=== PATIENT | female | born 1995 | race Caucasian/White ===

== ENCOUNTER 2020-11-10 11:16 | Outpatient (REF) | payer MEDICAID, SELFPAY ==
--- NOTE | 2020-11-10 11:28 | XR_ITS ---
EXAMINATION: XR KNEE, RIGHT CLINICAL INFORMATION: Right knee pain and instability COMPARISON: None TECHNIQUE: Four views of the right knee. FINDINGS: No fracture or subluxation. Compartmental joint spaces are maintained. No joint effusion. The soft tissues are unremarkable. XR/XR knee RT 4V IMPRESSION: Normal right knee.
== END 2020-11-10 11:17 | disposition home or self-care (01) ==
LOC: HO.XRAY 11:16
PROVIDERS: PCP Registered Nurse Community Health; Visit Provider Registered Nurse Community Health
DX: M23.51 Chronic instability of knee, right knee (principal)
CPT/HCPCS: 73564

== ENCOUNTER 2020-12-25 14:00 | Outpatient (RCR) | payer MEDICAID, SELFPAY | END 2021-01-13 15:15 | disposition other institution (70) | LOC: HO.PT 14:00 | PROVIDERS: PCP Registered Nurse Community Health; Visit Provider Registered Nurse Community Health | DX: M23.51 Chronic instability of knee, right knee (principal) | CPT/HCPCS: 97110; 97161; 97530 ==

== ENCOUNTER 2021-08-23 15:41 | Emergency (ER) | payer MEDICAID, SELFPAY ==
--- NOTE | ~2021-08-23 | US_ITS ---
EXAMINATION: US OBSTETRICAL ULTRASOUND CLINICAL INFORMATION: 7 weeks with cramping COMPARISON: OB ultrasound 08/17/2009. LMP: 07/08/2021. Gestational age by maternal dates is 6 weeks 4 days. Estimated date of delivery by maternal dates is 04/14/2022. TECHNIQUE: Both transabdominal and endovaginal scanning was performed. FINDINGS: A gestational sac is seen. A pole or yolk sac is not identified. Based upon the gestational sac size with a mean diameter of 0.56 cm, gestational age would be 5 weeks 1 day. Around the gestational sac, there is slightly irregular fluid collection seen which may represent some subchorionic hemorrhage. MATERNAL ADNEXA: The right has been removed The left maternal ovary measures 3.8 x 2.2 x 2.9 cm. There is no significant maternal adnexal mass. A small amount of fluid present in the cul-de-sac. US/US OB pelvic and transvaginal IMPRESSION: A gestational sac is seen without a pole or yolk sac. Some fluid is present around this which may represent a subchorionic bleed. Based upon the size of the sac gestational age by ultrasound would be 5 weeks 1 day. Recommend correlation with hCG and follow-up short interval ultrasound
[2021-08-23 17:12] VITALS: BP 135/89; PULSE 79; RESP 18; TEMP 36.4; O2SAT 100; BMI 28.3
--- NOTE | 2021-08-23 18:23 | ED_ITS ---
HPI - General Adult General Chief complaint: Abdominal Pain Stated complaint: first trimester cramping Time Seen by Provider: 08/23/21 18:21 Source: patient Mode of arrival: ambulatory Limitations: no limitations History of Present Illness HPI narrative: 26-year-old female about 7-8 weeks presented with 2 days of right-sided pelvic pain with cramps that radiate to the back. No vaginal bleeding, patient recently just found out about her . Patient declined nausea, vomiting, fever, chills, vaginal bleeding. No history of PID or STD. No history of ectopic . History of surgical removal of 1 of her ovaries. Related Data Allergies Allergy/AdvReac Type Severity Reaction Status Date / Time No Known Allergies Allergy Unverified 08/13/20 17:27 Review of Systems Review of Systems: All other systems are reviewed and are negative Constitutional: Reports as per HPI and Reports no additional constitutional complaints Eyes: Reports as per HPI and Reports no additional eye complaints Reports system reviewed and no additional complaints, except as documented Cardiovascular: Reports as per HPI and Reports no additional cardiovascular complaints Respiratory: Reports as per HPI and Reports no additional respiratory complaints Gastrointestinal: Reports as per HPI and Reports no additional gastrointestinal complaints Genitourinary: Reports no additional female genitourinary complaints Musculoskeletal: Reports no additional musculoskeletal complaints Skin/Breast: Reports system reviewed and no additional complaints, except as do cu Psychiatric: Reports no additional psychiatric complaints Endocrine: Reports no additional endocrine complaints Hematologic/Lymphatic: Reports no additional hematologic/lymphatic complaints Allergic/Immunologic: Reports no additional allergic/immunologic complaints Reports system reviewed and no additional complaints, except as documented and Reports Abnormal speech present [facility] Past Medical History Medical History Anxiety Social History Social History Advance Directives: No Advance Directives Information Provided: No Patient : Yes Physical Exam Vital Signs: Vital Signs: Last Vital Signs Temp 99.7 F 08/23/21 18:41 Pulse 90 08/23/21 18:41 Resp 16 08/23/21 18:41 BP 133/84 08/23/21 18:41 Pulse Ox 99 08/23/21 18:41 Body Mass Index 28.3 Vital signs have been reviewed as appeared to be correct. Blood pressure normal. Heart rate normal. Respiration rate normal. Temperature normal. Oxygen saturation normal. Appearance: Alert. Oriented X3. No acute distress. Head: Normal external exam. Normocephalic. Atraumatic. No Cordero signs noted. No raccoon eyes noted Eyes: PERRLA. EOMI. Conjunctiva and sclera normal. Eyelids normal. ENT: TM's Normal. Pharynx normal. Uvula midline. Moist mucous membranes. No trismus noted. No drooling noted. No muffled voice noted. Neck: Normal inspection. Neck supple. FROM. No adenopathy. Thyroid Normal. No meningeal signs. No neck mass noted. CVS: Normal heart rate and rhythm. Heart sound normal. No murmurs noted. Pulses normal throughout. Respiratory: No respiratory distress. Painless inspiration. Breath sounds normal. No wheezes/rales/rhonchi noted. Chest nontender. No accessory muscle usage noted or decreased air movement noted. Abdomen: Soft and nontender. Bowel sounds normal in all 4 quadrants. No distention noted. No organomegaly noted. No visible injury noted. Pelvic exam: Deferred for the ultrasound. Back: No CVA tenderness. Full range of motion noted. Skin: Skin warm and dry. Normal skin color. Normal skin turgor. No rashes/lesions/lacerations noted. Extremities: No lower extremity edema. Extremities exhibit normal range of motion. Extremities nontender. Neuro: Oriented X 3. Cranial nerve exam: II-XII are grossly intact No motor deficit. No sensory deficit. Reflexes normal. Course Course Course Narrative: Assessment and plan. about 5 weeks came in with lower abdominal cramps no vaginal bleeding, ultrasound showed 5 weeks old gestational sac with no intra sac content which could be too early to see, patient has an appointment with plating machine operator tomorrow to follow-up, patient was instructed to repeat hCG in 48 hours via her OBGYN doctor. Patient is a positive blood Rh type. Medical Decision Making Lab Data Lab results reviewed: Yes I reviewed the patient's lab results. Result diagrams: 08/23/21 18:38 08/23/21 18:38 Labs: Lab Results 08/23/21 08/23/21 08/23/21 Range/Units 18:37 18:38 18:38 WBC 10.3 (4.8-10.8) X10*3/uL RBC 4.08 L (4.20-5.50) X10*6/uL Hgb 12.3 (12.0-16.0) g/dl Hct 35.9 L (37-47) % MCV 88.0 (80-98) fL MCH 30.1 (27.0-33.0) pg MCHC 34.3 (31.0-35.0) g/dl RDW 12.5 (11.0-16.0) % Plt Count 266 (160-400) X10*3/uL MPV 9.5 (9.4-12.3) fL Immature Gran % (Auto) 0.3 (0.0-0.4) % Neut % (Auto) 67.6 (45-73) % Lymph % (Auto) 24.6 (20-40) % [place] % (Auto) 5.8 (2-11) % Eos % (Auto) 1.3 (0-4) % Baso % (Auto) 0.4 (0-2) % Lymph # (Auto) 2.5 (1.2-4.9) X10*3/uL [place] # (Auto) 0.6 (0.1-1.2) X10*3/uL Eos # (Auto) 0.1 (0.0-0.4) X10*3/uL Baso # (Auto) 0.0 (0.0-0.2) X10*3/uL Abs Immat Gran (auto) 0.03 (0.00-0.03) X10*3/uL Absolute Neuts (auto) 7.0 (2.0-8.3) X10*3/uL Absolute Nucleated RBC 0.000 (0.0-0.012) X10*3/uL Nucleated RBC % (auto) 0.0 (0.0-0.2) /100WBC Sodium 136 (135-145) mmol/L Potassium 4.4 (3.3-5.1) mmol/L Chloride 102 (96-108) mmol/L Carbon Dioxide 26 (22-29) mmol/L Anion Gap 12 (12-20) BUN 14 (9-16) mg/dL Creatinine 0.70 (0.5-1.4) mg/dL Estim Creat Clear Calc 102.1 Estimated GFR > 60 Random Glucose 86 (60-115) mg/dL Calcium 9.7 (8.4-10.2) mg/dL Total Bilirubin 0.2 (0.0-1.0) mg/dL Direct Bilirubin < 0.2 (0.0-0.5) mg/dL AST 15 (5-31) U/L ALT 22 (0-31) U/L Alkaline Phosphatase 54 (39-117) U/L Total Protein 7.2 (6.5-8.0) g/dL Albumin 4.2 (3.5-5.0) g/dL Lipase 32 (8-78) U/L Beta HCG, Quant 2492 mIU/mL Urine Color YELLOW Urine Appearance CLEAR Urine pH 7.0 (5.0-8.0) Ur Specific [place] 1.015 (1.005-1.025) Urine Protein NEG (NEG-TRACE) MG/DL Urine Glucose (UA) NEG (NEG) MG/DL Urine Ketones NEG (NEG) MG/DL Urine Blood NEG (NEG) Urine Nitrite NEG (NEG) Ur Leukocyte Esterase NEG (NEG) Blood Type 08/23/21 Range/Units 18:38 WBC (4.8-10.8) X10*3/uL RBC (4.20-5.50) X10*6/uL Hgb (12.0-16.0) g/dl Hct (37-47) % MCV (80-98) fL MCH (27.0-33.0) pg MCHC (31.0-35.0) g/dl RDW (11.0-16.0) % Plt Count (160-400) X10*3/uL MPV (9.4-12.3) fL Immature Gran % (Auto) (0.0-0.4) % Neut % (Auto) (45-73) % Lymph % (Auto) (20-40) % [place] % (Auto) (2-11) % Eos % (Auto) (0-4) % Baso % (Auto) (0-2) % Lymph # (Auto) (1.2-4.9) X10*3/uL [place] # (Auto) (0.1-1.2) X10*3/uL Eos # (Auto) (0.0-0.4) X10*3/uL Baso # (Auto) (0.0-0.2) X10*3/uL Abs Immat Gran (auto) (0.00-0.03) X10*3/uL Absolute Neuts (auto) (2.0-8.3) X10*3/uL Absolute Nucleated RBC (0.0-0.012) X10*3/uL Nucleated RBC % (auto) (0.0-0.2) /100WBC Sodium (135-145) mmol/L Potassium (3.3-5.1) mmol/L Chloride (96-108) mmol/L Carbon Dioxide (22-29) mmol/L Anion Gap (12-20) BUN (9-16) mg/dL Creatinine (0.5-1.4) mg/dL Estim Creat Clear Calc Estimated GFR Random Glucose (60-115) mg/dL Calcium (8.4-10.2) mg/dL Total Bilirubin (0.0-1.0) mg/dL Direct Bilirubin (0.0-0.5) mg/dL AST (5-31) U/L ALT (0-31) U/L Alkaline Phosphatase (39-117) U/L Total Protein (6.5-8.0) g/dL Albumin (3.5-5.0) g/dL Lipase (8-78) U/L Beta HCG, Quant mIU/mL Urine Color Urine Appearance Urine pH (5.0-8.0) Ur Specific [place] (1.005-1.025) Urine Protein (NEG-TRACE) MG/DL Urine Glucose (UA) (NEG) MG/DL Urine Ketones (NEG) MG/DL Urine Blood (NEG) Urine Nitrite (NEG) Ur Leukocyte Esterase (NEG) Blood Type A Positive Discharge Plan Discharge Clinical Impression: , threatened Patient Disposition: Home, Self-Care Instructions: Threatened Miscarriage (ED) Referrals: Maribel Davey MD [Physician] - 2 days
[2021-08-23 18:41] VITALS: BP 133/84; PULSE 90; RESP 16; TEMP 37.6; O2SAT 99
[2021-08-23 18:44] LABS: MANUAL DIFF FLAG NO
[2021-08-23 18:45] LABS: Basophils Percent Auto 0.4 % (0-2); Eosinophils Absolute Auto 0.1 X10*3/uL (0.0-0.4); Eosinophils Percent Auto 1.3 % (0-4); Hematocrit 35.9 % (37-47); Hemoglobin 12.3 g/dl (12.0-16.0); Imm Gran Abs Auto 0.03 X10*3/uL (0.00-0.03); Imm Gran Pct Auto 0.3 % (0.0-0.4); Lymphocytes Absolute Auto 2.5 X10*3/uL (1.2-4.9); Lymphocytes Percent Auto 24.6 % (20-40); Mean Corpuscular HGB Conc 34.3 g/dl (31.0-35.0); Mean Corpuscular Hemoglobin 30.1 pg (27.0-33.0); Mean Platelet Volume 9.5 fL (9.4-12.3); Monocytes Absolute Auto 0.6 X10*3/uL (0.1-1.2); Monocytes Percent Auto 5.8 % (2-11); Neutrophils Percent Auto 67.6 % (45-73); Platelet Count 266 X10*3/uL (160-400); Red Blood Count 4.08 X10*6/uL (4.20-5.50); Red Cell Distribution Width 12.5 % (11.0-16.0); White Blood Count 10.3 X10*3/uL (4.8-10.8)
[2021-08-23 18:49] LABS: Appearance Urine CLEAR; Color Urine YELLOW; Glucose Urine UA NEG (NEG); Leukocyte Esterase Urine NEG (NEG); Nitrite Urine NEG (NEG); Specific Gravity - Urine 1.015 (1.005-1.025); Urine Blood NEG (NEG); Urine Ketones NEG (NEG); Urine Protein NEG (NEG-TRACE)
[2021-08-23 19:01] LABS: Alanine Aminotransferase 22 U/L (0-31); Albumin Level 4.2 g/dL (3.5-5.0); Alkaline Phosphatase 54 U/L (39-117); Anion Gap 12 (12-20); Aspartate Amino Transferase 15 U/L (5-31); Bilirubin Direct < 0.2 mg/dL (0.0-0.5); Bilirubin Total 0.2 mg/dL (0.0-1.0); Blood Urea Nitrogen 14 mg/dL (9-16); Calcium 9.7 mg/dL (8.4-10.2); Carbon Dioxide 26 mmol/L (22-29); Chloride 102 mmol/L (96-108); Creatinine Clr Calc Pharmacy 102.1; Estimated Glomerular Filt Rate > 60; Glucose Random 86 mg/dL (60-115); Lipase 32 U/L (8-78); Potassium 4.4 mmol/L (3.3-5.1); Sodium 136 mmol/L (135-145); Total Protein 7.2 g/dL (6.5-8.0)
[2021-08-23 19:07] LABS: HCG Quantitative 2492 mIU/mL
--- NOTE | 2021-08-23 19:26 | PC.NURSE ---
Patient arrives to ED with c/o abdominal pain. Labs drawn and sent. Refusing IV and IVF.
== END 2021-08-23 20:15 | disposition home or self-care (01) ==
PROVIDERS: Emergency Provider Emergency Medicine; PCP Registered Nurse Community Health
DX: O20.0 Threatened abortion (principal); Z3A.08 8 weeks gestation of pregnancy
CPT/HCPCS: 36415; 76801; 76817; 80048; 80076; 81003; 83690; 84702; 85025; 86900; 86901; 96360; 99283; 99284

== ENCOUNTER → 2021-08-24 09:25 | Outpatient (BNVA) | payer MEDICAID, SELFPAY | PROVIDERS: PCP Registered Nurse Community Health; Visit Provider Advanced Practice Midwife | DX: O99.419 Diseases of the circulatory system complicating pregnancy, unspecified trimester (principal); I10 Essential (primary) hypertension | CPT/HCPCS: 99202 ==

== ENCOUNTER 2021-08-27 11:49 | Outpatient (REF) | payer MEDICAID, SELFPAY ==
[2021-08-27 13:56] LABS: HCG Quantitative 5110 mIU/mL
== END 2021-08-27 11:50 | disposition home or self-care (01) ==
LOC: HO.LAB 11:49
PROVIDERS: Advanced Practice Midwife; PCP Registered Nurse Community Health; Visit Provider Nurse Practitioner Family
DX: O16.9 Unspecified maternal hypertension, unspecified trimester (principal); Z3A.00 Weeks of gestation of pregnancy not specified
CPT/HCPCS: 36415; 84702

== ENCOUNTER 2021-09-03 10:03 | Outpatient (REF) | payer MEDICAID, SELFPAY ==
--- NOTE | ~2021-09-03 | US_ITS ---
EXAMINATION: OBSTETRICAL ULTRASOUND, FIRST TRIMESTER HISTORY: 26-year-old at approximately 6 weeks of gestation Rule out missed AB LMP: Unknown COMPARISON: 08/23/2021 TECHNIQUE: Real time transabdominal imaging with color and M-mode Doppler. FINDINGS: An empty intrauterine gestational sac with mean sac diameter of 1.2 cm corresponding to 5 weeks and 6 days is noted. No cysts embryonic pole or yoke sac is noted. This is consistent with the missed AB or blighted ovum. Left ovary is within normal limits. The right ovary is status post oophorectomy. No free fluid in the cul-de-sac GESTATIONAL AGE: 1. GA from LMP: 6.5 wks 2. GA from AUA: 5.6 wks ESTIMATED DATE OF DELIVERY: 1. JAY JAY from LMP: 04/21/2022 2. JAY JAY from AUA: 04/30/2022 US/US OB <= 14 weeks fetus IMPRESSION: 1. An empty intrauterine gestational sac without an embryonic pole or yoke sac. 2. The findings consistent with missed AB or blighted ovum. Discussion: I reviewed today's findings and informed her of the missed AB. We discussed the approximate management. I gave her reassurance that the incidence of first trimester missed AB is approximately 20-30% in the general population. One early miscarriage AB does not influence her prognosis for successful future pregnancies. Thank you very much for this referral. This note was generated with a voice recognition program. Please excuse any errors which may have been overlooked during my review of this note. Sometimes these errors may affect the content or meaning of a given sentence.
== END 2021-09-03 10:04 | disposition home or self-care (01) ==
LOC: HO.US 10:03
PROVIDERS: PCP Registered Nurse Community Health; Visit Provider Advanced Practice Midwife
DX: Z34.90 Encounter for supervision of normal pregnancy, unspecified, unspecified trimester (principal); I10 Essential (primary) hypertension
CPT/HCPCS: 76801

== ENCOUNTER 2021-09-07 14:57 | Outpatient (REF) | payer MEDICAID, SELFPAY ==
[2021-09-08 02:14] LABS: CT PCR NOT DETECTED (Not Detect.); NG PCR NOT DETECTED (Not Detect.)
== END 2021-09-07 14:58 | disposition home or self-care (01) ==
LOC: HO.LAB 14:57
PROVIDERS: Visit Provider Obstetrics & Gynecology
DX: Z34.90 Encounter for supervision of normal pregnancy, unspecified, unspecified trimester (principal)
CPT/HCPCS: 87491; 87591; 99212

== ENCOUNTER 2021-09-08 10:05 | Outpatient (REF) | payer MEDICAID, SELFPAY ==
--- NOTE | ~2021-09-08 | US_ITS ---
EXAMINATION: US OBSTETRICAL FOLLOW UP WITH BIOPHYSICAL PROFILE CLINICAL INFORMATION: Follow-up early COMPARISON: Previous ultrasound 09/03/2021 and 08/23/2021 TECHNIQUE: Transabdominal first trimester OB ultrasound FINDINGS: The uterus is normal in size and shape. There is an intrauterine gestational sac. Mean sac diameter measures 1.43 cm suggesting gestational age of 6 weeks 2 days. Compared to prior exams, there is not adequate interval growth. No pole or yolk sac is seen. There is no evidence of subchorionic collection. No focal uterine lesion is seen. There are nabothian cysts in the cervix. The right ovary has been removed. The left ovary is slightly enlarged and measures 4.9 x 2.7 x 2.5 cm, volume 17 mL. There is a 1.8 cm complex cyst in the left ovary with internal echoes probably representing a corpus luteum. There is a small amount of fluid in the pelvis. US/US OB follow up IMPRESSION: Intrauterine gestational sac. No pole or yolk sac seen. Compared to prior exams there is not expected interval growth. Ultrasound appearance is suggestive of blighted ovum/embryonic demise.
== END 2021-09-08 10:06 | disposition home or self-care (01) ==
LOC: HO.US 10:05
PROVIDERS: Visit Provider Obstetrics & Gynecology
DX: O02.1 Missed abortion (principal)
CPT/HCPCS: 76816; 99212

== ENCOUNTER 2021-09-23 10:25 | Outpatient (REF) | payer MEDICAID, SELFPAY ==
[2021-09-23 11:41] LABS: HCG Quantitative 21 mIU/mL
== END 2021-09-23 10:26 | disposition home or self-care (01) ==
LOC: HO.LAB 10:25
PROVIDERS: PCP Registered Nurse Community Health; Visit Provider Obstetrics & Gynecology
DX: O02.1 Missed abortion (principal)
CPT/HCPCS: 36415; 84702

== ENCOUNTER 2024-05-01 09:53 | Emergency (ER) | payer MEDICAID, SELFPAY ==
[2024-05-01 10:01] VITALS: BP 182/136; PULSE 92; RESP 16; TEMP 36.3; O2SAT 98; BMI 30.9
--- NOTE | 2024-05-01 10:09 | ECG_ITS ---
Test Reason : HTN Blood Pressure : / mmHG Vent. Rate : 079 BPM Atrial Rate : 079 BPM P-R Int : 152 ms QRS Dur : 064 ms QT Int : 370 ms P-R-T Axes : 025 022 031 degrees QTc Int : 424 ms Normal sinus rhythm Cannot rule out Anterior infarct , age undetermined Abnormal ECG No previous ECGs available Referred By: Generic ED Physician Electronically Signed By:COLLIN FRITZ MD
[2024-05-01 10:21] LABS: MANUAL DIFF FLAG NO
[2024-05-01 10:25] LABS: Basophils Absolute Auto 0.1 X10*3/uL (0.0-0.2); Basophils Percent Auto 0.6 % (0-2); Eosinophils Absolute Auto 0.1 X10*3/uL (0.0-0.4); Eosinophils Percent Auto 0.8 % (0-4); Hematocrit 42.7 % (37.0-47.0); Hemoglobin 14.7 g/dl (12.0-16.0); Imm Gran Abs Auto 0.02 X10*3/uL (0.00-0.03); Imm Gran Pct Auto 0.3 % (0.0-0.4); Lymphocytes Absolute Auto 2.4 X10*3/uL (1.2-4.9); Lymphocytes Percent Auto 30.5 % (20-40); Mean Corpuscular HGB Conc 34.4 g/dl (31.0-35.0); Mean Corpuscular Hemoglobin 29.3 pg (27.0-33.0); Mean Corpuscular Volume 85.2 fL (80.0-98.0); Mean Platelet Volume 9.4 fL (9.4-12.3); Monocytes Absolute Auto 0.5 X10*3/uL (0.1-1.2); Monocytes Percent Auto 5.8 % (2-11); Neutrophils Absolute Auto 4.8 x10*3/uL (2.0-8.3); Platelet Count 308 X10*3/uL (160-400); Red Blood Count 5.01 X10*6/uL (4.20-5.50); Red Cell Distribution Width 13.4 % (11.0-16.0); White Blood Count 7.8 X10*3/uL (4.8-10.8)
[2024-05-01 10:46] LABS: Anion Gap 14 (12-20); Blood Urea Nitrogen 9 mg/dL (9-16); Calcium 9.7 mg/dL (8.4-10.2); Carbon Dioxide 25 mmol/L (22-29); Chloride 105 mmol/L (96-108); Creatinine Clr Calc Pharmacy 91.6; Estimated Glomerular Filt Rate > 60; Glucose Random 80 mg/dL (60-115); Potassium 4.1 mmol/L (3.3-5.1); Sodium 140 mmol/L (135-145)
[2024-05-01 10:56] LABS: Troponin-I High Sensitivity < 2.7 ng/L (<3.5-17.0)
--- NOTE | 2024-05-01 10:57 | ED_ITS ---
HPI - General Adult General Chief complaint: General Medical Stated complaint: high BP Time Seen by Provider: 05/01/24 10:38 Source: patient Mode of arrival: ambulatory Limitations: no limitations History of Present Illness ED Provider: TED MUHAMMAD narrative: 28 yo female with chronic HTN on nifedipine for years but off x 2.5months due to lack of PCP went to dentist yesterday and was told BP was high she has no complaints other than mild headache. has new PCP appointment next month. she is not toxic no numbness, weakness, change in vision, no current chest pain. Has strong family history of HTN. MD complaint: HTN Onset (ago): month(s) Radiation: non-radiation Severity: moderate Pain Consistency: intermittent Relieving factors: none Exacerbating factors: none Associated symptoms: other (very mild headache) Treatments prior to arrival: none Related Data Home Medications ?Medication ?Instructions ?Recorded ?Confirmed nifedipine 30 mg tablet,extended 30 mg PO DAILY 08/24/21 release 24 hr (Procardia XL) prenat.vits,gilbert,[id number] 1 tab PO DAILY 08/24/21 Previous Rx's ?Medication ?Instructions ?Recorded misoprostol 200 mcg tablet 800 mcg (4 x 200 mcg) vaginal ONCE 09/08/21 1 day #4 tabs nifedipine 60 mg tablet,extended 60 mg PO DAILY #60 tabs 05/01/24 release Allergies Allergy/AdvReac Type Severity Reaction Status Date / Time morphine Allergy Intermediate rash Verified 05/01/24 10:05 Review of Systems 2 Review of Systems: Constitutional : No Fever, No Chills, No Fatigue ENT/Mouth : No sore throat, No Rhinorrhea Eyes: No Eye Pain, No Swelling, No Redness Cardiovascular : No Chest Pain, No SOB, No Dyspnea on Exertion Respiratory : No Cough, No Sputum Gastrointestinal : No Nausea, No Vomiting, No Diarrhea, No abdominal Pain Genitourinary : No Dysuria, No Urinary Frequency, No Hematuria, Musculoskeletal : No joint pain, No Myalgias, No Joint Swelling Skin : No Skin Lesions, No rash Neuro : No Weakness, No Numbness, No Dizziness, positive Headache Psych : No Anxiety/Panic, No Depression Heme/Lymph: No Bruising, No Bleeding,No Lymphadenopathy Endocrine : No Polyuria, No Polydipsia All other systems reviewed and are negative PMFSH Past Medical History Attestation statement: The following information was validated with the patient. Source: old records reviewed Medical History HTN (hypertension) Anxiety Surgical History Hx of removal of ovary Family History Family History Mother HTN (hypertension) Arthritis Father HTN (hypertension) Social History Social History Household Members: Children Housing: Apartment Alcohol intake: never Patient Tobacco Use Status: Never used Tobacco Sexual orientation: Straight/Heterosexual Gender identity: Female Physical Exam ED Vital Signs: Vital Signs - 24 hr 05/01/24 10:01 Temperature 97.3 F Pulse Rate 92 Respiratory Rate 16 Blood Pressure 182/136 H Pulse Oximetry 98 BMI result Body Mass Index 30.9 Appearance: Alert. Oriented X3. No acute distress. Eyes: Pupils equal, round and reactive to light. ENT: Pharynx normal. Neck: Normal inspection. Neck supple. CVS: Normal heart rate and rhythm. Pulses normal. Respiratory: No respiratory distress. Breath sounds normal. Abdomen: Soft and nontender. Skin: Skin warm and dry. Normal skin color. Normal skin turgor. Extremities: No lower extremity edema. No calf ttp Neuro: Oriented X 3. No motor deficit. No sensory deficit. Medical Decision Making Medical Decision Making [facility] Narrative: 28 yo female with chronic HTN here with mild headache but otherwise neurologically intact and non compliant with her BP medications given lack of PCP at this time was controlled with nifedipine 90mg ER but has not been on it for a while will obtain Cr and EKG - start on 60mg daily and has appointment next month with new PCP Differential Diagnosis Differential Diagnoses: The differential diagnosis associated with the presentation includes chronic HTN no signs of end organ damage at this time will start back on 60mg nifedipine since she has not been on it for a while Admission/Observation Consideration of admission/observation: Escalation of care including admission/observation considered no signs of end organ damage stable for DC Lab Data [facility] Lab Attestation statement: I reviewed the patient's lab results. 05/01/24 10:17 05/01/24 10:17 Labs: Lab Results 05/01/24 Range/Units 10:17 WBC 7.8 (4.8-10.8) X10*3/uL RBC 5.01 (4.20-5.50) X10*6/uL Hgb 14.7 (12.0-16.0) g/dl Hct 42.7 (37.0-47.0) % MCV 85.2 (80.0-98.0) fL MCH 29.3 (27.0-33.0) pg MCHC 34.4 (31.0-35.0) g/dl RDW 13.4 (11.0-16.0) % Plt Count 308 (160-400) X10*3/uL MPV 9.4 (9.4-12.3) fL Immature Gran % (Auto) 0.3 (0.0-0.4) % Neut % (Auto) 62.0 (45-73) % Lymph % (Auto) 30.5 (20-40) % [place] % (Auto) 5.8 (2-11) % Eos % (Auto) 0.8 (0-4) % Baso % (Auto) 0.6 (0-2) % Lymph # (Auto) 2.4 (1.2-4.9) X10*3/uL [place] # (Auto) 0.5 (0.1-1.2) X10*3/uL Eos # (Auto) 0.1 (0.0-0.4) X10*3/uL Baso # (Auto) 0.1 (0.0-0.2) X10*3/uL Abs Immat Gran (auto) 0.02 (0.00-0.03) X10*3/uL Absolute Neuts (auto) 4.8 (2.0-8.3) x10*3/uL Absolute Nucleated RBC 0.000 (0.0-0.012) X10*3/uL Nucleated RBC % (auto) 0.0 (0.0-0.2) /100WBC Sodium 140 (135-145) mmol/L Potassium 4.1 (3.3-5.1) mmol/L Chloride 105 (96-108) mmol/L Carbon Dioxide 25 (22-29) mmol/L Anion Gap 14 (12-20) BUN 9 (9-16) mg/dL Creatinine 0.80 (0.5-1.4) mg/dL Estim Creat Clear Calc 91.6 Estimated GFR > 60 Random Glucose 80 (60-115) mg/dL Calcium 9.7 (8.4-10.2) mg/dL Troponin I High Sens < 2.7 (<3.5-17.0) ng/L Independent Interpretation I performed an independent interpretation of an: EKG Interpretation: Rate: 79 Rhythm: NSR [place]: normal Normal P waves. Normal KRYSTAL. Normal QRS complex. ST T wave : normal no RIKKI qTC:424 prior studies: no acute ischemia The study has been interpreted contemporaneously by me. . External Record Review External record reviewed: Inpatient record Prescription Management I considered prescription management with: Other Discharge Plan Discharge Clinical Impression: HTN (hypertension) Qualifiers: Hypertension type: primary hypertension Qualified Code(s): I10 - Essential (primary) hypertension Patient Disposition: Home, Self-Care Instructions: Chronic Hypertension (ED), DASH Eating Plan (ED) Additional Instructions: start on the nifedipine 60mg daily check blood pressure frequently if it has not improved in 2 weeks and remains over 150 you may need to be increased to 90mg a day and be re seen in the ER return for worsening pain, numbness, weakness, or any other concerns. Prescriptions: New nifedipine 60 mg tablet extended release 60 mg PO DAILY Qty: 60 0RF No Action prenat.vits,gilbert,[id number] Tablet 1 tab PO DAILY nifedipine [Procardia XL] 30 mg tablet extended release 24hr 30 mg PO DAILY misoprostol 200 mcg tablet 800 mcg vaginal ONCE 1 Days Qty: 4 0RF Rx Instructions: Insert 800 mcg vaginal dose, 24 hours after Mifepristone dose by mouth Stand Alone Forms: Work/School Release Print Language: Italian
[2024-05-01 11:03] LABS: Appearance Urine Clear; Color Urine Yellow; Glucose Urine UA Negative (Negative); Leukocyte Esterase Urine Negative (Negative); Nitrite Urine Negative (Negative); PH 6.5 (5.0-9.0); Specific Gravity - Urine <= 1.005 (1.005-1.025); Urine Blood Negative (Negative); Urine Ketones Negative (Negative); Urine Protein Negative (Neg-Trace)
[2024-05-01 11:05] LABS: UPreg QC Valid YES; Urine Pregnancy NEGATIVE (NEGATIVE)
[2024-05-01 11:45] VITALS: BP 160/112
[2024-05-01] MEDS: NIFEdipine ER 30 MG TAB.ER.24 60 MG PO (11:45)
[2024-05-01 12:00] VITALS: BP 163/97; PULSE 79; TEMP 36.7
[2024-05-01 12:44] VITALS: BP 183/119; PULSE 84; RESP 16; TEMP 36.8; O2SAT 98
[2024-05-01 12:53] VITALS: BP 183/119; PULSE 84; RESP 16; TEMP 36.8; O2SAT 98
--- OUTSIDE RECORDS SUMMARY | 2024-05-03 10:19 | XMS_ITS | Continuity of Care Document ---
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 Name Role Phone Not on Staff, PCP Primary Care Physician Unavail able Encounter [facility] [place] Date(s): 03/07/23 - 04/06/[address] [address]- Allergies, Adverse Reactions, Alerts Substance Reaction Severity Status morphine rash Active Immunizations Given and Recorded Vaccine Date Status Refusal Reason tetanus/diphtheria/pertussis, acel(Tdap) 02/13/23 Given tetanus/diphtheria/pertussis, acel(Tdap) 07/23/19 Given Not Given Vaccine Date Status Refusal Reason influenza virus vaccine, inactivated 02/09/23 Not Given Patient Refuses Medications acetaminophen 325 mg oral tablet 650 mg, By Mouth, Every 4 hours, PRN, (1-3), may give 325mg per patient preference and re-dose [id number] within 4 hours, if needed. Patient should only receive a total of 650mg of Acetaminophen every 4 hours., # 50 tablet, Refills 0, Tot. Refills 0... Start Date: 04/01/23 Status: Ordered Aspirin Low Dose 81 mg oral delayed release tablet 2 tablet, By Mouth, Daily, # 60 tablet, 6 Refills, Maintenance, 12/16/22 14:51:00 EST, [facility], 152.4, cm, 11/18/22 10:14:00 EST, Height Start Date: 12/16/22 Status: Ordered Benadryl 25 mg oral tablet 25 mg, 1, tablet, By Mouth, 3 times a day, PRN as needed for motion sickness, # 30 tablet, 0 Refills, Maintenance Start Date: 02/22/23 Status: Ordered famotidine 20 mg oral tablet 20 mg, 1, tablet, By Mouth, 2 times a day, # 60 tablet, Refills 0, Maintenance, 03/21/23 10:08:00 EDT, Partial fill upon patient request if the prescription is for a schedule II opioid drug. Start Date: 03/21/23 Status: Ordered ferrous sulfate 325 mg oral enteric coated tablet 325 mg, 1, tablet, By Mouth, Daily, # 90 tablet, Refills 0, Tot. Refills 0, Maintenance, 04/01/23 9:36:00 EDT, Route to Pharmacy Electronically, [facility]/pharmacy #[id number], Partial fill upon patient request if the prescription is for a schedule II opioid drug... Start Date: 04/01/23 Status: Ordered ferrous sulfate 325 mg oral enteric coated tablet 325 mg, 1, tablet, By Mouth, Daily, # 90 tablet, Refills 1, Tot. Refills 1, Maintenance, 04/01/23 18:33:00 EDT, Route to Pharmacy Electronically, [facility]/pharmacy #[id number], Partial fill upon patient requestif the prescription is for a schedule II opioid urvashi... Start Date: 04/01/23 Stop Date: 09/28/23 Status: Ordered ibuprofen 800 mg oral tablet 800 mg, 1, tablet, By Mouth, Every 8 hours, PRN, (4-6), may give 400mg per patient preference and re-dose with 400mg within 8 hours if needed. Patient should only receive a total of 800mg of Ibuprofen every 8 hours., # 50 tablet, Refills 0, Tot. Ref... Start Date: 04/01/23 Status: Ordered NIFEdipine 90 mg oral tablet, extended release 90 mg, 1, tablet, By Mouth, Daily, # 30 tablet, Refills 0, Tot. Refills 0, Maintenance, 04/01/23 9:36:00 EDT, Route to Pharmacy Electronically, [facility]/pharmacy #[id number], Partial fill upon patient request if the prescription is for a schedule II opioid drug.... Start Date: 04/01/23 Status: Ordered Reglan 5 mg oral tablet 1 tablet = 5 mg, By Mouth, 4 times a day, # 120 tablet, 0 Refills, Maintenance, 03/21/23 10:07:00 EDT, Tablet, Partial fill upon patient request if the prescription is for a schedule II opioid drug. Start Date: 03/21/23 Status: Ordered Problem List Condition Confirmation Course Effective Dates Status Health St atus Informant Depression Confirmed Active growth restriction antepartum Confirmed Active HIstory of GERD (gastroesophageal reflux disease) Confirmed Active Hx of migraines Confirmed Active History of delivery Confirmed Active History of severe pre-eclampsia Confirmed Active Chronic hypertension Confirmed Active Low-lying placenta Confirmed Active Obesity during Confirmed Active Confirmed Active Severe obesity (BMI 35.0-39.9) with comorbidity Confirmed Active Social History Social History Type Response Smoking Status Never (less than 100 in lifetime) entered on: 09/19/22 Sex Patient Care team information Care Team Personnel Name: Not on Staff, PCP Position: S Physician (General Medicine) Member Role: PCP Care Team Related Persons Name: MARTELARIC Address: home [address] [facility] [address] [place] [address] Name: MARISA THOMPSON Address: [address] Address: home [address] [address] [place] Name: SAM THOMPSON Address: home [address] [place] [address] Name: EDUIN THOMPSON Address: Address: home [address] [address] [place] Name: STATES, NO ONE
--- OUTSIDE RECORDS SUMMARY | 2024-05-03 10:19 | XMS_ITS | Continuity of Care Document ---
Author Organization [facility] Address [address] [place] [address]- Care Team Providers Care Carbon Grinder Name Role Phone Not on Staff, PCP Primary Care Physician Unavail able Encounter [facility] [place] Date(s): 04/04/23 - 05/06/[address] [address]- Attending Physician: Not on Staff, Attending MD Allergies, Adverse Reactions, Alerts Substance Reaction Severity [...] give 325mg per patient preference and re-dose [id number] within 4 hours, if needed. Patient should only receive a total of 650mg of Acetaminophen every 4 hours., # 50 tablet, Refills 0, Tot. Refills 0... Start Date: 04/01/23 Status: Ordered Aspirin Low Dose 81 mg oral delayed release tablet 2 tablet, By Mouth, Daily, # 60 tablet, 6 Refills, Maintenance, 12/16/22 14:51:00 EST, [facility], 152.4, cm, 11/18/22 10:14:00 EST, Height [...] 04/01/23 9:36:00 EDT, Route to Pharmacy Electronically, [facility]/pharmacy #[id number], Partial fill upon patient request if the prescription is for a schedule II opioid drug... Start Date: 04/01/23 Status: Ordered ferrous sulfate 325 mg oral enteric coated tablet 325 mg, 1, tablet, By Mouth, Daily, # 90 tablet, Refills 1, Tot. Refills 1, Maintenance, 04/01/23 18:33:00 EDT, Route to Pharmacy Electronically, [facility]/pharmacy #[id number], Partial fill upon patient requestif the [...] 04/01/23 9:36:00 EDT, Route to Pharmacy Electronically, [facility]/pharmacy #[id number], Partial fill upon patient request if [...] Related Persons Name: MARTELARIC Address: home [address] [facility] [address] [place] [address] Name: MARISA THOMPSON Address: [address] Address: home [address] [address] [place] Name: SAM THOMPSON Address: home [address] [facility] [address] [place] [address] Name: EDUIN THOMPSON Address: [address] Address: home [address] [address] [place] Name: STATES, NO ONE
--- OUTSIDE RECORDS SUMMARY | 2024-05-03 10:19 | XMS_ITS | Continuity of Care Document ---
Author Organization [facility] Address [address] [place] [address]- Care Team Providers Care Emergency Management Coordinator Name Role Phone Desire Mejia DO Primary Care Physician Encounter [facility] [place] Date(s): 11/13/19 - 11/23/[address] [address]- [facility] Attending Physician: Evelin [place] Admitting Physician: Evelin [place] Referring Physician: AdmtrEvelin Allergies, Adverse Reactions, Alerts Substance Reaction Severity Status morphine Active Immunizations Given and Recorded Vaccine Date Status Refusal Reason tetanus/diphtheria/pertussis, acel(Tdap) 07/23/19 Given Medications aspirin 81 mg oral tablet 1 tablet = 81 mg, By Mouth, Daily, # 30 tablet, 5 Refills, Maintenance, 04/02/19 11:29:39 EDT, Tablet Start Date: 04/02/19 Status: Ordered Benadryl 25 mg oral capsule 1 capsule = 25 mg, By Mouth, Every 6 hours, PRN for allergy symptoms, # 100 capsule, 0 Refills, Maintenance, 09/20/19 0:42:26 EDT, Capsule Start Date: 09/20/19 Status: Ordered Electric blood pressure monitor Electric blood pressure monitor, See Instructions, # 1 each, Refills 0, Tot. Refills 0, Maintenance, home bp check 3 times per day, 08/13/19 14:24:22 EDT, Compound Start Date: 08/13/19 Status: Ordered Fioricet oral capsule 2 capsule, By Mouth, Every 4 hours, PRN as needed, not to exceed 6 capsules/day, # 30 capsule, 0 Refills, Maintenance, 09/09/19 11:26:01 EDT, Capsule, 2 capsule By Mouth Every 4 hours,PRN:as needed,Instr:not to exceed 6 capsules/day Start Date: 09/09/19 Status: Ordered Pepcid 20 mg oral tablet 1 tablet = 20 mg, By Mouth, Daily at bedtime, # 30 tablet, 3 Refills, Maintenance, 09/05/19 15:17:09 EDT, Tablet Start Date: 09/05/19 Status: Ordered Multivitamins with Folic Acid 1 mg oral tablet 1 tablet, By Mouth, Daily, # 90 tablet, 2 Refills, Maintenance, 03/08/19 14:50:06 EDT, Tablet, 1 tablet By Mouth Daily Start Date: 03/08/19 Status: Ordered Reglan 10 mg oral tablet 1 tablet = 10 mg, By Mouth, 3 times a day before meals and bedtime, PRN Headache, # 10 tablet, 1 Refills, Maintenance, 09/05/19 15:17:29 EDT Start Date: 09/05/19 Status: Ordered Reglan 10 mg oral tablet 1 tablet = 10 mg, By Mouth, Every 6 hours, # 120 tablet, 0 Refills, Maintenance, 09/20/19 0:41:43 EDT, Tablet Start Date: 09/20/19 Status: Ordered Problem List Condition Effective Dates Status Health Status Inform ant Irregular heart rate(Confirmed) Active Constipation during (Confirmed) Active Depression(Confirmed) Active Large for dates affecting ma nagement of mother(Confirmed) Active Marijuana use(Confirmed) Active GERD (gastroesophageal reflu x disease)(Confirmed) Active Hx of migraines(Confirmed) Active History of severe pre-eclampsia(Confirmed) Active Chronic hypertension(Confirmed) Active Migraine(Confirmed) Active Obesity during (Confirmed) Active Request for sterilization(Confirmed) Active Social History Social History Type Response Smoking Status Never (less than 100 in lifetime); Tobacco user in household: Yes entered on: 04/02/19 Sex
--- OUTSIDE RECORDS SUMMARY | 2024-05-03 10:19 | XMS_ITS | Continuity of Care Document ---
Author Organization [facility] Address [address] [place] [address]- Care Team Providers Care Line Maintenance Supervisor Name Role Phone Not on Staff, PCP Primary Care Physician Unavail able Encounter [facility] [place] Date(s): 02/10/23 - 03/12/[address] [address]- Allergies, Adverse Reactions, Alerts Substance Reaction Severity Status morphine rash Active Immunizations Given and Recorded Vaccine Date Status Refusal Reason tetanus/diphtheria/pertussis, acel(Tdap) 02/13/23 Given tetanus/diphtheria/pertussis, acel(Tdap) 07/23/19 Given Not Given Vaccine Date Status Refusal Reason influenza virus vaccine, inactivated 02/09/23 Not Given Patient Refuses Medications Aspirin Low Dose 81 mg oral delayed release tablet 2 tablet, By Mouth, Daily, # 60 tablet, 6 Refills, Maintenance, 12/16/22 14:51:00 EST, [facility], 152.4, cm, 11/18/22 10:14:00 EST, Height Start Date: 12/16/22 Status: Ordered Benadryl 25 mg oral tablet 25 mg, 1, tablet, By Mouth, 3 times a day, PRN as needed for motion sickness, # 30 tablet, 0 Refills, Maintenance Start Date: 02/22/23 Status: Ordered NIFEdipine 90 mg oral tablet, extended release 90 mg, 1, tablet, By Mouth, Daily, # 30 tablet, Refills 3, Tot. Refills 3, Maintenance, 02/15/23 14:41:00 EDT, Route to Pharmacy Electronically, [facility], Partial fill upon patient request if the prescription is for a schedule II... Start Date: 02/15/23 Status: Ordered Problem List Condition Confirmation Course [...] Personnel Name: Not on Staff, PCP Position: [facility] Physician (General Medicine) Member Role: PCP Care Team Related Persons Name: ARIC MARTEL Address: home [address] [place] [address] Name: MARISA THOMPSON Address: [address] Address: home [address] [place] [address] Name: STATES, NO ONE
--- OUTSIDE RECORDS SUMMARY | 2024-05-03 10:19 | XMS_ITS | Continuity of Care Document ---
Author Organization [facility] Address [address] [place] [address]- Care Team Providers Care Lean Specialist Name Role Phone Desire Mejia DO Primary Care Physician Encounter [facility] [place] Date(s): 07/23/19 - 11/13/[address] [address]- [facility] Attending Physician: Not on Staff, Attending MD [...]
--- OUTSIDE RECORDS SUMMARY | 2024-05-03 10:19 | XMS_ITS | Continuity of Care Document ---
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 [place] Date(s): 02/13/23 - 05/03/[address] [address]- Attending Physician: Not on Staff, Attending MD [...] give 325mg per patient preference and re-dose [id number] within 4 hours, if needed. Patient should only receive a total of 650mg of Acetaminophen every 4 hours., # 50 tablet, Refills 0, Tot. Refills 0... Start Date: 04/01/23 Status: Ordered Aspirin Low Dose 81 mg oral delayed release tablet 2 tablet, By Mouth, Daily, # 60 tablet, 6 Refills, Maintenance, 12/16/22 14:51:00 EST, [facility], 152.4, cm, 11/18/22 10:14:00 EST, [...] 04/01/23 9:36:00 EDT, Route to Pharmacy Electronically, [facility]/pharmacy #[id number], Partial fill upon patient request if the prescription is for a schedule II opioid drug... Start Date: 04/01/23 Status: Ordered ferrous sulfate 325 mg oral enteric coated tablet 325 mg, 1, tablet, By Mouth, Daily, # 90 tablet, Refills 1, Tot. Refills 1, Maintenance, 04/01/23 18:33:00 EDT, Route to Pharmacy Electronically, [facility]/pharmacy #[id number], Partial fill upon patient requestif the [...] 04/01/23 9:36:00 EDT, Route to Pharmacy Electronically, [facility]/pharmacy #[id number], Partial fill upon patient request if [...] Related Persons Name: MARTELARIC Address: home [address] [facility] [address] [place] [address] Name: MARISA THOMPSON Address: [address] Address: home [address] [address] [place] Name: SAM THOMPSON Address: home [address] [facility] [address] [place] [address] Name: EDUIN THOMPSON Address: [address] Address: home [address] [address] [place] Name: STATES, NO ONE
--- OUTSIDE RECORDS SUMMARY | 2024-05-03 10:19 | XMS_ITS | Continuity of Care Document ---
Author Organization [facility] Address [address] [place] [address]- Care Team Providers Care Supervisor Dimension Warehouse Name Role Phone Not on Staff, PCP Primary Care Physician Unavail able Encounter [facility] [place] Date(s): 02/13/23 - 04/19/[address] [address]- Attending Physician: Not on Staff, Attending MD [...] give 325mg per patient preference and re-dose [id number] within 4 hours, if needed. Patient should only receive a total of 650mg of Acetaminophen every 4 hours., # 50 tablet, Refills 0, Tot. Refills 0... Start Date: 04/01/23 Status: Ordered Aspirin Low Dose 81 mg oral delayed release tablet 2 tablet, By Mouth, Daily, # 60 tablet, 6 Refills, Maintenance, 12/16/22 14:51:00 EST, [facility], 152.4, cm, 11/18/22 10:14:00 EST, [...] 04/01/23 9:36:00 EDT, Route to Pharmacy Electronically, [facility]/pharmacy #[id number], Partial fill upon patient request if the prescription is for a schedule II opioid drug... Start Date: 04/01/23 Status: Ordered ferrous sulfate 325 mg oral enteric coated tablet 325 mg, 1, tablet, By Mouth, Daily, # 90 tablet, Refills 1, Tot. Refills 1, Maintenance, 04/01/23 18:33:00 EDT, Route to Pharmacy Electronically, [facility]/pharmacy #[id number], Partial fill upon patient requestif [...] 04/01/23 9:36:00 EDT, Route to Pharmacy Electronically, [facility]/pharmacy #[id number], Partial fill upon patient request [...] Related Persons Name: MARTELARIC Address: home [address] [facility] [address] [place] [address] Name: MARISA THOMPSON Address: [address] Address: home [address] [address] [place] Name: SAM THOMPSON Address: home [address] [facility] [address] [place] [address] Name: EDUIN THOMPSON Address: [address] Address: home [address] [address] [place] Name: STATES, NO ONE
--- OUTSIDE RECORDS SUMMARY | 2024-05-03 10:19 | XMS_ITS | Continuity of Care Document ---
Author Organization [facility] Address [address] [place] [address]- Care Team Providers Care Meter Engineer Name Role Phone Desire Mejia DO Primary Care Physician Encounter [facility] [place] Date(s): 01/21/20 - 03/27/[address] [address]- [facility] Attending Physician: Not on Staff, Attending MD Allergies, Adverse Reactions, Alerts Substance Reaction Severity Status morphine rash Active Immunizations Given and Recorded Vaccine Date Status Refusal Reason tetanus/diphtheria/pertussis, acel(Tdap) 07/23/19 Given Medications Fioricet oral capsule 2 capsule, By Mouth, Every 4 hours, PRN as needed, not to exceed 6 capsules/day, # 30 capsule, 0 Refills, Maintenance, 09/09/19 11:26:01 EDT, Capsule, 2 capsule By Mouth Every 4 hours,PRN:as needed,Instr:not to exceed 6 capsules/day Start Date: 09/09/19 Status: Ordered Multivitamins with Folic Acid 1 mg oral tablet 1 tablet, By Mouth, Daily, # 90 tablet, 2 Refills, Maintenance, 03/08/19 14:50:06 EDT, Tablet, 1 tablet By Mouth Daily Start Date: 03/08/19 Status: Ordered Problem List Condition Effective Dates Status Health Status Inform ant Depression(Confirmed) Active Marijuana use(Confirmed) Active GERD (gastroesophageal reflu x disease)(Confirmed) Active Hx of migraines(Confirmed) Active History of severe pre-eclampsia(Confirmed) Active Chronic hypertension(Confirmed) Active Migraine(Confirmed) Active Obesity during (Confirmed) Active Request for sterilization(Confirmed) Active Social History Social History Type Response Smoking Status Never (less than 100 in lifetime); Tobacco user in household: Yes entered on: 04/02/19 Sex
--- OUTSIDE RECORDS SUMMARY | 2024-05-03 10:19 | XMS_ITS | Continuity of Care Document ---
Author Organization [facility] Address [address] [place] [address]- Care Team Providers Care Controls Technician Name Role Phone Desire Mejia DO Primary Care Physician Encounter [facility] [place] Date(s): 07/23/19 - 11/20/[address] [address]- [facility] Attending Physician: Not on Staff, Attending [...]
--- OUTSIDE RECORDS SUMMARY | 2024-05-03 10:19 | XMS_ITS | Continuity of Care Document ---
Author Organization [facility] Address [address] [place] [address]- Care Team Providers Care Paste Up Worker Name Role Phone Not on Staff, PCP Primary Care Physician Unavail able Encounter [facility] Date(s): 02/06/23 - 03/08/[address] [id number] Allergies, Adverse Reactions, Alerts Substance Reaction Severity [...] tablet, 6 Refills, Maintenance, 12/16/22 14:51:00 EST, [facility], 152.4, cm, 11/18/22 10:14:00 EST, [...] 02/15/23 14:41:00 EDT, Route to Pharmacy Electronically, [facility], Partial fill upon patient request [...] Personnel Name: Not on Staff, PCP Position: [facility] Physician (General Medicine) Member Role: PCP Care Team Related Persons Name: ARIC MARTEL Address: home [address] [place] [address] Name: MARISA THOMPSON Address: [address] Address: home [address] [place] [address] Name: PT STATES, NO ONE
--- OUTSIDE RECORDS SUMMARY | 2024-05-03 10:19 | XMS_ITS | Continuity of Care Document ---
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 Role Phone Not on Staff, PCP Primary Care Physician Unavail able Encounter [facility] Date(s): 02/21/23 - 02/22/[address] [address] Discharge Disposition: A-D/C Home Attending Physician: Julio ABRAHAM, Nde Anders Admitting Physician: Ned Kim MD Referring Physician: Ned Kim MD Allergies, Adverse Reactions, Alerts Substance Reaction [...] tablet, 6 Refills, Maintenance, 12/16/22 14:51:00 EST, [facility], 152.4, cm, 11/18/22 10:14:00 EST, [...] 02/15/23 14:41:00 EDT, Route to Pharmacy Electronically, [facility], Partial fill upon patient request if the prescription is for a schedule II... Start Date: 02/15/23 Status: Ordered Reglan 10 mg oral tablet 1 tablet = 10 mg, By Mouth, 4 times a day, for 10 days, # 40 tablet, 0 Refills, Acute 03/04/23 10:25:00 EDT, 02/22/23 10:25:00 EDT, Tablet, [facility], Partial fill upon patient request if the prescription is for a schedule II opio... Start Date: 02/22/23 Stop Date: 03/04/23 Status: Ordered Problem List Condition Confirmation Course [...] obesity (BMI 35.0-39.9) with comorbidity Confirmed Active Vital Signs Most recent to oldest [Reference Range]: 1 2 3 Height 155 cm (02/21/23 4:03 PM) Weight 86.2 kg (02/21/23 4:03 PM) Oxygen Saturation [94-100 %] 99 % (02/22/23 9:00 AM) 99 % (02/22/23 5:58 AM) 97 % (02/22/23 3:52 AM) Pulse Rate [55-90 bpm] 117 bpm *H* (02/21/23 4:03 PM) Body Mass Index [18.5-24.99 kg/m2] 35.88 kg/m2 *>HHI* (02/21/23 4:03 PM) Blood Pressure [90-138/55-84 mm Hg] 144/87mm Hg *H* (02/22/23 12:00 PM) 144/89mm Hg *H* (02/22/23 9:00 AM) 136/82mm Hg (02/22/23 5:58 AM) Respiratory Rate [16-30 br/min] 17 br/min (02/21/23 4:03 PM) Temperature [96.8-100.4 DegF] 98.1 DegF (02/22/23 9:00 AM) 97.7 DegF (02/22/23 5:58 AM) 98.9 DegF (02/21/23 7:57 PM) Blood pressure sites Arm, right (02/21/23 4:03 PM) Temperature Route Oral (02/22/23 9:00 AM) Oral (02/22/23 5:58 AM) Oral (02/21/23 7:57 PM) Dry Weight 86.1 kg (02/21/23 4:03 PM) Weight Obtained Via Patient/family state d (02/21/23 4:03 PM) Dry Weight Obtained Via Patient/family s tated (02/21/23 4:03 PM) Social History Social History Type Response Smoking Status Never (less than 100 in lifetime) entered on: 09/19/22 Sex History and physical note * Julio ABRAHAM, Ned Anders: Darryl Gilliland DO: PERFORM Event Display: History and Physical Hospital Authored Date: [id number] Patient: ??VANDANA THOMAS ? Age:??27 Years?Sex:??Female?:??1995?? OB Reason for Admission OB Reason for Admission Reason for admission: Chronic hypertension LMP/EGA/JAY JAY Gestational Age (EGA) and JAY JAY? * Note: EGA calculated as of 02/21/2023 ?? JAY JAY:??05/03/2023?EGA*:??29 weeks 6 days ? History?(3,1,2,4)?Method:??Last Menstrual Period??(07/27/2022) History of Present Illness Patient is a 27-year-old -1-2-4 at 29 weeks and 6 days??with a past medical history of chronichypertension that is admitted for blood pressure monitoring and evaluation of headache.?? She was seen in high-risk clinic earlier today where she reports that she has had??a headache since last . ??She reports that this headache??feels different from her normal??headaches and migraines that she experiences.?? She reports that she has taken Tylenol as well as Benadryl without significant relief??in her headache. ??She localizes the pain mostly to the frontal??region. ?? We discussed the risks of section including??bleeding, infection, risks of anesthesia, and damage to surrounding structures. She would accept blood if needed in an emergency. Discussed that the risk of infection and use of prophylactic antibiotics are indicated with this procedure. Counseled regarding risk of damage to bladder, bowel, ureters, nerves, blood vessels, and muscles. Discussed that if any damage occurred we would address it in the OR either ourselves or would call in theappropriate surgeons to assist. ??Additionally discussed possible need for??vertical or classical incision. ??Discussed??that should this be indicated,??future TOLACs would not be recommended. ??All q uestions were answered and consents were signed. ?? Review of Systems Constitutional, Eye, Skin, Head/Neck, ENMT, Respiratory, Cardio, Gastrointestinal, Breast, Gynecologic, Genitourinary, Endocrine, Musculoskeletal, Immunologic, Hematologic, Lymphatic, Neurologic, Psych reviewed and negative except as noted in HPI. Physical Exam Vitals & Measurements T:??98.5?F ?? MI:??117?? RR:??17?? BP:??145/83?? HT:??155??cm?? WT:??86.2??kg?? BMI:??35.88?? Constitutional:??Well-developed, no acute distress. Respiratory:??unlabored breathing?clear to auscultation bilaterally Cardiovascular:??Regular rate??and rhythm??no murmurs or other adventitious sounds Abdomen/GI:??Soft, non-tender, non-distended, no guarding or rebound tenderness.??Gravid. Extremities:??No edema or tenderness. Warm and well-perfused.?? Skin:??No rash or jaundice. Neurological/Psychiatric:??Appearance appropriate, mood and affect stable. Assessment/Plan Assessment:??Patient is a 27-year-old -1-2-4 at 29 weeks and 6 days with a past medical history of chronic hypertension on nifedipine 90mg??that is admitted for blood pressure monitoring and evaluation of headache.?Patient's??clinical picture is concerning for potential superimposed preeclampsia??as??her antihypertensive regimen has recently been uptitrated from nifedipine 60 mg to nifedipine 90 mg??as well as she was recently diagnosed with FGR.??Patient did have a BPP earlier today which was 8 out of 8 and??demonstrated normal umbilical artery Doppler.??Given??patient's increasing??antihypertensive regiment??and new FGR,??patient is admitted for??blood pressure monitoring??and headache evaluation. ?? Plan for Reglan and Benadryl and PRN tylenol??and attempt to alleviate headache and re-draw HELLP labs to evaluate for worsening hypertensive disorder.??Additionally, plan to obtain placental eval tomorrow, 02/22 to assist in possible delivery planning ?? Chronic hypertension (I10):? - Current antihypertensive agents: Nifedipine 90 daily - Repeat HELLP labs on admission pending ? growth restriction antepartum (O36.5990):? Last growth 02/15: AC <10%ile, EFW 12% Twice weekly testing scheduled Dopplers weekly scheduled ?? Headache (R51.9):? - Tylenol PRN - Reglan/Benadryl PRN ?? Low-lying placenta (O44.40):? [p] Follow up transvaginal ultrasound tomorrow, 02/22 ?? (Z34.90):? - CEFM and Wingate overnight - GBS to be collected - CS (with classical) consented ?? MFM note?? (late entry) Patient seen on day of admission and examined with Dr. Funk. ?? Case discussed with team. ??Agree with assessment and plan as indicated in the note.? Ned Kim MD ?? OB History History?(3,1,2,4)? # 1 ?Baby 1 ?Outcome Date:??2008 ?Outcome or Result:??Spontaneous ?Gest Age:??4 weeks ? Outcome:? Sex:??-- ?? # 2 ?Baby 1 ?Outcome Date:??08/05/2010?Outcome or Result:??Vaginal ?Gest Age:??37 weeks ? Outcome:??Live ? Sex:??Female?Wt:?2608 g ?Maternal Complications:??Pre-eclampsia ?Anesthesia Type:??Epidural ?Hospital:??[facility] ?Comment:??Induction of labor for labile blood pressure in the third trimester ?? # 3 ?Baby 1 ?Outcome Date:??08/29/2011?Outcome or Result:??Vaginal ?Gest Age:??41 weeks ? Outcome:??Live ? Sex:??Male ?Anesthesia Type:??Epidural ?Hospital:??[facility] ?Comment:??Induction of labor for postdates. ??No preeclampsia ?? # 4 ?Baby 1 ?Outcome Date:??02/02/2017?Outcome or Result:??Vaginal ?Gest Age:??35 weeks 5 days ? Outcome:??Live ? Sex:??Female?Wt:?2126 g ?Maternal Complications:??Pre-eclampsia ?Anesthesia Type:??Epidural ?Hospital:??[facility] ?Comment:??Induction of labor for preeclampsia ?? # 5 ?Baby 1 ?Outcome Date:??10/01/2019?Outcome or Result:??Vaginal ?Gest Age:??37 weeks 2 days ? Outcome:??Live ? Sex:??Male?Wt:?2760 g ? Complications:??None ?Hospital:??[facility] ?? # 6 ?Baby 1 ?Outcome Date:??2020 ?Outcome or Result:??Spontaneous ?Gest Age:??-- ? Outcome:? Sex:??-- Labs Labs Labs & Tests Antibody Screen: Negative (09/21/22) Chlamydia Trachomatis Amplified Probe: NEGATIVE (10/21/22) Creatinine-Blood: 0.6 mg/dL (02/13/23) Down Syndrome Age Risk FTS: Age Risk: (10/11/22) Down Syndrome Scrn Risk FTS: Screening Risk: (10/11/22) Glucose 50 Gm, +60 Minutes: 104 mg/dL (02/13/23) Hct:??33.8 %??Low (02/21/23) Hepatitis B Surface Antigen: NEGATIVE (09/21/22) Hepatitis C Ab: NEGATIVE (09/21/22) Hgb: 11.8 Gm/dL (02/21/23) HIV 4th Generation Ab-Ag Result: NEGATIVE (09/21/22) RPR Titer Result: NOT INDICATED (02/13/23) Rubella IgG Ab: POSITIVE (09/21/22) Syphilis Screen by HELENE: NEGATIVE (02/13/23) Trisomy 18 Scrn Risk FTS: Screening Risk: (10/11/22) Urine Culture: Urine Culture (09/21/22) Problem List Active Active Problem List Chronic hypertension: (Medical) Depression: (Medical) growth restriction antepartum: (Medical) HIstory of GERD (gastroesophageal reflux disease): (Medical) History of delivery: (Medical) History of severe pre-eclampsia: (Medical) Hx of migraines: (Medical) Low-lying placenta: (Medical) Obesity during : (Medical) : (Obstetric) (07/27/22) : (Medical) Severe obesity (BMI 35.0-39.9) with comorbidity: (Medical) Procedure/Surgical History Unilateral oophorectomy: 2019 Vaginal delivery Home Medications Aspirin: 2 tablet, By Mouth, Daily NIFEdipine: 90 mg = 1 tablet, By Mouth, Daily Allergies morphine??(rash) Social History Alcohol Use: Never. 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 Regular exercise: Yes. Exercise type: Walking., 03/08/2019 Home/Environment Living situation: Home/Independent. Lives with: Children., 09/19/2022 Nutrition/Health Diet: Regular., 03/08/2019 Sexual Sexually involved in last 6 months: Yes. Gender identity: Identifies as female. Self described orientation: Straight or heterosexual. Preferred pronoun: She/her., 03/08/2019 Substance Abuse Use: Current. Type: Marijuana. Other: Stopped July 2022 with ., 09/19/2022 Tobacco Use: Never (less than 100 in lifetime)., 09/19/2022 Family History Mother (): Hypertension Father: Hypertension Plan No Data Found Ultrasound OMMENTS: ?BPP=8. ?The estimated weight is normal, but the AC is ??<10th percentile, consistent with growth restriction ??(FGR). ??The umbilical artery Doppler is normal. ?MFM Consultation: Patient followed in [facility] with ??known history of preeclampsia. She has CHTN on ??nifedipine 60 mg daily. Her headaches have been ??increasing and she was offered inpatient monitoring, ??but declined due to childcare issues. Her HELLP labs ??were normal on 02/13/23. Today she had a mild ??headache that resolved with Tylenol. She has no N/V, ??visual changes or abdominal pain. FM normal. No labor ??symptoms. ?PE: ??Gen: NAD ??CV: RRR ??Lung: CTA ??GI: soft, NT, gravid ??Neuro: DTR 2+ ?I discussed the above findings with the patient. We ??discussed the possible etiologies for growth restriction ??including constitutional, viral infections, placental ??insufficiency, maternal medical conditions, smoking, ??chromosomal abnormalities, other syndromes and ??incorrect dating. Amniotic fluid and UA Doppler ??measurements were performed and were normal. She ??has no medical conditions that increase the risk of ??growth restriction. The increased risk of ??morbidity and mortality was discussed. I reviewed the ??risk of both antepartum and preeclampsia ??with the patient, signs and symptoms of preeclampsia, ??and when to present for evaluation. ?We recommend against screening for toxoplasmosis, ??rubella, or herpes in pregnancies with FGR in the ??absence of other risk factors and recommend PCR for ??CMV in women with unexplained FGR who elect ??diagnostic testing with amniocentesis. If the patient ??delivers at <34 weeks for placental insufficiency, ??including FGR, testing for antiphospholipid antibody ??syndrome is recommended with beta 2 glycoprotein ??IgG &IgM, anticardiolipin antibody IgG &IgM and lupus ??anticoagulant. ?We review a high likelihood of developing ??preeclampsia. Based on her clinical presentation and ??BP today I do not this she has preeclampsia yet, ??though close surveillance required. I increased her ??nifedipine XL to 90 mg daily today. Due to the high risk ??of early preeclampsia, I have transferred her to High ??Risk Clinic. ?Recommendations: ??Growth every 3 weeks starting ??Twice weekly surveillance with weekly BPP/UA Doppler ??and NST ??APS testing if delivery indicated prior to 34 weeks ??Delivery at 37 weeks ??Transfer to [facility] ??Weekly HELLP labs/TPCr due to risk of progression [1] [1]??BPP + Doppler + Growth; Joseline Pantoja MD 02/15/2023 15:07 EDT Hospital Progress note * Ginette Henderson RN: PERFORM, SIGN, VERIFY Event Display: [facility] Authored Date: Patient: VANDANA THOMAS Age: 27 years Sex: Female : 1995 Associated Diagnoses: None Author: Ginette Henderson RN Pt vital signs stable overnight, mild range. Pt states she had a 3 out of 10 headache at 19:30 which was resolved with medications, see MAR. Pt denies changes in vision, RUQ pain, or shortness of breath. Pt wearing compression boots. Urine output has been adequate overnight. Pt on continuos heart rate monitoring. Pt denies feeling any contractions, cramping, or leaking of fluid. Pt hoping to go home today. Will continue to monitor. * Debra Montejo DO: PERFORM Event Display: [facility] Authored Date: Patient: ??VANDANA THOMAS ? Age:??27 Years?Sex:??Female?:??1995?? LMP/EGA/JAY JAY Gestational Age (EGA) and JAY JAY? * Note: EGA calculated as of 02/21/2023 ?? JAY JAY:??05/03/2023?EGA*:??29 weeks 6 days ? History?(3,1,2,4)?Method:??Last Menstrual Period??(07/27/2022) Subjective In to check in on Vandana and collect GBS She finds her headache is improving, rates it about 3/10, down from a 5-6/10. She finds it is a dull ache all over. Some sensitivity to light but not too much. No other symptoms Denies contractions, leakage of fluid, vaginal bleeding. Admits to good movement OB Assessment Baby A Baseline:135 Baseline Description:Normal, 110-160 bpm Baseline Variability:Moderate variability Accelerations:Present Deceleration:None Physical Exam Vitals & Measurements T:??98.5?F ?? MI:??117?? RR:??17?? BP:??145/83?? HT:??155??cm?? WT:??86.2??kg?? BMI:??35.88?? GBS collected OB Intake and Output Intake and Output Results?? No results in record. Assessment/Plan Assessment:??27yo at 29w6d with a past medical history of chronic hypertension on nifedipine 90mg that is admitted for blood pressure monitoring and evaluation of headache. Vitals significantfor mild range blood pressures. Currently headache is improving without medications but patient would like to take reglan/Benadryl around 2030 tonight. GBS collected. ?? Chronic hypertension (I10): ??- Current antihypertensive agents: Nifedipine 90 daily ??- Repeat??HELLP labs wnl, TPCR pending ??- BP q2h, q4h?- I&OS ??- daily weights ? growth restriction antepartum (O36.5990):?Last growth 02/15: AC <10%ile, EFW 12% ??Twice weekly testing scheduled ??Dopplers weekly scheduled ? Headache (R51.9):?- Tylenol PRN ??- Reglan/Benadryl PRN ? Low-lying placenta (O44.40):?[p] Follow up transvaginal ultrasound tomorrow, 02/22 ? (Z34.90):?- CEFM and Wingate overnight ??- GBS??collected ??- CS (with classical) consented ?? OB History History?(3,1,2,4)? # 1 ?Baby 1 ?Outcome Date:??2009 ?Outcome or Result:??Spontaneous ?Gest Age:??4 weeks ? Outcome:? Sex:??-- ?? # 2 ?Baby 1 ?Outcome Date:??08/05/2010?Outcome or Result:??Vaginal ?Gest Age:??37 weeks ? Outcome:??Live ? Sex:??Female?Wt:?2608 g ?Maternal Complications:??Pre-eclampsia ?Anesthesia Type:??Epidural ?Hospital:??[facility] ?Comment:??Induction of labor for labile blood pressure in the third trimester ?? # 3 ?Baby 1 ?Outcome Date:??08/29/2011?Outcome or Result:??Vaginal ?Gest Age:??41 weeks ? Outcome:??Live ? Sex:??Male ?Anesthesia Type:??Epidural ?Hospital:??[facility] ?Comment:??Induction of labor for postdates. ??No preeclampsia ?? # 4 ?Baby 1 ?Outcome Date:??02/02/2017?Outcome or Result:??Vaginal ?Gest Age:??35 weeks 5 days ? Outcome:??Live ? Sex:??Female?Wt:?2126 g ?Maternal Complications:??Pre-eclampsia ?Anesthesia Type:??Epidural ?Hospital:??[facility] ?Comment:??Induction of labor for preeclampsia ?? # 5 ?Baby 1 ?Outcome Date:??10/01/2019?Outcome or Result:??Vaginal ?Gest Age:??37 weeks 2 days ? Outcome:??Live ? Sex:??Male?Wt:?2760 g ? Complications:??None ?Hospital:??[facility] ?? # 6 ?Baby 1 ?Outcome Date:??2020 ?Outcome or Result:??Spontaneous ?Gest Age:??-- ? Outcome:? Sex:??-- Active Problem List Active Problem List Chronic hypertension: (Medical) Depression: (Medical) growth restriction antepartum: (Medical) HIstory of GERD (gastroesophageal reflux disease): (Medical) History of delivery: (Medical) History of severe pre-eclampsia: (Medical) Hx of migraines: (Medical) Low-lying placenta: (Medical) Obesity during : (Medical) : (Obstetric) (07/27/22) : (Medical) Severe obesity (BMI 35.0-39.9) with comorbidity: (Medical) Medications Medications (6) Active SCHEDULED: (4) Aspirin 81 mg EC Tablet (aspirin 81 mg oral delayed release tablet) ??162 mg, By Mouth, Daily diphenhydrAMINE 50 mg/mL Inj (Benadryl Inj) ??50 mg 1 mL, IV Push, 2 times a day Metoclopramide 5 mg/mL Inj (2 mL) (Reglan Inj) ??10 mg, IV Push Slowly, 3 times a day before meals and bedtime NIFEdipine 30 mg ER Tablet (NIFEdipine 30 mg oral tablet, extended release) ??90 mg, By Mouth, Daily CONTINUOUS: (0) PRN: (2) Acetaminophen 325 mg Tablet (Tylenol 325 mg oral tablet) ??975 mg, By Mouth, Every 6 hours Calcium Carbonate 500 mg (Calcium 200 mg) Chewable Tablet (Tums 500 mg Tablet) ??1,000 mg 2 tablet,Chew, 3 times a day Allergies morphine??(rash) Note * Event Display: [facility]uid Check Authored Date: [id number] OBSTETRICS REPORT PATIENT INFO: CMRN: [id number] BMRN: [id number] : [birth year] (27 yrs)(F) Name: VANDANA WILLIMA Visit Date: 02/22/2023 01:31 pm PERFORMED BY: Performed By: Yasmeen Cuellar RDMS Attending: Josh Corey MD Referred By: Ned Kim MD In-PATIENT [facility] INDICATIONS: growth restriction ( FGR / IUGR) (small O36.5 AC) Low-lying placenta O44.40 Chronic HTN O10.91_ History of delivery Z87.51 History of severe pre-eclampsia Z87.59 EVALUATION: Num Of Fetuses: 1 Heart Rate(bpm): 142 Cardiac Activity: Present Presentation: Breech Placenta: Posterior Low-lying Amniotic Fluid GREGOR FV: Within normal limits GREGOR Sum(cm) Largest Pocket(cm) 13.7 5.8 RUQ(cm) RLQ(cm) LUQ(cm) LLQ(cm) 1.1 4.7 2.1 5.8 Comment: Active movements seen. BIOMETRY: GESTATIONAL AGE: LMP: 30w 0d Date: 07/27/22 JAY JAY: 05/03/23 Best: 30w 0d Det. By: LMP (07/27/22) JAY JAY: 05/03/23 DOPPLER - VESSELS: Umbilical Artery S/D %tile PI %tile ADFV RDFV 3.9 92 1.2 89 No No CERVIX UTERUS ADNEXA: Cervix Length: 5.3 cm. Appears closed Comment Vaginal scanning was done. COMMENTS: The amniotic fluid volume is normal. The cervical length is normal. Placenta is posterior low lying. Josh Corey MD Electronically Signed Final Report 02/22/2023 01:57 pm * Event Display: [facility] Fluid Check Authored Date: Please click on pdf link to open report * Nichelle Shaikh RN: PERFORM Event Display: Discharge/Transfer Note Hospital Authored Date: [id number] Nursing Discharge Note Entered On: 02/22/2023 15:37 EDT Performed On: 02/22/2023 15:37 EDT by Nichelle Shaikh RN Nursing Discharge Note 2 Discharge Time : 02/22/2023 15:30 EDT Discharge Level of Care at Discharge : Home/Senior Care/Foster Care Patient Left Unit Via : Ambulatory Patient Accompanied Off Unit with : Other: self DC Instructions Provided & Signed by Pt : Yes Patient Understands D/C Instructions : Yes Patient Instructions Discharge Signed : Yes Did Pt have Specialty Bed or Wound Vac : No Nichelle Shaihk RN - 02/22/2023 15:37 EDT * Julio ABRAHAM, Ned Anders: Darryl Gilliland DO: PERFORM Event Display: Discharge/Transfer Note Hospital Authored Date: [id number] Patient: ??VANDANA THOMAS ? Age:??27 Years?Sex:??Female?:??1995?? Admit Date Admission Date: 02/21/2023 Discharge Date 02/22/2023 OB Reason for Admission OB Reason for Admission Reason for admission: Chronic hypertension [facility] Hospital Course Patient is a 27-year-old -1-2-4 at 29 weeks and 6 days with a past medical history of chronic hypertension on nifedipine 90mg??that is admitted for blood pressure monitoring and evaluation of headache.?? Patient's headache resolved overnight with reglan and benadryl.?? Additionally, her HELLP labs on admission were WNL.?? Her blood pressures continue to be normo-low mild range on her currentregiment of nifedipine 90mg.?? Placental evaluation performed today ?? Given her resolution of headache, normal HELLP labs, and appropriate blood pressures in the setting of cHTN, patient was appropriate for discharge today with strict return precautions including increasing headache??without resolution following medicine,??vision changes, right upper quadrant pain, bleeding, leaking, regular contractions. Objective/Physical Exam on Day of Discharge Vitals & Measurements T:??98.1?F ?? HR:??96(Monitored)?? MI:??117?? RR:??17?? BP:??144/89?? SpO2:??99%?? HT:??155??cm?? WT:??86.2??kg?? BMI:??35.88?? Constitutional:??Well-developed, no acute distress. Respiratory:??unlabored breathing?clear to auscultation bilaterally Cardiovascular:??Regular rate??and rhythm??no murmurs or other adventitious sounds Abdomen/GI:??Soft, non-tender, non-distended, no guarding or rebound tenderness.??Gravid. Extremities:??No edema or tenderness. Warm and well-perfused.?? Skin:??No rash or jaundice. Neurological/Psychiatric:??Appearance appropriate, mood and affect stable. Assessment/Plan/Discharge Diagnosis Assessment:??Patient is a 27-year-old -1-2-4 at 29 weeks and 6 days with a past medical history of chronic hypertension on nifedipine 90mg??that is admitted for blood pressure monitoring and evaluation of headache.?Patient's??clinical picture is concerning for potential superimposed preeclampsia??as??her antihypertensive regimen has recently been uptitrated from nifedipine 60 mg to nifedipine 90 mg??as well as she was recently diagnosed with FGR.??Patient's headache resolved with ReglanBenadryl overnight??and blood pressures have been??normotensive to low mild??in the setting of known chronic hypertension.??Additionally patient's??labs on admission were normal. Given his reassuringclinical picture, patient is appropriate for discharge pending completion of??placental evaluation. ? Chronic hypertension (I10):? - Current antihypertensive agents: Nifedipine 90 daily - Repeat HELLP labs on admission WNL ? growth restriction antepartum (O36.5990):? Last growth 02/15: AC <10%ile, EFW 12% Twice weekly testing scheduled Dopplers weekly scheduled ?? Headache (R51.9):? - Tylenol PRN - Reglan/Benadryl PRN ?? Low-lying placenta (O44.40):? [p] Follow up transvaginal ultrasound today, 02/22 ?? (Z34.90):? - GBS pending - CS (with classical) consented ?? MFM note? Patient seen and examined this morning with Dr. Funk. ?? Case discussed with team. ??Agree with assessment and plan as indicated in the note.??D/C home today. ?? Ned Kim MD ?? Future Appointments Monday 9:20 AM EDT ?? Where: [facility] - Field Service Technician [address] [place] [id number]- Monday 9:20 AM EDT ?? Where: [facility] - [address] [address]- Monday 9:20 AM EDT ?? Where: [facility] - [address] [address]- Monday 9:20 AM EDT ?? Where: [address] [address]- Monday 9:20 AM EDT ?? Where: [address] [address]- Monday 9:20 AM EDT ?? Where: [address] [address]- Monday 8:20 AM EDT ?? Where: [place] [address]- Delivery Summary Delivery Summary Maternal Information ??Delivery Information ?Gestational Age at Delivery: ??30 weeks ? Baby A ??Labor Information ? monitoring: ??External monitor ? Discharge Medications ???Aspirin (Aspirin Low Dose 81 mg oral delayed release tablet)???NIFEdipine (NIFEdipine 90 mg oraltablet, extended release) Immunizations during Hospitalization Vaccine Date Status Commentstetanus/diphtheria/pertussis, acel(Tdap) 02/13/2023 Given influenza virus vaccine, inactivated - Not Given Patient Refuses tetanus/diphtheria/pertussis, acel(Tdap) 07/23/2019 Given Infant Feeding Method No Results Lab Results Test Name Test Result Date/TimeWBC 10.1 k/mm3 02/21/2023 16:42 EDT RBC 4.00 m/mm3 (Low) 02/21/2023 16:42 EDT Hgb 11.8 Gm/dL 02/21/2023 16:42 EDT Hct 33.8 % (Low) 02/21/2023 16:42 EDT MCV 84.5 femtoliters 02/21/2023 16:42 EDT MCH 29.5 pg 02/21/2023 16:42 EDT MCHC 34.9 g/dL 02/21/2023 16:42 EDT Platelet Count 255 k/mm3 02/21/2023 16:42 EDT RDW-SD 40.3 femtoliters 02/21/2023 16:42 EDT MPV 9.7 femtoliters 02/21/2023 16:42 EDT Nucleated RBC (Automated) 0.0 #/100 WBC'S 02/21/2023 16:42 EDT Abs. NRBC 0.0 k/mm3 02/21/2023 16:42 EDT Creatinine-Blood 0.9 mg/dL 02/21/2023 16:42 EDT Estimated GFR Creatinine 93 ML/MIN/1.73 M2 02/21/2023 16:42 EDT AST (SGOT) 11 units/L 02/21/2023 16:42 EDT ALT (SGPT) 7 units/L 02/21/2023 16:42 EDT Protein, Total Urine Random 18 mg/dL 02/21/2023 18:22 EDT TP/Cr Ratio 0.09 02/21/2023 18:22 EDT Creatinine, Urine 195.4 mg/dL 02/21/2023 18:22 EDT Patient Instructions Discharge: home, Call your the office with any concerns including:?? Heavy vaginal bleeding?? Fever of 100.4 or greater Foul-smelling vaginal discharge Difficulty or burning with urination?? Nausea and vomiting with inability to tolerate food,?? Shortness of breath or chest pain. Swelling of the extremities. Headache, vision changes, right upper quadrant pain ?? * Nelly CHAVES, Nichelle Reddy: PERFORM Event Display: Patient Education/Instruction Authored Date: [id number] Inpatient Adult Discharge Instructions [address] [address] Name: VANDANA THOMAS : 1995 Visit: 02/21/2023 15:53:00 Current Date: 02/22/2023 14:46 Account: [id number] Inpatient Adult Discharge Instructions We would like to thank you for allowing us to assist you with your healthcare needs. The following includes patient education materials and information regarding your injury/illness. Our entire staffstrives to provide an excellent experience for our patients and their families. PLEASE ENSURE YOU FOLLOW-UP PER THE INSTRUCTIONS BELOW! ?? YOUR OPINION IS IMPORTANT TO US! Please complete the survey you may receive by mail or email. Your feedback will be used to make improvements to the healthcare experiences of our patients and their families. Surveys are administered by [employer] ?? If further treatment with your primary care physician or another doctor is recommended, it is important for you to keep the appointment. Call your primary care physician or return to the Emergency Department immediately if your condition worsens, fails to improve, or new symptoms develop. If you need to find a doctor, you can call [facility] for a referral at [phone] or toll free at [phone] or log in to [email or web address].. ?? You can view and manage your care through the patient portal or by using a health care singh of your choosing. [employer] is a website that allows you to securely view your medical information including your hospital discharge summary, office visit summaries, medications and follow-up visits. You can also request appointments, renew medications, and request access to your medical information using a health care singh of your choosing, or just ask a question. You can enroll at [email or web address] or register during your next office visit. You have been discharged from [facility], Patient Care Unit: [facility]. If you have any questions regarding these instructions after you leave, please call us and we will be happy to assist you. [facility] Your Care Team Attending Physician Julio ABRAHAM, Ned Anders Discharging Providers Darryl Funk DO Reason for Admission Chronic hypertension Your Diagnosis Health maintenance examination growth restriction antepartum Chronic hypertension Low-lying placenta Headache HTN in , chronic Tests Performed Below is a partial list of the tests performed during your hospitalization. You may have had other tests and procedures not included in this list. Please discuss all test results with your provider. ALT AST CBC Creatinine Protein/Creatinine Ratio Urine Primary Care Provider Not on Staff, PCP Advance Directive Health Care Proxy on File No Patient refuses to discuss Discharge Vitals Temperature: 98.1 DegF Height: 155 cm Pulse Rate:??117 bpm??High Weight: 86.2 kg Respiratory Rate: 17 br/min Body Mass Index:??35.88 kg/m2??Critical Systolic Blood Pressure:??144 mm Hg??High Body surface area: 1.93 Diastolic Blood Pressure:??87 mm Hg??High ?? Oxygen Saturation: 99 % ?? Studies Pending All tests and labs ordered during this hospital stay have been completed unless listed below. Please discuss all pending results with your provider listed above in these instructions. ?? COVID-19 (2019 Novel Coronavirus) PCR Group B Strep by PCR What to do next Instructions From Your Doctor Discharge: home, Call your the office with any concerns including:?? Heavy vaginal bleeding?? Fever of 100.4 or greater Foul-smelling vaginal discharge Difficulty or burning with urination?? Nausea and vomiting with inability to tolerate food,?? Shortness of breath or chest pain. Swelling of the extremities. Headache, vision changes, right upper quadrant pain ?? Discharge Orders Scheduled Follow-Up Appointments Monday 9:20 AM EDT ?? Where: [facility] - Field Service Technician [address] [place] [id number]- Monday 9:20 AM EDT ?? Where: [facility] - Field Service Technician [address] [place] [id number]- Monday 9:20 AM EDT ?? Where: [facility] - Field Service Technician [address] [place] [address] - Monday 9:20 AM EDT ?? Where: [facility] Field Service Technician [address] [place] [address] - Monday. 2022 9:20 AM EDT ?? Where: [address] - Monday 9:20 AM EDT ?? Where: [facility] Field Service Technician [address] [place] [address] - Monday 8:20 AM EDT ?? Where: [address] - Discharge Medications VANDANA THOMAS :1995 Visit Date:02/21/2023 Medications: Please continue your medications until treatment is completed or stopped by your provider. Medications not listed below should be discontinued. Discuss any questions related to medications with your provider. What How Much When Why Instructions Next Dose New DiphenhydrAMINE (Benadryl 25 mg oral tablet) 1 tab(s) Oral 3 times a day as needed for as needed for motion sickness Printed Prescription New Metoclopramide (Reglan 10 mg oral tablet) 1 tab(s) Oral 4 times a day Duration: 10 Days Pickup at [facility] Unchanged Aspirin (Aspirin Low Dose 81 mg oral delayed release tablet) 2 tab(s) Oral Daily Unchanged NIFEdipine (NIFEdipine 90 mg oral tablet, extended release) 1 tab(s) Oral Daily HTN in , chronic Pharmacy Information [facility]: [address] [place] [address] [phone] Test Results Below is a partial list of the most recent Laboratory test results done prior to this discharge. You may have had other tests and procedures not included in this list. Please discuss all test resultswith your provider. ALT (02/21/2023) ???ALT (SGPT) - 7 units/L AST (02/21/2023) ???AST (SGOT) - 11 units/L CBC (02/21/2023) ???WBC - 10.1 k/mm3???RBC - 4.00 m/mm3???Hgb - 11.8 Gm/dL???Hct - 33.8 %???MCV - 84.5 femtoliters???MCH - 29.5 pg???MCHC - 34.9 g/dL???Platelet Count - 255 k/mm3???RDW-SD - 40.3 femtoliters???MPV - 9.7 femtoliters???Nucleated RBC (Automated) - 0.0 #/100 WBC'S???Abs. NRBC - 0.0 k/mm3 Creatinine (02/21/2023) ???Creatinine-Blood - 0.9 mg/dL???Estimated GFR Creatinine - 93 ML/MIN/1.73 M2 Protein/Creatinine Ratio Urine (02/21/2023) ???Protein, Total Urine Random - 18 mg/dL???TP/Cr Ratio - 0.09???Creatinine, Urine - 195.4 mg/dL Allergies (NKA means No Known Allergies) morphine??(rash) Problems Active Problems??(12) Chronic hypertension?? Depression?? growth restriction antepartum?? HIstory of GERD (gastroesophageal reflux disease)?? History of delivery?? History of severe pre-eclampsia?? Hx of migraines?? Low-lying placenta?? Obesity during ? Severe obesity (BMI 35.0-39.9) with comorbidity?? Education Materials Below is the list of Educational Leaflet Providered with your Discharge Instructions. and Childbirth: Growth Restriction?? Gestational Hypertension?? Valuables and Belongings I fully understand and agree that [facility] accepts no responsibility for all my personal property including clothing, toilet articles, radios, jewelry, dentures, hearing aids, rings, money, or any other property that is in my possession or is brought to me after admission. I understand certain valuables may be placed in a hospital safe for a short period of time. I understand that the hospital is not liable for loss or damage due to accident, fire, or other natural occurrence while said property is in the safe. I accept full responsibility for any personal property that I keep with me, and will not hold the hospital responsible in case of loss or disappearance. I acknowledge that i have been encouraged to send valuables and belongings home. ?? Review of Valuable and Belonging List: With patient Date for Pt to Sign Valuables/Belongings: 02/21/23 16:56:00 ?? Other Discharge Information ? Pulmonary Rehab Status?? Pulmonary Rehab Discharge Status?? Respiratory Rate: 17 br/min ? Common Emergency Awareness Tips IS IT A STROKE? Act FAST and Check for these signs: FACE Does the face look uneven? ARM Does one arm drift down? SPEECH Does their speech sound strange? TIME Call at any sign of stroke ?? Heart Attack Signs Chest discomfort: Most heart attacks involve discomfort in the center of the chest and lasts more than a few minutes, or goes away and comes back. It can feel like uncomfortable pressure, squeezing, fullness or pain. Discomfort in upper body: Symptoms can include pain or discomfort in one or both arms, back, neck, jaw or stomach. Shortness of breath: With or without discomfort. Other signs: Breaking out in a cold sweat, nausea, or lightheaded. Remember, MINUTES DO MATTER. If you experience any of these heart attack warning signs, call to get immediate medical attention! ?? Smoking can increase your chances of developing chronic health problems and can cause harmful effects to other family members in your house. If you smoke, you are strongly encouraged to quit. Please call [facility] Link at [phone] or [phone] ([phone]) or log in to [email or web address] for referrals to smoking cessation programs. ?? The National Suicide Prevention Hotline is available 19/06 if you or someone you know needs to find a reason to keep living. By calling 8-719-749-[employer] (2160) you'll be connected to a skilled, trained counselor at a crisis center in your area. INPATIENT DISCHARGE INSTRUCTIONS SIGNATURE VANDANA GOODSON Location:[facility] Registration Date and Time:02/21/2023 15:53 EDT Primary Care Physician: Not on Staff, PCP VANDANA ENCINAS, have received the above patient education materials/instructions and have verbalized understanding. If ambulance or transport services are being used I further acknowledge being given a choice of service. ?? If you need to contact me, please call me at this number: . Patient/Payroll Benefits Administrator Name: Patient/Payroll Benefits Administrator Signature: Relationship to Patient: Witness Name/Signature: Date: * Nichelle Villegas RN: PERFORM Event Display: Patient Education Leaflets Authored Date: [id number] and Childbirth: Growth Restriction ?? [id number] and Childbirth: Growth Restriction With growth restriction, an unborn baby is smaller than normal. This means the baby is not growing at a normal rate. Causes of growth restriction growth restriction??happens when a baby doesn't get enough oxygen and nutrition in the uterus. It's also called intrauterine growth restriction. Possible causes are certain health problems in the mother such as: ??? High blood pressure ??? Heart disease ??? Kidney disease Other possible causes??include the baby having: ??? A genetic disorder ??? An infection This condition??is much more likely if the mother: ??? Smokes ??? Drinks ??? Abuses drugs ??? Is with more than 1 baby ?? Diagnosing growth restriction Your healthcare provider may use ultrasound exams to check your baby's growth. During routine visits, you and your baby are closely watched. This is done with ultrasound tests. The height of your uterus (fundal height) is also measured. A baby with growth restriction willhave smaller ultrasound and fundal height measurements. Doppler ultrasound is used to measure how well the placenta is working.??You may have a test (amniocentesis) to look for a genetic problem or infection. It tests a fluid sample taken from around the baby (amniotic fluid). ?? Treating growth restriction The growth of a baby with?? growth restriction??will continue to be closely watched. Any treatment depends on the cause. If the mother smokes, drinks, or uses drugs, stopping is vital. In other cases, treatments may include: ??? Bed rest. This helps increase blood flow to the placenta. ??? Self-care. Eat a healthy, well-balanced diet with a calorie intake that is??advised for a woman. Keep all your visits with your healthcare provider. ??? Medicines. These treat health problems such as high blood pressure. ??? Early delivery. This may be needed if the baby???s health is in danger. Talk with your healthcare provider about the best treatment for you and your baby. ?? Long-term concerns A baby diagnosed with?? growth restriction??may have health problems after . These include trouble fighting infections or keeping a normal body temperature. With treatment and close follow-up, babies may catch up in growth. In some cases, babies have long-term health problems. Your healthcare provider can tell you more. ?? Last Reviewed Date: 2022 ?? [employer]. All rights reserved. This information is not intended as a substitute for professional medical care. Always follow your healthcare professional's instructions. ?? * Nelly CHAVES, Nichelle Reddy: PERFORM Event Display: Patient Education Leaflets Authored Date: [id number] Gestational Hypertension ?? [id number] Gestational Hypertension What is gestational hypertension? Gestational hypertension??is high blood pressure in .??It occurs in about 3 in 50 pregnancies.?? This condition is different from chronic hypertension. Chronic hypertension happens when a person has high blood pressure before they get . It???s also different from preeclampsia and eclampsia. These are other blood pressure problems in . ?? Gestational hypertension often starts??in the second half of . It normally goes away afteryour baby is born.? What causes gestational hypertension? Healthcare providers don't know what causes this condition. The following things may increase your risk: ??? Having??high blood pressure before or with a past ??? Having kidney disease ??? Having diabetes ??? Being??younger than 20 years of age or older than 40??years of age ???Being with multiples, such as twins or triplets ??? Being ?? What are the symptoms of gestational hypertension? Symptoms can occur a bit differently in each . The main symptom is high blood pressure in the second half of . High blood pressure in can lead to other serious issues. These can include preeclampsia. You should watch for signs of high blood pressure, but some people don't have any symptoms. They caninclude: ??? Headache that doesn???t go away ??? Edema (swelling) ??? Sudden weight gain ??? Visionchanges, such as blurred or double vision ??? Nausea or vomiting ??? Pain in the upper right side of your belly, or pain around your stomach ??? Making small amounts of urine ?? How is gestational hypertension diagnosed? If your blood pressure increases, your healthcare provider may diagnose you with this condition. You may also have the following tests to check for this issue: ??? Blood pressure readings ??? Urine testing??to check for protein, which is a sign that your kidneys aren???t working well ??? Checking for??swelling ??? Checking your weight more often ??? Liver and kidney function tests ??? Blood clotting tests ?? How is gestational hypertension treated? Blood pressure monitoring Your healthcare provider may check your blood pressure more often. You should also tell your healthcare provider if you have any new symptoms. ?? monitoring Your healthcare provider may do tests to check the health of your baby. These tests may include: ??? movement counting. You???ll keep track of your baby???s kicks and movements. A change in thenumber of kicks or how often your baby kicks may mean your baby is under stress. ??? Nonstress testing.??This test measures your baby???s heart rate in response to its movements. ??? Biophysical profile.??This test combines??a??nonstress test with an ultrasound to watch your baby. ??? Doppler flow studies.??This test is a??type of ultrasound that uses sound waves to measure the flow of your baby???s blood through a blood vessel. ?? Lab testing Your healthcare provider may test your urine and blood at every checkup. This testing willtell if your condition is getting worse. ?? Medicine Your healthcare provider may give you corticosteroids. These medicines can help your baby???s lungsmature. You???ll get these medicines if it looks like your baby is going to be born early. ? What are possible complications of gestational hypertension? High blood pressure can affect your blood vessels. It may decrease??blood flow in your liver, kidneys, brain, uterus, and placenta.?? This condition can get worse. It can lead to??preeclampsia and eclampsia. These are serious blood pressure problems.??These issues can cause the following problems: ??? Placental abruption, when the placenta pulls away from the uterus too early ??? Poor growth (intrauterine growth restriction) ??? Stillbirth ??? Seizures (eclampsia) ??? of the motherand baby Because of these risks, your healthcare provider may decide that you need to have your baby early. This may happen before 37 weeks of . Even if your blood pressure goes back to normal after childbirth, you have a higher chance of having high blood pressure in the future. ?? Can gestational hypertension be prevented? Having this issue diagnosed and treated early may help reduce your risk for complications. That's why it???s important to go to your checkups. Doing so may keep your condition from getting worse. ?? When should I call my healthcare provider? Call your healthcare provider right away if you have signs of high blood pressure. Symptoms can include a headache that doesn???t go away, blurred or double vision, swelling,??or making less urine than normal.? Carrasco points about gestational hypertension ??? Gestational hypertension??is a form of high blood pressure in . It??occurs in about 3 in 50 pregnancies. ??? This condition can affect the health of both the parent and the baby, depending on how severe the issue is. ??? Call your healthcare provider right away if you have signs of high blood pressure. Symptoms can include a headache that doesn???t go away, blurred or double vision, swelling,??or making less urine than normal. ? The goal of treatment is to prevent the condition from getting worse and causing other problems. ?? Next steps Tips to help you get the most from a visit to your healthcare provider: ??? Know the reason for your visit and what you want to happen. ??? Before your visit, write down questions you want answered. ??? Bring someone with you to help you ask questions and remember what your provider tells you. ??? At the visit, write down the name of a new diagnosis and any new medicines, treatments, or tests. Also write down any new instructions your provider gives you. ??? Know why a new medicine or treatmentis prescribed and how it will help you. Also know what the side effects are. ??? Ask if your condition can be treated in other ways. ??? Know why a test or procedure is recommended and what the results could mean. ??? Know what to expect if you do not take the medicine or have the test or procedure. ??? If you have a follow-up appointment, write down the date, time, and purpose for that visit. ??? Know how you can contact your provider if you have questions. ?? Last Reviewed Date: 2023 ?? [employer]. All rights reserved. This information is not intended as a substitute for professional medical care. Always follow your healthcare professional's instructions. ?? US Unspecified body region * Event Display: PDC Other Ultrasound Authored Date: [id number] OBSTETRICS REPORT PATIENT INFO: CMRN: [id number] BMRN: [id number] : [birth year] (27 yrs)(F) Name: VANDANA THOMAS Visit Date: 02/22/2023 01:31 pm PERFORMED BY: Performed By: Yasmeen Cuellar RDMS Attending: Josh Corey MD Referred By: Ned Kim MD In-PATIENT [facility] INDICATIONS: growth restriction ( FGR / IUGR) (small O36.5 AC) Low-lying placenta O44.40 Chronic HTN O10.91_ History of delivery Z87.51 History of severe pre-eclampsia Z87.59 EVALUATION: Num Of Fetuses: 1 Heart Rate(bpm): 142 Cardiac Activity: Present Presentation: Breech Placenta: Posterior Low-lying Amniotic Fluid GREGOR FV: Within normal limits GREGOR Sum(cm) Largest Pocket(cm) 13.7 5.8 RUQ(cm) RLQ(cm) LUQ(cm) LLQ(cm) 1.1 4.7 2.1 5.8 Comment: Active movements seen. BIOMETRY: GESTATIONAL AGE: LMP: 30w 0d Date: 07/27/22 JAY JAY: 05/03/23 Best: 30w 0d Det. By: LMP (07/27/22) JAY JAY: 05/03/23 DOPPLER - VESSELS: Umbilical Artery S/D %tile PI %tile ADFV RDFV 3.9 92 1.2 89 No No CERVIX UTERUS ADNEXA: Cervix Length: 5.3 cm. Appears closed Comment Vaginal scanning was done. COMMENTS: The amniotic fluid volume is normal. The cervical length is normal. Placenta is posterior low lying. Josh Corey MD Electronically Signed Final Report 02/22/2023 01:57 pm * Event Display: PDC Other Ultrasound Authored Date: [id number] Please click on pdf link to open report Patient Care team information Care Team Personnel Name: Not on Staff, PCP Position: S Physician (General Medicine) Member Role: PCP Care Team Related Persons Name: MARTELARIC MENDOZA Address: home [address] [place] [address] Name: MARISA THOMPSON Address: [facility] [address] Address: home [address] [place] [address] Name: PT STATES, NO ONE
--- OUTSIDE RECORDS SUMMARY | 2024-05-03 10:19 | XMS_ITS | Continuity of Care Document ---
Author Organization [facility] Address [address] [place] [id number]- Care Team Providers Care Tile Shader Name Role Phone Desire Mejia DO Primary Care Physician Encounter [facility] Date(s): 07/30/19 - 11/27/[address] [address]- [facility] Attending Physician: Not on Staff, Attending [...]
--- OUTSIDE RECORDS SUMMARY | 2024-05-03 10:19 | XMS_ITS | Continuity of Care Document ---
Author Organization [facility] Josesito lyle [facility] Address [address], [address] [place] [address]- Care Team Providers Care Senior [email or web address] Developer Name Role Phone Not on Staff, PCP Primary Care Physician Unavail able [place] [facility] [place] [facility] [address], [address] [place] [address]- Allergies, Adverse Reactions, Alerts Substance Reaction Severity [...] tablet, 6 Refills, Maintenance, 12/16/22 14:51:00 EST, [facility], 152.4, cm, 11/18/22 10:14:00 EST, Height [...] 02/15/23 14:41:00 EDT, Route to Pharmacy Electronically, [facility], Partial fill upon patient request if [...] Personnel Name: Not on Staff, PCP Position: [facility] Physician (General Medicine) Member Role: PCP Care Team Related Persons Name: ARIC MARTEL Address: home [address] [place] [address] Name: MARISA THOMPSON Address: [id number] Address: home [address] [place] [address] Name: STATES, NO ONE
--- OUTSIDE RECORDS SUMMARY | 2024-05-03 10:19 | XMS_ITS | Continuity of Care Document ---
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 Role Phone Not on Staff, PCP Primary Care Physician Unavail able Encounter [facility] [place] Date(s): 03/03/23 - 03/03/[address] [address] Discharge Disposition: A-D/C Home Attending Physician: Elisha Sun MD Admitting Physician: Elisha Sun MD Referring Physician: lEisha Sun MD Allergies, Adverse Reactions, Alerts Substance Reaction [...] tablet, 6 Refills, Maintenance, 12/16/22 14:51:00 EST, [facility], 152.4, cm, 11/18/22 10:14:00 EST, [...] 02/15/23 14:41:00 EDT, Route to Pharmacy Electronically, [facility], Partial fill upon patient request if the prescription is for a schedule II... Start Date: 02/15/23 Status: Ordered Reglan 10 mg oral tablet 1 tablet = 10 mg, By Mouth, 4 times a day, for 10 days, # 40 tablet, 0 Refills, Acute 03/04/23 10:25:00 EDT, 02/22/23 10:25:00 EDT, Tablet, [facility], Partial fill upon patient request [...] Personnel Name: Not on Staff, PCP Position: [facility] Physician (General Medicine) Member Role: PCP Name: Analia Garcia RN Position: [facility] OB RN Member Role: Patient Care Provider Care Team Related Persons Name: MARTEL ARIC Address: home [address] [place] [address] Name: MARISA THOMPSON Address: [address] Address: home [address] [place] [address] [place] Name: PT STATES, NO ONE
--- OUTSIDE RECORDS SUMMARY | 2024-05-03 10:19 | XMS_ITS | Continuity of Care Document ---
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 Patient should only receive a total of 650mg of Acetaminophen every 4 hours., # 50 tablet, Refills 0, Tot. Refills 0... Start Date: 04/01/23 Status: Ordered Aspirin Low Dose 81 mg oral delayed release tablet 2 tablet, By Mouth, Daily, # 60 tablet, 6 Refills, Maintenance, 12/16/22 14:51:00 EST, [facility], 152.4, cm, 11/18/22 10:14:00 EST, [...] 04/01/23 9:36:00 EDT, Route to Pharmacy Electronically, [facility] #[id number], Partial fill upon patient request if the prescription is for a schedule II opioid drug... Start Date: 04/01/23 Status: Ordered ferrous sulfate 325 mg oral enteric coated tablet 325 mg, 1, tablet, By Mouth, Daily, # 90 tablet, Refills 1, Tot. Refills 1, Maintenance, 04/01/23 18:33:00 EDT, Route to Pharmacy Electronically, [facility]/pharmacy #[id number], Partial fill upon patient requestif the [...] 04/01/23 9:36:00 EDT, Route to Pharmacy Electronically, [facility]/pharmacy #[id number], Partial fill upon patient request if [...] Persons Name: MARTELARIC MENDOZA Address: home [address] [place] [address] Name: MARISA THOMPSON Address: [address] Address: home [address] [place] [address] [place] Name: SAM THOMPSON Address: home [address] [place] [address] Name: EDUIN THOMPSON Address: [address] Address: home [address] [address] [place] Name: STATES, NO ONE
--- OUTSIDE RECORDS SUMMARY | 2024-05-03 10:19 | XMS_ITS | Continuity of Care Document ---
Author Organization [facility] ter Address [address] [place] [id number]- Care Team Providers Care Batter Out Name Role Phone Not on Staff, PCP Primary Care Physician Unavail able [place] [facility] [place] 03/28/23 - 04/03/[address] [address]- Discharge Disposition: A-D/C Home Attending Physician: Alyssa Evans MD Admitting Physician: Alyssa Evans MD Referring Physician: Alyssa Evans MD Allergies, Adverse Reactions, Alerts Substance Reaction [...] give 325mg per patient preference and re-dose [id number] within 4 hours, if needed. Patient should only receive a total of 650mg of Acetaminophen every 4 hours., # 50 tablet, Refills 0, Tot. Refills 0... Start Date: 04/01/23 Status: Ordered Acetaminophen Tablet 650 mg, Tablet, By Mouth, Every 4 hours, PRN for Pain , Mild, (1-3), may give 325mg per patient preference and re-dose with 325mg within 4 hours, if needed. Patient should only receive a total of 650mg of Acetaminophen every 4 hours., Routine, 03/30... Start Date: 03/30/23 Stop Date: 04/03/23 Status: Discontinued Aspirin Low Dose 81 mg oral delayed release tablet 2 tablet, By Mouth, Daily, # 60 tablet, 6 Refills, Maintenance, 12/16/22 14:51:00 EST, [facility], 152.4, cm, 11/18/22 10:14:00 EST, [...] 04/01/23 9:36:00 EDT, Route to Pharmacy Electronically, [facility]/pharmacy #[id number], Partial fill upon patient request if the prescription is for a schedule II opioid drug... Start Date: 04/01/23 Status: Ordered ferrous sulfate 325 mg oral enteric coated tablet 325 mg, 1, tablet, By Mouth, Daily, # 90 tablet, Refills 1, Tot. Refills 1, Maintenance, 04/01/23 18:33:00 EDT, Route to Pharmacy Electronically, [facility]/pharmacy #[id number], Partial fill upon patient requestif the [...] Tot. Ref... Start Date: 04/01/23 Status: Ordered Ibuprofen Tablet 800 mg, Tablet, By Mouth, Every 8 hours, PRN for Pain , Moderate, (4-6), may give 400mg per patientpreference and re-dose with 400mg within 8 hours if needed. Patient should only receive a total of 800mg of Ibuprofen every 8 hours., Routine, ... Start Date: 03/30/23 Stop Date: 04/03/23 Status: Discontinued labetalol 200 mg oral tablet 200 mg, Tablet, By Mouth, 03/30/23 2:00:00 EDT Start Date: 03/30/23 Stop Date: 03/30/23 Status: Completed labetalol 200 mg oral tablet 200 mg, Tablet, By Mouth, 03/30/23 14:00:00 EDT Start Date: 03/30/23 Stop Date: 03/30/23 Status: Completed NIFEdipine 90 mg oral tablet, extended release 90 mg, 1, tablet, By Mouth, Daily, # 30 tablet, Refills 0, Tot. Refills 0, Maintenance, 04/01/23 9:36:00 EDT, Route to Pharmacy Electronically, [facility]/pharmacy #[id number], Partial fill upon patient request if the [...] oldest [Reference Range]: 1 2 3 Height 152.5 cm (04/02/23 12:00 AM) 152.5 cm (04/01/23 12:00 AM) 152.5 cm (03/31/23 7:52 AM) Weight 83.6 kg (04/02/23 8:06 AM) 86 kg (03/31/23 8:51 AM) 90 kg (03/29/23 9:07 AM) Oxygen Saturation [94-100 %] 96 % (04/03/23 8:00 AM) 100 % (04/02/23 7:59 AM) 98 % (04/01/23 10:03 PM) Pulse Rate [55-90 bpm] 86 bpm (03/31/23 7:52 AM) 103 bpm *H* (03/30/23 1:45 PM) 113 bpm *H* (03/30/23 1:52 AM) Body Mass Index [18.5-24.99 kg/m2] 37.84 kg/m2 *>HHI* (03/28/23 8:08 PM) Blood Pressure [90-138/55-84 mm Hg] 142/90mm Hg *H* (04/03/23 8:00 AM) 143/96mm Hg *H* (04/03/23 5:04 AM) 145/93mm Hg *H* (04/03/23 3:36 AM) Respiratory Rate [16-30 br/min] 16 br/min (04/03/23 8:00 AM) 16 br/min (03/31/23 9:47 AM) 16 br/min (03/31/23 9:47 AM) Temperature [96.8-100.4 DegF] 97.7 DegF (04/03/23 8:00 AM) 98.5 DegF (04/02/23 9:31 PM) 98.4 DegF (04/02/23 7:59 AM) Mode of Delivery (Oxygen) Room air (04/03/23 8:00 AM) Room air (04/02/23 7:59 AM) Room air (04/01/23 10:03 PM) Blood pressure sites Arm, left (04/01/23 10:03 PM) Arm, left (03/30/23 7:00 AM) Arm, left (03/29/23 3:00 PM) Temperature Route Oral (04/03/23 8:00 AM) Oral (04/02/23 9:31 PM) Oral (04/02/23 7:59 AM) Dry Weight 90 kg (03/29/23 9:07 AM) 88.0 kg (03/28/23 8:08 PM) Weight Obtained Via Standing scale (04/02/23 8:06 AM) Dry Weight Obtained Via Standing scale (03/29/23 9:07 AM) Social History Social History Type Response Smoking Status Never (less than 100 in lifetime) entered on: 09/19/22 Sex History and physical note * Joann Ordaz DO: PERFORM Event Display: History and Physical Hospital Authored Date: Patient: ??VANDANA THOMAS ? Age:??27 Years?Sex:??Female?:??1995?? OB Reason for Admission OB Reason for Admission Reason for admission: Other: Headache, BP monitoring LMP/EGA/JAY JAY Gestational Age (EGA) and JAY JAY? * Note: EGA calculated as of 03/28/2023 ?? JAY JAY:??05/03/2023?EGA*:??34 weeks 6 days ? History?(3,1,2,4)?Method:??Last Menstrual Period??(07/27/2022) History of Present Illness Patient is a 27 year old @ 34+6 weeks gestation admitted in the setting of intractable headache. She has history of cHTN on Nifedipine. She states headache has been going on since last , pain usually goes away with PO??reglan/benadryl however this is no longer helping.??Patient endorses a history of??migraines, which feels different from current presentation.??Headache is located in her forehead and radiates posterior over her occiput, feels like a cap over her head. Denies??chest pain,??SOB, vision changes, RUQ pain, and LE edema.??Denies vaginal bleeding, LOF, contractions or decreased movement. ?? 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 Additionally, she has had nasal congestion since earlier this morning, denies sore throat, other URI symptoms, or sick contacts. Review of Systems All systems reviewed and negative except as noted above in HPI. Physical Exam Vitals & Measurements T:??97.9?F ?? MO:??105?? RR:??16?? BP:??143/88?? SpO2:??98%?? HT:??152.5??cm?? WT:??88.0??kg?? BMI:??37.84?? Constitutional:??Normal affect, no acute distress, well-developed. Pulmonary:??Clear to auscultation, equal bilaterally, no rales, crackles, wheezing,??or rhonchi.? Cardiovascular:??Regular rate and rhythm, no murmurs.? Abdomen/GI:??Soft, non-tender, and non-distended, no guarding, no rebound tenderness.?? Extremities:??No clubbing, cyanosis or edema present.?? Skin:??No rash or jaundice. Normal for ethnicity. Neurological/Psychiatric:??Appearance appropriate, mood and affect stable. Assessment/Plan Assessment:??Patient is a 27 year old @ 34+6 weeks gestation admitted for intractable headache in the setting of cHTN on Nifedipine 90. Her BP is currently mild range and she has no other symptoms of pre-e other than the headache. For her headache, will trial IV reglan/Benadryl and 2g IV mag bolus. Difficult to say at this time if this headache is related to pre-e as her labs are normal and BPs overall well controlled, and she does have a history of chronic migraines/generalized headaches.??Will continue to monitor BPs overnight and if they become higher than her baseline and headacheis??unresolved, will consider moving??forward??with delivery in the setting of severe??pre-eclampsia picture. ? In regards to her nasal congestion as possible cause of headache, negative COVID in [facility]. Already known to be GBS positive. Will consult NICU if??delivery is planned. ? Chronic hypertension (I10):?- Current antihypertensive agents: Nifedipine 90 daily ??- HELLP labs wnl ??- BPs q2/q4 ??- If unresolved headache - meets criteria for PreE with severe features and magnesium prophylaxiswith delivery will be indicated ? Headache (R51.9):?- s/p reglan/Benadryl PO in [facility] --> IV ordered now ??-??Tylenol PRN ??-??2g IV mag bolus ?? growth restriction antepartum (O36.5990):?- EFW 8%ile ??- UA Doppler??today wnl? History of severe pre-eclampsia (Z87.59):? Hx of migraines (Z86.69): ?At NOB: Reports migraines with aura two times per week ??Self-resolving, able to manage at home ? Low-lying placenta (O44.40): ??-??16mm from internal os on 03/21, appropriate for vaginal delivery ??- consider repeat scan in AM ?? Patient discussed with Dr. Montes. ? OB History History?(3,1,2,4)? # 1 ?Baby 1 ?Outcome Date:??2008 ?Outcome or Result:??Spontaneous ?Gest Age:??4 weeks ? Outcome:? Sex:??-- ?? # 2 ?Baby 1 ?Outcome Date:??08/05/2010?Outcome or Result:??Vaginal ?Gest Age:??37 weeks ? Outcome:??Live ? Sex:??Female?Wt:?2608 g ?Maternal Complications:??Pre-eclampsia ?Anesthesia Type:??Epidural ?Hospital:??[facility] ?Comment:??Induction of labor for labile blood pressure in the third trimester ?? # 3 ?Baby 1 ?Outcome Date:??08/29/2011?Outcome or Result:??Vaginal ?Gest Age:??41 weeks ? Outcome:??Live ? Sex:??Male ?Anesthesia Type:??Epidural ?Hospital:??[facility] ?Comment:??Induction of labor for postdates. ??No preeclampsia ?? # 4 ?Baby 1 ?Outcome Date:??02/02/2017?Outcome or Result:??Vaginal ?Gest Age:??35 weeks 5 days ? Outcome:??Live ? Sex:??Female?Wt:?2126 g ?Maternal Complications:??Pre-eclampsia ?Anesthesia Type:??Epidural ?Hospital:??[facility] ?Comment:??Induction of labor for preeclampsia ?? # 5 ?Baby 1 ?Outcome Date:??10/01/2019?Outcome or Result:??Vaginal ?Gest Age:??37 weeks 2 days ? Outcome:??Live ? Sex:??Male?Wt:?2760 g ? Complications:??None ?Hospital:??[facility] ?? # 6 ?Baby 1 ?Outcome Date:??2020 ?Outcome or Result:??Spontaneous ?Gest Age:??-- ? Outcome:? Sex:??-- Labs Labs Labs & Tests Antibody Screen: Negative (09/21/22) Chlamydia Trachomatis Amplified Probe: NEGATIVE (10/21/22) Creatinine-Blood: 0.5 mg/dL (03/28/23) Down Syndrome Age Risk FTS: Age Risk: (10/11/22) Down Syndrome Scrn Risk FTS: Screening Risk: (10/11/22) Glucose 50 Gm, +60 Minutes: 104 mg/dL (02/13/23) Hct: 36.7 % (03/28/23) Hepatitis B Surface Antigen: NEGATIVE (09/21/22) Hepatitis C Ab: NEGATIVE (09/21/22) Hgb: 12.3 Gm/dL (03/28/23) HIV 4th Generation Ab-Ag Result: NEGATIVE (09/21/22) RPR Titer Result: NOT INDICATED (02/13/23) Rubella IgG Ab: POSITIVE (09/21/22) Syphilis Screen by HELENE: NEGATIVE (02/13/23) Trisomy 18 Scrn Risk FTS: Screening Risk: (10/11/22) Urine Culture: Urine Culture (09/21/22) Transcribed Labs Covid 19 Transcribed Result: Negative (03/28/23) Covid 19 Transcribed Result Spec Type: Nose (03/28/23) Problem List Active Active Problem List Chronic [...] Medications Aspirin: 2 tablet, By Mouth, Daily DiphenhydrAMINE: 25 mg = 1 tablet, By Mouth, 3 times a day, PRN (as needed for motion sickness) Famotidine: 20 mg = 1 tablet, By Mouth, 2 times a day Metoclopramide: 5 mg = 1 tablet, By Mouth, 4 times a day NIFEdipine: 90 mg = 1 tablet, By [...] Hypertension Father: Hypertension Plan No Data Found * Simon ABRAHAM, Concepcion Gasca: PERFORM Event Display: History and Physical Hospital Authored Date: Attending Attestation:?? I have seen and evaluated this patient.?? I have discussed the case and management with the resident/team??and agree with the findings and plan of care as documented in the resident note. /Chago Montes MD Hospital Progress note * Fiorella Siddiqi RN: PERFORM, SIGN, VERIFY Event Display: Progress Note Hospital Authored Date: [id number] Patient: VANDANA THOMAS Age: 27 years Sex: Female : 1995 Associated Diagnoses: None Author: Fiorella Siddiqi RN Discharge Information Case Management Discharge Plan : Case Management Discharge Plan Data 03/28/2023 17:19 EDT Discharge Level of Care at Discharge Home/Snf/Foster Care Pt out of bed ad maximo ambulating in room frequently. Taking in food and fluids well without nausea. Pt voiding without difficulty, farooq care reviewed. Patient states pain is well controlled on currentmedication regime. Mild rubra flow with no clots noted. [place] in [facility]. Call glover within reach. * Joann Ordaz DO: PERFORM, MODIFY Event Display: Progress Note Hospital Authored Date: [id number] Patient: ??VANDANA THOMAS ? Age:??27 Years?Sex:??Female?:??1995?? LMP/EGA/JAY JAY Gestational Age (EGA) and JAY JAY? * Note: EGA calculated as of 04/02/2023 ?? JAY JAY:??05/03/2023?EGA*:??35 weeks 1 day ? History?(3,1,2,4)?Method:??Last Menstrual Period??(07/27/2022) Subjective Patient is feeling overall well today,??she has been up in [facility] most of the day with her daughter who is doing well.??Lochia is like a light period. Mood is appropriate. She is ambulating, voiding, tolerating PO, no nausea, no vomiting.??Denies headache, vision changes, RUQ pain, SOB. She has had some increased lower extremity edema. Review of Systems All systems reviewed and negative except as noted above in HPI. Physical Exam Vitals & Measurements T:??98.5?F ?? HR:??100(Monitored)?? MO:??86?? RR:??16?? RR:??16?? BP:??149/91?? SpO2:??100%?? HT:??152.5??cm?? WT:??83.6??kg?? BMI:??37.84?? General: The patient is a well-appearing woman, in no acute distress. Lung: clear to auscultation bilaterally. CV: RRR, no murmurs. Abdomen: Soft, nondistended. Fundus firm and below umbilicus. Psychiatric: The patient is alert and oriented with an appropriate mood and affect.?? Extremities:??1+ pitting edema in BL lower extremities. 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 OB Intake and Output Intake and Output Results?? This visit (24 hour periods starting at 07:00 EDT)? 04/02/23 *?? 04/01/23?? 03/31/23?? Total Summary?Intake mL?? --?? --?? 1,800?Output mL?? --?? --?? 2,600?Fluid Balance ?? --?? --?? -800?? Intake (3)?Lactated Ringers Injection 1,000 mL mL?? --?? --?? 100?Magnesium Sulfate 20 Gm mL?? --?? --?? 100?Oral Fluids mL?? --?? --?? 1,600?Total?? --?? --?? 1,800?? Output (1)?Urine Voided mL?? --?? --?? 2,600?Total?? --?? --?? 2,600?? Counts (2)?Oral Fluids mL?? --?? --?? 1,600?Urine Voided mL?? --?? --?? 2,600? * This column has not completed the indicated time period.?? Assessment/Plan Assessment:??Patient is a 27 yo G7 now P5 PPD3 s/p vaginal delivery in the setting of superimposed pre-eclampsia with severe features based on headache. She had an isolated severe range blood pressure??today but has otherwise??been mild range. Encouraged her to come down from [facility]??periodically throughout the day to get??vital signs so we can ensure she is on the??correct PO regimen, patient agrees to this.??She is meeting milestones,??plan to discharge to home in the AM. ? Pre-eclampsia superimposed on chronic hypertension (O11.9): ??- s/p magnesium for seizure prophylaxis ??- Continue Nifedipine 90 ??- BPs q2/q4 ??- Enroll in Babyscripts on discharge ? state (Z39.2): ??- Continue routine care ??- PPBC: undecided, would like to??discuss more at 6w visit ?? History of migraine (Z86.69):?- has not had a headache since prior to delivery ?? Patient seen and discussed with Dr. Abbasi. OB History History?(3,1,2,4)? # 1 ?Baby 1 ?Outcome Date:??2008 ?Outcome or Result:??Spontaneous ?Gest Age:??4 weeks ? Outcome:? Sex:??-- ?? # 2 ?Baby 1 ?Outcome Date:??08/05/2010?Outcome or Result:??Vaginal ?Gest Age:??37 weeks ? Outcome:??Live ? Sex:??Female?Wt:?2608 g ?Maternal Complications:??Pre-eclampsia ?Anesthesia Type:??Epidural ?Hospital:??[facility] ?Comment:??Induction of labor for labile blood pressure in the third trimester ?? # 3 ?Baby 1 ?Outcome Date:??08/29/2011?Outcome or Result:??Vaginal ?Gest Age:??41 weeks ? Outcome:??Live ? Sex:??Male ?Anesthesia Type:??Epidural ?Hospital:??[facility] ?Comment:??Induction of labor for postdates. ??No preeclampsia ?? # 4 ?Baby 1 ?Outcome Date:??02/02/2017?Outcome or Result:??Vaginal ?Gest Age:??35 weeks 5 days ? Outcome:??Live ? Sex:??Female?Wt:?2126 g ?Maternal Complications:??Pre-eclampsia ?Anesthesia Type:??Epidural ?Hospital:??[facility] ?Comment:??Induction of labor for preeclampsia ?? [...] (BMI 35.0-39.9) with comorbidity: (Medical) Medications Medications (8) Active SCHEDULED: (2) Famotidine 20 mg Tablet (famotidine 20 mg oral tablet) ??20 mg, By Mouth, 2 times a day NIFEdipine 30 mg ER Tablet (NIFEdipine 30 mg oral tablet, extended release) ??90 mg, By Mouth, Daily CONTINUOUS: (2) Lactated Ringers (1000 mL) Cont IV 1,000 mL (Lactated Ringers 1,000 mL) ??1,000 mL, IV Infusion, 50mL/hr Magnesium Sulfate 20 Gm in 500 mL sterile water (Premix) 20 Gm (Magnesium Sulfate 20 Gm in 500 mL Premix 20 Gm) ??20 Gm 500 mL, IV Infusion PRN: (4) Acetaminophen 325 mg Tablet (Tylenol 325 mg oral tablet) ??975 mg, By Mouth, Every 6 hours Acetaminophen 325 mg Tablet (Acetaminophen Tablet) ??650 mg, By Mouth, Every 4 hours Docusate Sodium 100 mg Capsule (Docusate Sodium Capsule) ??100 mg 1 capsule, By Mouth, 2 times a day Ibuprofen 800 mg Tablet (Ibuprofen Tablet) ??800 mg, By Mouth, Every 8 hours Allergies morphine??(rash) * Diamond Abbasi MD: PERFORM Event Display: Progress Note Hospital Authored Date: I saw the above patient and reviewed the findings and plan with the resident. Agree with assessmentand plan. Marcus Abbasi MD * Reanna Silva RN: VERIFY, PERFORM, SIGN Event Display: Progress Note Hospital Authored Date: Patient: VANDANA THOMAS Age: 27 years Sex: Female : 1995 Associated Diagnoses: None Author: Ricardo CHAVES, Reanna Findings Pt out of bed ad maximo ambulating in room frequently. Taking in food and fluids well without nausea. Pt voiding without difficulty, farooq care reviewed. Patient states pain is well controlled on currentmedication regime. Mild rubra flow with no clots noted. Pt visiting with infant in [facility], will continue to monitor. Call glover within reach. Discharge Information Case Management Discharge Plan : Case Management Discharge Plan Data 03/28/2023 17:19 EDT Discharge Level of Care at Discharge Home/Snf/Foster Care Note * Sammi Amin RN: PERFORM Event Display: Care Team Progress Note Authored Date: Patient: ??VANDANA THOMAS ? Age:??27 Years?Sex:??Female?:??1995?? Subjective Pt to be discharged today, given Spectra pump for home with book and resources. ?? All questions answered. ?? ANDIE Lovell, IBCLC OB Summary : 7 . Baby A - Weight: 2.119 kg Baby A - Date, Time of : 03/30/23 20:51:00 Baby A - Gender: Female Baby A - Complications: None EGA at Documented Date, Time: 35W 1D Weight at Delivery Baby A - Delivery Type: Vaginal Delivery Complications: None OB History History?(3,1,2,4)? # 1 ?Baby 1 ?Outcome Date:??2008 ?Outcome or Result:??Spontaneous ?Gest Age:??4 weeks ? Outcome:? Sex:??-- ?? # 2 ?Baby 1 ?Outcome Date:??08/05/2010?Outcome or Result:??Vaginal ?Gest Age:??37 weeks ? Outcome:??Live ? Sex:??Female?Wt:?2608 g ?Maternal Complications:??Pre-eclampsia ?Anesthesia Type:??Epidural ?Hospital:??[facility] ?Comment:??Induction of labor for labile blood pressure in the third trimester ?? # 3 ?Baby 1 ?Outcome Date:??08/29/2011?Outcome or Result:??Vaginal ?Gest Age:??41 weeks ? Outcome:??Live ? Sex:??Male ?Anesthesia Type:??Epidural ?Hospital:??[facility] ?Comment:??Induction of labor for postdates. ??No preeclampsia ?? # 4 ?Baby 1 ?Outcome Date:??02/02/2017?Outcome or Result:??Vaginal ?Gest Age:??35 weeks 5 days ? Outcome:??Live ? Sex:??Female?Wt:?2126 g ?Maternal Complications:??Pre-eclampsia ?Anesthesia Type:??Epidural ?Hospital:??[facility] ?Comment:??Induction of labor for preeclampsia ?? # 5 ?Baby 1 ?Outcome Date:??10/01/2019?Outcome or Result:??Vaginal ?Gest Age:??37 weeks 2 days ? Outcome:??Live ? Sex:??Male?Wt:?2760 g ? Complications:??None ?Hospital:??[facility] ?? # 6 ?Baby 1 ?Outcome Date:??202 ?Outcome or Result:??Spontaneous ?Gest Age:??-- ? Outcome:? Sex:??-- Active Problem List Active Problem List Chronic hypertension: (Medical) Depression: (Medical) growth restriction antepartum: (Medical) HIstory of GERD (gastroesophageal reflux disease): (Medical) History of delivery: (Medical) History of severe pre-eclampsia: (Medical) Hx of migraines: (Medical) Low-lying placenta: (Medical) Obesity during : (Medical) : (Obstetric) (07/27/22) : (Medical) Severe obesity (BMI 35.0-39.9) with comorbidity: (Medical) Home Medications Acetaminophen: 650 mg, By Mouth, Every 4 hours, PRN (Pain , Mild), (1-3), may give 325mg per patient preference and re-dose with 325mg within 4 hours, if needed. ?? Patient should only receive a total of 650mg of Acetaminophen every 4 hours. Aspirin: 2 tablet, By Mouth, Daily DiphenhydrAMINE: 25 mg = 1 tablet, By Mouth, 3 times a day, PRN (as needed for motion sickness) Famotidine: 20 mg = 1 tablet, By Mouth, 2 times a day Ferrous Sulfate: 325 mg = 1 tablet, By Mouth, Daily Ferrous Sulfate: 325 mg = 1 tablet, By Mouth, Daily Ibuprofen: 800 mg = 1 tablet, By Mouth, Every 8 hours, PRN (Pain , Moderate), (4-6), may give 400mgper patient preference and re-dose with 400mg within 8 hours if needed. ?? Patient should only receive a total of 800mg of Ibuprofen every 8 hours. Metoclopramide: 5 mg = 1 tablet, By Mouth, 4 times a day NIFEdipine: 90 mg = 1 tablet, By Mouth, Daily Medications Medications (8) Active SCHEDULED: (2) Famotidine 20 mg Tablet (famotidine 20 mg oral tablet) ??20 mg, By Mouth, 2 times a day NIFEdipine 30 mg ER Tablet (NIFEdipine 30 mg oral tablet, extended release) ??90 mg, By Mouth, Daily CONTINUOUS: (2) Lactated Ringers (1000 mL) Cont IV 1,000 mL (Lactated Ringers 1,000 mL) ??1,000 mL, IV Infusion, 50mL/hr Magnesium Sulfate 20 Gm in 500 mL sterile water (Premix) 20 Gm (Magnesium Sulfate 20 Gm in 500 mL Premix 20 Gm) ??20 Gm 500 mL, IV Infusion PRN: (4) Acetaminophen 325 mg Tablet (Tylenol 325 mg oral tablet) ??975 mg, By Mouth, Every 6 hours Acetaminophen 325 mg Tablet (Acetaminophen Tablet) ??650 mg, By Mouth, Every 4 hours Docusate Sodium 100 mg Capsule (Docusate Sodium Capsule) ??100 mg 1 capsule, By Mouth, 2 times a day Ibuprofen 800 mg Tablet (Ibuprofen Tablet) ??800 mg, By Mouth, Every 8 hours * Fiorella Siddiqi RN: PERFORM Event Display: Discharge/Transfer Note Hospital Authored Date: [id number] Nursing Discharge Note Entered On: 04/03/2023 11:07 EDT Performed On: 04/03/2023 11:05 EDT by Fiorella Siddiqi RN Nursing Discharge Note 2 Discharge Time : 04/03/2023 13:44 EDT Fiorella Siddiqi RN - 04/03/2023 13:43 EDT Discharge Level of Care at Discharge : Home/Snf/Foster Care Patient Left Unit Via : Ambulatory Patient Accompanied Off Unit with : Other: Self DC Instructions Provided & Signed by Pt : Yes Patient Understands D/C Instructions : Yes Patient Instructions Discharge Signed : Yes Fiorella Siddiqi RN - 04/03/2023 11:05 EDT Discharge Comments : Pt A/Ox3. VSS. OOB ad maximo. No IV line present. Discharge instructions reviewedwith patient, questions asked and answered. Fiorella Siddiqi RN - 04/03/2023 12:43 EDT Did Pt have Specialty Bed or Wound Vac : No Fiorella Siddiqi RN - 04/03/2023 11:05 EDT * Joann Ordaz DO: PERFORM Event Display: Discharge/Transfer Note Hospital Authored Date: [id number] Patient: ??WILLIAM, VANDANA ? Age:??27 Years?Sex:??Female?:??1995?? Admit Date Admission Date: 03/28/2023 Discharge Date 04/03/2023 OB Reason for Admission OB Reason for Admission Reason for admission: Other: Headache, BP monitoring [facility] Course Vandana is a 27 year old at 34 weeks 6 days presenting with a severe headache in the settingof chronic hypertension on 90mg Nifedipine. She was given IV Reglan/Benadryl as well as 2g IV magnesium bolus however headache persisted. HELLP labs at that time were normal and blood pressures were mild range. Decision was made to proceed with delivery. She was induced and started on magnesium. She had vaginal bleeding during her labor course due to low lying placenta. She had an uncomplicated vaginal delivery and was continued on magnesium for seizure prophylaxis. Her course was uncomplicated and she was discharged home on PPD4 with Babyscripts. Objective/Physical Exam on Day of Discharge Vitals & Measurements T:??97.7?F ?? HR:??94(Monitored)?? MO:??86?? RR:??16?? BP:??142/90?? SpO2:??96%?? HT:??152.5??cm?? WT:??83.6??kg?? BMI:??37.84?? General: The patient is a well-appearing woman, in no acute distress. Lung: clear to auscultation bilaterally. CV: RRR, no murmurs Abdomen: Soft, nondistended, appropriately tender. Fundus firm and below umbilicus. Psychiatric: The patient is alert and oriented with an appropriate mood and affect.?? Extremities: No pitting edema or cellulitis. 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 Assessment/Plan/Discharge Diagnosis Assessment:??Patient is a 27 yo G7 now P5 PPD4 s/p vaginal delivery in the setting of superimposed pre-eclampsia with severe features based on headache. She had an isolated severe range blood pressure??yesterday but has otherwise??been mild range on Nifedipine 90. She is meeting milestone s,??plan to discharge to home??later today with [facility]. ? Pre-eclampsia superimposed on chronic hypertension (O11.9): ??- s/p magnesium for seizure prophylaxis ??- Continue Nifedipine 90, patient has this rx at home and does not??need refill at this time ??- BPs q2/q4 ??-??Babyscripts??ordered ??- BP??check in 3 days ? state (Z39.2): ??- Continue routine care ??- PPBC: declines currently, would like to??discuss more at 6w visit ?History of migraine (Z86.69):?? - has not had a headache since prior to delivery ?? Delivery Summary Delivery Summary Maternal Information ??Labor Information ?Baby A ?Labor Onset Methods: ??Induced ?Induction Methods: ??Amniotomy, Cervical Lutz Inpatient, Misoprostol, Pitocin ??Delivery Information ?Gestational Age at Delivery: ??35W 1D ?Anesthesia OB: ??Epidural ??03/31/23 02:46:58, Epidural ??03/30/23 15:33:35 ?Obstetrical Laceration: ??Perineum intact ?Delivery Complications: ??None ?Blood Loss(ml): ??600 mL ?Blood Loss - Quantitative: ??1 mL ? Baby A ??Delivery Information ?Delivery Type: ??Vaginal ?Date, Time of : ??03/30/23 20:51:00 ? Position: ??Supine ?Foot of bed removed: ??No ?Delayed Cord Clamping: ??No ?Reason for No Delayed Cord Clamping: ??to warmer for NICU evaluationo ?Placenta Delivery Date/Time: ??03/30/23 20:53:00 ?Placenta Delivery Method: ??Assisted ?Placenta Appearance: ??Circumvallate ?Placenta to Pathology: ??Yes ??Care Team ?Attending Provider: ??Hayley Meza MD ?Delivery Physician: ??Orlin FONSECA, Joann Calabrese ?news content specialist #1: ??Madeleine Champion RN ?news content specialist #2: ??Haydee CHAVES, Sammi ?Teletype Installer: ??Megan Whatley DO ?Anesthesiology Attending: ??Domonique Awad MD ?Time NICU Team Called: ??03/30/23 20:49:00 ??Labor Information ?ROM Date, Time: ??03/30/23 10:05:00 ?ROM to Delivery Total Time: ??646 min ?3rd Stage, Length of Labor: ??2 min ? monitoring: ??External monitor ?? Information ? Outcome: ??Live ? Position: ??Occiput anterior ? Weight: ??2.119 kg ? Score 1 minute: ??8 ? Score 5 minute: ??8 ? Score 10 minute: ??9 ?Transferred To: ??CCN, Other: 2 hours of life per late protocol (Modified) ?Umbilical Cord Description: ??3 vessel cord ? Complications: ??None ?Gender: ??Female ? Discharge Medications ???Acetaminophen (acetaminophen 325 mg oral tablet)???Aspirin (Aspirin Low Dose 81 mg oral delayed release tablet)???DiphenhydrAMINE (Benadryl 25 mg oral tablet)???Famotidine (famotidine 20 mg oral tablet)???Ferrous Sulfate (ferrous sulfate 325 mg oral enteric coated tablet)???Ferrous Sulfate (ferrous sulfate 325 mg oral enteric coated tablet)???Ibuprofen (ibuprofen 800 mg oral tablet)???Metoclopramide (Reglan 5 mg oral tablet)???NIFEdipine (NIFEdipine 90 mg oral tablet, extended release) Immunizations during Hospitalization Vaccine Date Status Commentstetanus/diphtheria/pertussis, acel(Tdap) 02/13/2023 Given influenza virus vaccine, inactivated - Not Given Patient Refuses tetanus/diphtheria/pertussis, acel(Tdap) 07/23/2019 Given Feeding Method No Results Patient Education Titles OB PP [facility]- Discharge Instructions?? Patient Instructions Call your doctor if: you note fever of 100.4 or greater, heavy vaginal bleeding, foul-smelling vaginal discharge, difficulty or burning with urination, nausea and vomiting with inability to tolerate food, pain not controlled by your prescribed medications, shortness of breath or chest pain. ??- Do not put anything in the vagina. No intercourse, tampons, or douching ??- Walk as often as you are able. - continue taking BPs twice a day * Tolu Henriquez MD: PERFORM Event Display: Discharge/Transfer Note Hospital Authored Date: [id number] Attending Attestation: I have seen and evaluated this patient. I have discussed the case and its management with the resident and agree with the findings and plan as documented in the resident???s note. * Fiorella Siddiqi RN: PERFORM Event Display: Patient Education/Instruction Authored Date: [id number] Inpatient Adult Discharge Instructions [address] [address] Name: VANDANA THOMSA : 1995 Visit: 03/28/2023 19:39:00 Current Date: 04/03/2023 09:04 Account: [id number] Inpatient Adult Discharge Instructions We would like [...] and their families. Surveys are administered by [employer] ?? If further treatment with your primary care physician or another doctor is recommended, it is important for you to keep the appointment. Call your primary care physician or return to the Emergency Department immediately if your condition worsens, fails to improve, or new symptoms develop. If you need to find a doctor, you can call [facility] [employer] for a referral at [phone] or toll free at [phone] or log in to [email or web address].. ?? You can view and manage your care through the patient portal or by using a health care singh of your choosing. [employer] is a website that allows you to securely view your medical information including your hospital discharge summary, office visit summaries, medications and follow-up visits. You can also request appointments, renew medications, and request access to your medical information using a health care singh of your choosing, or just ask a question. You can enroll at [email or web address] or register during your next office visit. You have been discharged from [facility], Patient Care Unit: [id number]. If you have any questions regarding these instructions after you leave, please call us and we will be happy to assist you. [facility] Your Care Team Attending Physician Alyssa Evans MD Consulting Providers Joann Ordaz DO Discharging Providers Joann Ordaz DO Reason for Your Visit Other: Headache, BP monitoring Your Diagnosis Encounter for induction of labor growth restriction antepartum GBS carrier Headache History of migraine History of severe pre-eclampsia HTN in , chronic Low-lying placenta state Pre-eclampsia superimposed on chronic hypertension Vaginal bleeding Tests Performed Below is a partial list of the tests performed during your hospitalization. You may have had other tests and procedures not included in this list. Please discuss all test results with your provider. ALT AST CBC Creatinine Fibrinogen INR PTT Type and Screen Primary Care Provider Not on Staff, PCP Advance Directive . Discharge Vitals Temperature: 97.7 DegF Height: 152.5 cm Pulse Rate: 86 bpm Weight: 83.6 kg Respiratory Rate: 16 br/min Body Mass Index:??37.84 kg/m2??Critical Systolic Blood Pressure:??142 mm Hg??High Body surface area: 1.93 Diastolic Blood Pressure:??90 mm Hg??High ?? Oxygen Saturation: 96 % ?? Studies Pending All tests and labs ordered during this hospital stay have been completed unless listed below. Please discuss all pending results with your provider listed above in these instructions. ?? Pathology Tissue Request () What to do next Instructions From Your Doctor Discharge Orders Instructions from your Care Team Discharge Care Instructions for the New Mom?? Please take a few moments to read through these helpful instructions before you leave the hospital.??Your nurse will be glad to answer any questions you may have. ??You can also find this and more information throughout the purple??Becoming a Family??booklet,??[facility]???[facility] New Beginnings Guide??and the?? Consultation Services Guide??given to you after the of your baby. ??You may also phone our nurses stations if you have further questions. ??[facility]: ??First Floor ([phone]), Second Floor ([phone]). ?? Please call your provider if you have any questions or concerns ??before your next appointment. For ongoing support??please?Like?us on our Facebook page?[facility]???[facility] New Beginnings?and sign up for our email newsletter at??[email or web address]. ??News and information will be sent to you??until your baby???s third birthday. Instructions for the New Mother Activity:?? For the next 2 weeks at home?no heavy lifting, avoid unnecessary stair climbing, and no driving (especially if you are taking medicine that may make you sleepy or feel that you are sleep deprived). ?? For the next 4-6 weeks - no tampons, no douches, no sexual intercourse. Use your farooq bottle to rinse your perineum until your vaginal flow stops. ??If you have stitches in your bottom, they generally dissolve within 7-10 days. ??Apply Tucks/witch marina pads until your soreness subsides. ??Use your bathroom at home every 3 to 4 hours, rinse, and change your pads. Warm showers feel great on achy muscles, sore backs and sore bottoms. Exercise: Walking is the best form of exercise. ??Wait until your follow up appointment with your provider in4-6 weeks before engaging in more strenuous activity. Diet: Drink plenty of fluids to avoid constipation and to help support your recovery. Eat plenty of iron rich foods such as red meat, iron fortified cereals like Total and Cream of Wheat, raisins, prunes, greens and spinach. ??These will help to build your blood count back up as all women lose some blood after delivery. ??Also add foods rich in Vitamin C such as strawberries, oranges, papayas, kale and glover peppers. Continue to take your vitamins if you are . ??If you are not follow the instructions of your provider. ??If you were prescribed iron supplements such as ferrous sulfate, it is important to continue these until your doctor or geosciences professor tells you to stop. Breast Care for Nursing Mothers: Wear a comfortable fitting, supportive nursing bra. ??An underwire bra is not recommended. Express drops of breast milk and rub over your nipples and areola (brown area) before and after each feeding to protect and heal sensitive skin and then air dry your nipples. ??If you are experiencing any soreness, you may purchase nipple cream such as TenderCare or Lansinoh. ??Use it in the following manner: ??finish your feeding or pumping session, self-express colostrum onto your nipple and air dry, apply the nipple cream to the nipple and areola. ??Use only small amounts for best results. If you are having difficulty getting the baby to latch onto the breast due to swelling of the areola, try applying pressure with your fingers for a couple of minutes above and below your nipple and walk your fingers outward softening the area and pushing the swelling away. ??This technique is knownas reverse pressure softening. ??For demonstrations of this and other techniques such as the Burnett Hand Expression technique, please refer to the resources section of the Consultation Services Guide that you received from services.?? When your milk first comes in, usually within 3 to 5 days after delivery, you may experience engorgement. ??Your breasts may become swollen and very tender. ??Cold compresses work great to help with discomfort and reduce swelling. It will get better in a couple of days. ??Continue to nurse your baby frequently. ?? Call [facility]???s Consultation Service at [phone], press 1 to schedule an outpatient appointment or press 3??and a risk and insurance consultant will return your call that day or the next if you call after 3pm. Breast Care for Bottle Feeding Mothers: Engorgement may occur within the first week after delivery. ??Your breasts may become hard and verytender. ??A cool compress of cleaned raw green cabbage leaves applied to the breast and changed as leaves wilt has been proven helpful for many women. ??Ice packs or frozen bags of peas also work nicely to ease the discomfort. ??The soreness will only last a couple of days. Keep your back turned to the water while showering to decrease breast stimulation. Wear a snug fitting bra such as a sports bra. Control: Your doctor or geosciences professor will discuss control methods with [facility] at your checkup. ??Be sure to let your provider know if you are .?? Pain Management: Cramping after is common and increases in strength with each baby you have. ??If you experience painful cramps, and have no allergies to acetaminophen (Tylenol) or ibuprofen (Motrin), you may continue to take these medications as you did in the hospital. ??Ibuprofen is also helpful with back aches following epidurals, perineal pain following a vaginal delivery, and moderate incisional pain after a section or a tubal ligation. ?? If you experience gas distention, especially after surgery, you may take an over the counter medication called simethicone. ??Take these chewable tablets 4 times a day as needed and directed on the package. ??Keep moving. ??Walking or rocking in a chair, will help to move the gas along. ??Heaven tea made with heated heaven hilario (instead of water) and a tea bag, stirred to dissolve carbonation (bubbles) is a helpful drink to soothe a gassy stomach. Warning Signs of a Problem to Notify Your Doctor or [employer] of: Heavy vaginal bleeding?which is??soaking a pad every hour??with bright red blood. Passing blood clots the size of an egg or larger. An incision that is not healing. A temperature greater than or equal to 100.4 especially if accompanied by any of the following symptoms?painful, frequent urination; extreme back or flank pain; lower belly pain with a foul smell to your vaginal flow; a red hard hot area on your breast. ?? Severe headache that does not go away after taking acetaminophen or ibuprofen. ?? A headache that changes your vision, including seeing spots or blurring. Right sided upper abdominal pain along the rib cage area. Pain in your legs that is warm and tender to the touch. depression signs may include?loss of interest in your baby, weepiness, difficulty focusing, weight loss with no appetite, exhaustion, feeling overwhelmed or anxious, feelings??of despair, or thoughts of harming yourself or your baby. ??These symptoms are important and should be discussed with your doctor or geosciences professor. depression may develop over a period of time and needs prompt medical attention. ??Do not suffer in silence. ??In both the??Becoming a Family??booklet and the??[facility]??New Beginnings Guide??there is a screening tool used to identify women at risk, called the Franklin Scale which you have taken in the office prior to delivery and again during [facility]. ??Three to four weeks after your delivery, and before your check with your provider, take this test and share your results with your provider. ??Be sure to mention any score of 10 or more. ?? Many women, and even some partners, may experience the?baby blues?? . ??This is a state of feeling overwhelmed and weepy. ??Discomfort from childbirth, hormonal changes, exhaustion, changes to your body and lifestyle are a few of the things that contribute to the highs and lows new parents go through. ??Don???t be afraid to ask your partner or family and friends for some help at home so you can get some rest and a few minutes to yourself. ??The blues will quickly pass. Personal Safety: Every person has the right to feel safe at home and live free from physical or emotional harm. ??Ifyou have suffered mental or physical abuse at home, you are not alone. ??There is help. ??Please call [facility] or the [employer] [facility] Program at [phone]. If Your Baby Needs to Remain in the Hospital: Please leave your??baby???s??ID bracelets on if your baby needs to remain in the hospital after youare discharged home. The phone number to NICU is [phone]. The phone number to CCN is [phone]. The phone number to Josesito Merlos 2 is [phone]. moms should pump every 2-3 hours or 8-12 times in 24 hours. ??If unable to place the baby to breast, if you are having difficulty getting the baby to latch on, or if the baby remains inthe hospital after you are discharged?bring the pumped milk to the hospital, labeled with name, date and time. ??Carry it in a small cooler or diaper bag with an ice pack and bring it the next time you visit your baby. ?? Consultation Services is available if you need to rent or purchase a pump or products. ??Call and leave a message at [phone]?press 3 and a risk and insurance consultant will return your call that day or the next if you call after 3pm. Discharge Medications VANDANA THOMAS :1995 Visit Date:03/28/2023 Medications: Please continue your medications until treatment is completed or stopped by your provider. Medications not listed below should be discontinued. Discuss any questions related to medications with your provider. What How Much When Why Instructions Next Dose New Acetaminophen (acetaminophen 325 mg oral tablet) 650 Milligram Oral Every 4 hours as needed for Pain , Mild (1-3), may give 325mg per patient preference and re-dose with 325mg within 4 hours, if needed. ?? Patient should only receive a total of 650mg of Acetaminophen every 4 hours. ?? Pickup at [facility]/pharmacy #2070 As needed New Ferrous Sulfate (ferrous sulfate 325 mg oral enteric coated tablet) 1 tab(s) Oral Daily Pickup at [facility]/pharmacy #2070 Resume as per home use New Ferrous Sulfate (ferrous sulfate 325 mg oral enteric coated tablet) 1 tab(s) Oral Daily Duration: 90 Days Refills: 1 Pickup at [facility]/pharmacy #2070 See above New Ibuprofen (ibuprofen 800 mg oral tablet) 1 tab(s) Oral Every 8 hours as needed for Pain , Moderate (4-6), may give 400mg per patient preference and re-dose with 400mg within 8 hours if needed. ?? Patient should only receive a total of 800mg of Ibuprofen every 8 hours. ?? Pickup at [facility]/pharmacy #2070 As needed Unchanged Aspirin (Aspirin Low Dose 81 mg oral delayed release tablet) 2 tab(s) Oral Daily Tomorrow morning Unchanged DiphenhydrAMINE (Benadryl 25 mg oral tablet) 1 tab(s) Oral 3 times a day as needed for as needed for motion sickness As needed Unchanged Famotidine (famotidine 20 mg oral tablet) 1 tab(s) Oral Twice a day Resume as per home use Unchanged Metoclopramide (Reglan 5 mg oral tablet) 1 tab(s) Oral 4 times a day Resume as per home use Unchanged NIFEdipine (NIFEdipine 90 mg oral tablet, extended release) 1 tab(s) Oral Daily HTN in , chronic Pickup at [facility]/pharmacy #2071 Tomorrow morning at 8AM Pharmacy Information [facility]/pharmacy #2070: [address], [place] [id number] [phone] Test Results Below is a partial list of the most recent Laboratory test results done prior to this discharge. You may have had other tests and procedures not included in this list. Please discuss all test resultswith your provider. Est Creatinine Clearance - 100.47 mL/min (03/31/2023) RBC Available - RE (03/30/2023) RBC Unit ID - [id number] (03/30/2023) ALT (03/31/2023) ???ALT (SGPT) - 7 units/L AST (03/31/2023) ???AST (SGOT) - 12 units/L CBC (03/31/2023) ???WBC - 8.6 k/mm3???RBC - 3.27 m/mm3???Hgb - 9.5 Gm/dL???Hct - 28.9 %???MCV - 88.4 femtoliters???MCH - 29.1 pg???MCHC - 32.9 g/dL???Platelet Count - 180 k/mm3???RDW-SD - 45.1 femtoliters???MPV - 9.3femtoliters???Nucleated RBC (Automated) - 0.0 #/100 WBC'S???Abs. NRBC - 0.0 k/mm3 Creatinine (03/31/2023) ???Creatinine-Blood - 0.6 mg/dL???Estimated GFR Creatinine - 127 ML/MIN/1.73 M2 Fibrinogen (03/30/2023) ???Fibrinogen - 567 mg/dL INR (03/30/2023) ???INR - 0.9???Protime (PT) - 9.8 seconds PTT (03/30/2023) ???APTT - 25.9 seconds Type and Screen (03/30/2023) ???Blood Type - A Positive???Antibody Screen - Negative Allergies (NKA means No Known Allergies) morphine??(rash) Problems Active Problems??(12) Chronic hypertension?? Depression?? growth restriction antepartum?? HIstory of GERD (gastroesophageal reflux disease)?? History of delivery?? History of severe pre-eclampsia?? Hx of migraines?? Low-lying placenta?? Obesity during ? Severe obesity (BMI 35.0-39.9) with comorbidity?? Education Materials Below is the list of Educational Leaflet Providered with your Discharge Instructions. OB PP [facility]- Discharge Instructions?? Valuables and Belongings I fully understand and agree that [facility] accepts no responsibility for all my personal [...] patient Date for Pt to Sign Valuables/Belongings: 03/28/23 20:18:00 ?? Other Discharge Information ? Pulmonary Rehab Status?? Pulmonary Rehab Discharge Status?? Respiratory Rate: 16 br/min ? Common Emergency Awareness Tips IS [...] are strongly encouraged to quit. Please call [facility] [employer] at [phone] or [phone]) or log in to [email or web address] for referrals to smoking cessation programs. ?? 485 Suicide & Crisis Lifeline is available 19/06 if you or someone you know needs to find a reason to keep living. By calling 208 you'll be connected to a skilled, trained counselor at a crisis center in your area. INPATIENT DISCHARGE INSTRUCTIONS SIGNATURE VANDANA GOODSON Location:[facility] Registration Date and Time:03/28/2023 19:39 EDT Primary Care Physician: Not on Staff, PCP VANDANA ENCINAS, have received the above patient education materials/instructions and have verbalized understanding. If ambulance or transport services are being used I further acknowledge being given a choice of service. ?? If you need to contact me, please call me at this number: . Patient/Counter Person Name: Patient/Counter Person Signature: Relationship to Patient: Witness Name/Signature: Date: Patient Care team information Care Team Personnel Name: Not on Staff, PCP Position: [facility] Physician (General Medicine) Member Role: PCP Name: Fiorella Siddiqi RN Position: [facility] OB RN Member Role: Patient Care Provider Name: Reanna Silva RN Position: [facility] OB RN Member Role: Patient Care Provider Care Team Related Persons Name: ARIC MARTEL Address: home [address] [place], [place] Name: MARISA THOMPSON Address: [address] Address: [address], [place] Name: SAM THOMPSON Address: home [address], [place] Name: [place], NO ONE Name: VANDANA THOMAS GIRL Address[address] [address] Address: home [address]
--- OUTSIDE RECORDS SUMMARY | 2024-05-03 10:19 | XMS_ITS | Continuity of Care Document ---
Author Organization [facility] Address [address] [place] [address]- Care Team Providers Care Crime Specialist Name Role Phone Not on Staff, PCP Primary Care Physician Unavail able Encounter [facility] [place] Date(s): 02/13/23 - 05/10/[address] [address]- Attending Physician: Not on Staff, Attending MD [...] give 325mg per patient preference and re-dose [id number] within 4 hours, if needed. Patient should only receive a total of 650mg of Acetaminophen every 4 hours., # 50 tablet, Refills 0, Tot. Refills 0... Start Date: 04/01/23 Status: Ordered Aspirin Low Dose 81 mg oral delayed release tablet 2 tablet, By Mouth, Daily, # 60 tablet, 6 Refills, Maintenance, 12/16/22 14:51:00 EST, [facility], 152.4, cm, 11/18/22 10:14:00 EST, Height [...] 04/01/23 9:36:00 EDT, Route to Pharmacy Electronically, [facility]/pharmacy #[id number], Partial fill upon patient request if the prescription is for a schedule II opioid drug... Start Date: 04/01/23 Status: Ordered ferrous sulfate 325 mg oral enteric coated tablet 325 mg, 1, tablet, By Mouth, Daily, # 90 tablet, Refills 1, Tot. Refills 1, Maintenance, 04/01/23 18:33:00 EDT, Route to Pharmacy Electronically, [facility]/pharmacy #[id number], Partial fill upon patient requestif [...] 04/01/23 9:36:00 EDT, Route to Pharmacy Electronically, [facility]/pharmacy #[id number], Partial fill upon patient request [...] Persons Name: ARIC MARTEL Address: home [address] [place] [address] Name: MARISA THOMPSON Address: [address] Address: home [address] [place] [address] [place] Name: SAM THOMPSON Address: home [address] [place] [address] Name: EDUIN THOMPSON Address: [address] Address: home [address] [address] [place] Name: STATES, NO ONE
--- OUTSIDE RECORDS SUMMARY | 2024-05-03 10:19 | XMS_ITS | Continuity of Care Document ---
Author Organization [facility] Address [address] [place] [address]- Care Team Providers Care Storage Garage Manager Name Role Phone Not on Staff, PCP Primary Care Physician Unavail able Encounter [facility] Date(s): 02/08/23 - 03/10/[address] [address]- Allergies, Adverse Reactions, Alerts Substance Reaction Severity [...] tablet, 6 Refills, Maintenance, 12/16/22 14:51:00 EST, [facility], 152.4, cm, 11/18/22 10:14:00 EST, [...] 02/15/23 14:41:00 EDT, Route to Pharmacy Electronically, [facility], Partial fill upon patient request [...] Personnel Name: Not on Staff, PCP Position: [facility] Physician (General Medicine) Member Role: PCP Care Team Related Persons Name: ARIC MARTEL Address: home [address] [place] [address] Name: MARISA THOMPSON Address: [address] Address: home [address] [place] [address] Name: STATES, NO ONE
--- OUTSIDE RECORDS SUMMARY | 2024-05-03 10:19 | XMS_ITS | Continuity of Care Document ---
Author Organization [facility] Address [address] [place] [address]- Care Team Providers Care Health Educator Name Role Phone Not on Staff, PCP Primary Care Physician Unavail able Encounter [facility] Date(s): 03/18/23 - 04/23/[address] [address] Attending Physician: Tiana De Leon MD Admitting Physician: Tiana De Leon MD Referring Physician: Alexandrea Gupta DO Allergies, Adverse Reactions, Alerts Substance Reaction Severity [...] give 325mg per patient preference and re-dose [id number] within 4 hours, if needed. Patient should only receive a total of 650mg of Acetaminophen every 4 hours., # 50 tablet, Refills 0, Tot. Refills 0... Start Date: 04/01/23 Status: Ordered Aspirin Low Dose 81 mg oral delayed release tablet 2 tablet, By Mouth, Daily, # 60 tablet, 6 Refills, Maintenance, 12/16/22 14:51:00 EST, [facility], 152.4, cm, 11/18/22 10:14:00 EST, [...] Persons Name: MARTELARIC MENDOZA Address: home [address] [facility] [address] [place] [address] Name: MARISA THOMPSON Address: [address] Address: home [address] [address] [place] Name: SAM THOMPSON Address: home [address] [place] [address] Name: EDUIN THOMPSON Address: [address] Address: home [address] [address] [place] Name: STATES, NO ONE
--- OUTSIDE RECORDS SUMMARY | 2024-05-03 10:20 | XMS_ITS | Continuity of Care Document ---
Author Organization [facility] Address [address] [place] [address]- Care Team Providers Care Order Picker Name Role Phone Not on Staff, PCP Primary Care Physician Unavail able Encounter [facility] [place] Date(s): 02/13/23 - 04/08/[address] [address]- Attending Physician: Not on Staff, Attending MD [...] give 325mg per patient preference and re-dose [id number] within 4 hours, if needed. Patient should only receive a total of 650mg of Acetaminophen every 4 hours., # 50 tablet, Refills 0, Tot. Refills 0... Start Date: 04/01/23 Status: Ordered Aspirin Low Dose 81 mg oral delayed release tablet 2 tablet, By Mouth, Daily, # 60 tablet, 6 Refills, Maintenance, 12/16/22 14:51:00 EST, [facility], 152.4, cm, 11/18/22 10:14:00 [...] 04/01/23 9:36:00 EDT, Route to Pharmacy Electronically, [facility]/pharmacy #[id number], Partial fill upon patient request if the prescription is for a schedule II opioid drug... Start Date: 04/01/23 Status: Ordered ferrous sulfate 325 mg oral enteric coated tablet 325 mg, 1, tablet, By Mouth, Daily, # 90 tablet, Refills 1, Tot. Refills 1, Maintenance, 04/01/23 18:33:00 EDT, Route to Pharmacy Electronically, [facility]/pharmacy #[id number], Partial fill upon patient [...] 04/01/23 9:36:00 EDT, Route to Pharmacy Electronically, [facility]/pharmacy #[id number], Partial fill upon patient [...] Persons Name: ARIC MARTEL Address: home [address] [facility] [address] [place] [address] Name: MARISA THOMPSON Address: [address] Address: home [address] [place] [address] [place] Name: SAM THOMPSON Address: home [address] [place] [address] Name: EDUIN THOMPSON Address: [address] Address: home [address] [address] [place] Name: STATES, NO ONE
--- OUTSIDE RECORDS SUMMARY | 2024-05-03 10:20 | XMS_ITS | Continuity of Care Document ---
Author Organization [facility] Address [address] [place] [address]- Care Team Providers Care Jewelry Inspector Name Role Phone Not on Staff, PCP Primary Care Physician Unavail able Encounter [facility] [place] [place] Date(s): 02/15/23 - 05/04/[address] [address]- Attending Physician: Not on Staff, Attending MD [...] give 325mg per patient preference and re-dose [id number] within 4 hours, if needed. Patient should only receive a total of 650mg of Acetaminophen every 4 hours., # 50 tablet, Refills 0, Tot. Refills 0... Start Date: 04/01/23 Status: Ordered Aspirin Low Dose 81 mg oral delayed release tablet 2 tablet, By Mouth, Daily, # 60 tablet, 6 Refills, Maintenance, 12/16/22 14:51:00 EST, [facility], 152.4, cm, 11/18/22 10:14:00 EST, [...] 04/01/23 9:36:00 EDT, Route to Pharmacy Electronically, [facility]/pharmacy #[id number], Partial fill upon patient request if the prescription is for a schedule II opioid drug... Start Date: 04/01/23 Status: Ordered ferrous sulfate 325 mg oral enteric coated tablet 325 mg, 1, tablet, By Mouth, Daily, # 90 tablet, Refills 1, Tot. Refills 1, Maintenance, 04/01/23 18:33:00 EDT, Route to Pharmacy Electronically, [facility]/pharmacy #[id number], Partial fill upon patient requestif [...] 04/01/23 9:36:00 EDT, Route to Pharmacy Electronically, [facility]/pharmacy #[id number], Partial fill upon patient request [...] Related Persons Name: MARTELARIC Address: home [address] [facility] [address] [place] [address] Name: MARISA THOMPSON Address: [address] Address: home [address] [address] [place] Name: SAM THOMPSON Address: home [address] [facility] [address] [place] [address] Name: EDUIN THOMPSON Address: [address] Address: home [address] [address] [place] Name: STATES, NO ONE
--- OUTSIDE RECORDS SUMMARY | 2024-05-03 10:20 | XMS_ITS | Continuity of Care Document ---
Author Organization [facility] Address [address] [place] [address]- Care Team Providers Care Driver Sales Name Role Phone Not on Staff, PCP Primary Care Physician Unavail able Encounter [facility] Date(s): 02/15/23 - 04/06/[address] [address]- Attending Physician: Not on Staff, Attending MD [...] give 325mg per patient preference and re-dose [id number] within 4 hours, if needed. Patient should only receive a total of 650mg of Acetaminophen every 4 hours., # 50 tablet, Refills 0, Tot. Refills 0... Start Date: 04/01/23 Status: Ordered Aspirin Low Dose 81 mg oral delayed release tablet 2 tablet, By Mouth, Daily, # 60 tablet, 6 Refills, Maintenance, 12/16/22 14:51:00 EST, [facility], 152.4, cm, 11/18/22 10:14:00 EST, [...] 04/01/23 9:36:00 EDT, Route to Pharmacy Electronically, [facility]/pharmacy #[id number], Partial fill upon patient request if the prescription is for a schedule II opioid drug... Start Date: 04/01/23 Status: Ordered ferrous sulfate 325 mg oral enteric coated tablet 325 mg, 1, tablet, By Mouth, Daily, # 90 tablet, Refills 1, Tot. Refills 1, Maintenance, 04/01/23 18:33:00 EDT, Route to Pharmacy Electronically, [facility]/pharmacy #[id number], Partial fill upon patient requestif the [...] 04/01/23 9:36:00 EDT, Route to Pharmacy Electronically, [facility]/pharmacy #[id number], Partial fill upon patient request if [...] Persons Name: ARIC MARTEL Address: home [address] [facility] [address] [place] [address] Name: MARISA THOMPSON Address: [address] Address: home [address] [place] [address] [place] Name: SAM THOMPSON Address: home [address] [place] [address] Name: EDUIN THOMPSON Address: [address] Address: home [address] [address] [place] Name: STATES, NO ONE
--- OUTSIDE RECORDS SUMMARY | 2024-05-03 10:20 | XMS_ITS | Continuity of Care Document ---
Author Organization [facility] Address [address] [place] [address]- Care Team Providers Care Letter Of Credit Clerk Name Role Phone Not on Staff, PCP Primary Care Physician Unavail able Encounter [facility] Date(s): 02/13/23 - 05/17/[address] [address]- Attending Physician: Not on Staff, Attending MD [...] give 325mg per patient preference and re-dose [id number] within 4 hours, if needed. Patient should only receive a total of 650mg of Acetaminophen every 4 hours., # 50 tablet, Refills 0, Tot. Refills 0... Start Date: 04/01/23 Status: Ordered Aspirin Low Dose 81 mg oral delayed release tablet 2 tablet, By Mouth, Daily, # 60 tablet, 6 Refills, Maintenance, 12/16/22 14:51:00 EST, [facility], 152.4, cm, 11/18/22 10:14:00 EST, [...] 04/01/23 9:36:00 EDT, Route to Pharmacy Electronically, [facility]/pharmacy #[id number], Partial fill upon patient request if the prescription is for a schedule II opioid drug... Start Date: 04/01/23 Status: Ordered ferrous sulfate 325 mg oral enteric coated tablet 325 mg, 1, tablet, By Mouth, Daily, # 90 tablet, Refills 1, Tot. Refills 1, Maintenance, 04/01/23 18:33:00 EDT, Route to Pharmacy Electronically, [facility]/pharmacy #[id number], Partial fill upon patient requestif the [...] 04/01/23 9:36:00 EDT, Route to Pharmacy Electronically, [facility]/pharmacy #[id number], Partial fill upon patient request if [...] Persons Name: ARIC MARTEL Address: home [address] [facility] [address] [address] [place] [address] Name: MARISA THOMPSON Address: [address] Address: home [address] [place] [address] [place] Name: SAM THOMPSON Address: home [address] [place] [address] Name: EDUIN THOMPSON Address: [address] Address: home [address] [address] [place] Name: STATES, NO ONE
--- OUTSIDE RECORDS SUMMARY | 2024-05-03 10:20 | XMS_ITS | Continuity of Care Document ---
Author Organization [facility] Address [address] [place] [address]- Care Team Providers Care Sales Representatives Name Role Phone Not on Staff, PCP Primary Care Physician Unavail able Encounter [facility] Date(s): 04/11/23 - 05/11/[address] [address]- Allergies, Adverse Reactions, Alerts Substance Reaction Severity [...] give 325mg per patient preference and re-dose [id number] within 4 hours, if needed. Patient should only receive a total of 650mg of Acetaminophen every 4 hours., # 50 tablet, Refills 0, Tot. Refills 0... Start Date: 04/01/23 Status: Ordered Aspirin Low Dose 81 mg oral delayed release tablet 2 tablet, By Mouth, Daily, # 60 tablet, 6 Refills, Maintenance, 12/16/22 14:51:00 EST, [facility], 152.4, cm, 11/18/22 10:14:00 EST, Height [...] EDT, Route to Pharmacy Electronically, [facility]/pharmacy #[id number], Partial fill upon patient request if the prescription is for a schedule II opioid drug... Start Date: 04/01/23 Status: Ordered ferrous sulfate 325 mg oral enteric coated tablet 325 mg, 1, tablet, By Mouth, Daily, # 90 tablet, Refills 1, Tot. Refills 1, Maintenance, 04/01/23 18:33:00 EDT, Route to Pharmacy Electronically, [facility]/pharmacy #[id number], Partial fill upon patient requestif [...] EDT, Route to Pharmacy Electronically, [facility]/pharmacy #[id number], Partial fill upon patient request [...] Related Persons Name: MARTELARIC Address: home [address] [facility] [address] [place] [address] Name: MARISA THOMPSON Address: [address] Address: home [address] [address] [place] Name: SAM THOMPSON Address: home [address] [place] [address] Name: EDUIN THOMPSON Address: Address: home [address] [address] [place] Name: STATES, NO ONE
--- OUTSIDE RECORDS SUMMARY | 2024-05-03 10:20 | XMS_ITS | Continuity of Care Document ---
Author Organization [facility] ter Address [address] [place] [address]- Care Team Providers Care Manager Corporate Responsibility Name Role Phone Not on Staff, PCP Primary Care Physician Unavail able Encounter [facility] Date(s): 02/17/23 - 02/17/[address] [address] Discharge Disposition: A-D/C Home Attending Physician: Diamond Abbasi MD Admitting Physician: Diamond Abbsai MD Referring Physician: Diamond Abbasi MD Allergies, Adverse Reactions, Alerts Substance Reaction [...] tablet, 6 Refills, Maintenance, 12/16/22 14:51:00 EST, [facility], 152.4, cm, 11/18/22 10:14:00 EST, Height Start Date: 12/16/22 Status: Ordered NIFEdipine 90 mg oral tablet, extended release 90 mg, 1, tablet, By Mouth, Daily, # 30 tablet, Refills 3, Tot. Refills 3, Maintenance, 02/15/23 14:41:00 EDT, Route to Pharmacy Electronically, [facility], Partial fill upon patient request if the prescription is for a schedule II... Start Date: 02/15/23 Status: Ordered Problem List Condition Confirmation Course Effective Dates Status Health St atus Informant Depression Confirmed Active HIstory of GERD (gastroesophageal reflux [...] Persons Name: ARIC MARTEL Address: home [address] [place] [address] Name: MARISA THOMPSON Address: [address] Address: home [address] [place] [address] Name: STATES, NO ONE
--- OUTSIDE RECORDS SUMMARY | 2024-05-03 10:20 | XMS_ITS | Continuity of Care Document ---
Author Organization [facility] Address [address] [place] [address]- Care Team Providers Care Seedling Puller Name Role Phone Not on Staff, PCP Primary Care Physician Unavail able Encounter [facility] [place] Date(s): 02/15/23 - 05/18/[address] [address]- Attending Physician: Not on Staff, Attending MD [...] give 325mg per patient preference and re-dose [id number] within 4 hours, if needed. Patient should only receive a total of 650mg of Acetaminophen every 4 hours., # 50 tablet, Refills 0, Tot. Refills 0... Start Date: 04/01/23 Status: Ordered Aspirin Low Dose 81 mg oral delayed release tablet 2 tablet, By Mouth, Daily, # 60 tablet, 6 Refills, Maintenance, 12/16/22 14:51:00 EST, [facility], 152.4, cm, 11/18/22 10:14:00 EST, [...] 04/01/23 9:36:00 EDT, Route to Pharmacy Electronically, [facility]/pharmacy #[id number], Partial fill upon patient request if the prescription is for a schedule II opioid drug... Start Date: 04/01/23 Status: Ordered ferrous sulfate 325 mg oral enteric coated tablet 325 mg, 1, tablet, By Mouth, Daily, # 90 tablet, Refills 1, Tot. Refills 1, Maintenance, 04/01/23 18:33:00 EDT, Route to Pharmacy Electronically, [facility]/pharmacy #[id number], Partial fill upon patient [...] 04/01/23 9:36:00 EDT, Route to Pharmacy Electronically, [facility]/pharmacy #[id number], Partial fill upon patient [...] Persons Name: ARIC MARTEL Address: home [address] [facility] [address] [place] [address] Name: MARISA THOMPSON Address: [address] Address: home [address] [place] [address] [place] Name: SAM THOMPSON Address: home [address] [place] [address] Name: EDUIN THOMPSON Address: [address] Address: home [address] [address] [place] Name: STATES, NO ONE
--- OUTSIDE RECORDS SUMMARY | 2024-05-03 10:20 | XMS_ITS | Continuity of Care Document ---
Author Organization [facility] ter Address [address] [place] [id number]- Care Team Providers Care Care Support Representative Name Role Phone Not on Staff, PCP Primary Care Physician Unavail able [place] [facility] [place] - 02/08/[address] [address] Discharge Disposition: A-D/C Home Attending Physician: Diamond Abbasi MD Admitting Physician: Diamond Abbasi MD Referring Physician: Not on Staff, Referring MD Allergies, Adverse Reactions, Alerts Substance Reaction Severity Status morphine rash Active Immunizations Given and Recorded Vaccine Date Status Refusal Reason tetanus/diphtheria/pertussis, acel(Tdap) 07/23/19 Given Not Given Vaccine Date Status Refusal Reason influenza virus vaccine, inactivated 02/09/23 Not Given Patient Refuses Medications Aspirin Low Dose 81 mg oral delayed release tablet 2 tablet, By Mouth, Daily, # 60 tablet, 6 Refills, Maintenance, 12/16/22 14:51:00 EST, [facility], 152.4, cm, 11/18/22 10:14:00 EST, Height Start Date: 12/16/22 Status: Ordered NIFEdipine (Eqv-Procardia XL) 60 mg oral tablet, extended release 1 tablet, By Mouth, Daily, # 90 tablet, 0 Refills, Maintenance, 01/17/23 15:30:00 EST, [facility], 152.4, cm, 01/13/23 10:57:00 EST, Height Start Date: 01/17/23 Status: Ordered Tylenol 325 mg oral tablet 975 mg, Tablet, By Mouth, Every 6 hours, PRN for Headache, Routine, 02/08/23 13:24:00 EDT Start Date: 02/08/23 Stop Date: 02/09/23 Status: Discontinued Problem List Condition Confirmation Course Effective Dates Status Health atus Informant Depression Confirmed Active Marijuana use last used Jul 2022 Confirmed Active HIstory of GERD (gastroesophageal reflux disease) Confirmed Active Hx of migraines Confirmed Active History of severe pre-eclampsia Confirmed Active Chronic hypertension Confirmed Active Obesity during Confirmed Active Severe obesity (BMI 35.0-39.9) with comorbidity Confirmed Active Vital Signs Most recent to oldest [Reference Range]: 1 2 3 Height 153 cm (02/08/23 11:36 AM) Weight 85 kg (02/08/23 11:36 AM) Oxygen Saturation [94-100 %] 100 % (02/08/23 4:14 PM) 99 % (02/08/23 2:09 PM) Pulse Rate [55-90 bpm] 104 bpm *H* (02/08/23 11:36 AM) Body Mass Index [18.5-24.99 kg/m2] 36.31 kg/m2 *>HHI* (02/08/23 11:36 AM) Blood Pressure [90-138/55-84 mm Hg] 150/94mm Hg *H* (02/08/23 6:11 PM) 147/91mm Hg *H* (02/08/23 4:14 PM) 147/91mm Hg *H* (02/08/23 2:09 PM) Respiratory Rate [16-30 br/min] 20 br/min (02/08/23 6:11 PM) 18 br/min (02/08/23 4:14 PM) 18 br/min (02/08/23 2:09 PM) Temperature [96.8-100.4 DegF] 99 DegF (02/08/23 4:14 PM) 98.5 DegF (02/08/23 11:36 AM) Mode of Delivery (Oxygen) Room air (02/08/23 6:11 PM) Blood pressure sites Arm, right (02/08/23 6:11 PM) Arm, right (02/08/23 11:36 AM) Temperature Route Oral (02/08/23 4:14 PM) Oral (02/08/23 11:36 AM) Dry Weight 85 kg (02/08/23 11:36 AM) Social History Social History Type Response Smoking Status Never (less than 100 in lifetime) entered on: 09/19/22 Sex History and physical note * Debra Montejo DO: PERFORM Event Display: History and Physical Hospital Authored Date: Patient: ??VANDANA THOMAS ? Age:??27 Years?Sex:??Female?:??1995?? OB Reason for Admission OB Reason for Admission Reason for admission: Chronic hypertension LMP/EGA/JAY JAY Gestational Age (EGA) and JAY JAY? * Note: EGA calculated as of 02/08/2023 ?? JAY JAY:??05/03/2023?EGA*:??28 weeks ? History?(3,1,2,4)?Method:??Last Menstrual Period??(07/27/2022) History of Present Illness Vandana is a 27 year old at 28+0, history of chronic hypertension and pre- eclampsia in prior , presenting for admission for blood pressure monitoring and headache treatment. She was seenyesterday in [facility] but was unable to stay for admission due to childcare issues. She takes nifedipine 60mg daily which she has been on since her new OB visit in September and has been normotensive until two days ago she started having mild range blood pressures. She also has a headache. Finds she hasa headache mostly everyday since the beginning of and also has history of migraines. She finds this headache is pressure behind her eye on the right. Also having some sensitivity to light. She has been taking tylenol but finds no relief with it. Otherwise no chest pain, shortness of breath, extremity swelling ?? Otherwise denies contractions, leakage of fluid, vaginal bleeding. Admits to good movement?? Physical Exam Vitals & Measurements T:??98.5?F ?? HR:??94(Monitored)?? TX:??104?? RR:??18?? BP:??147/91?? SpO2:??99%?? HT:??153??cm?? WT:??85??kg?? BMI:??36.31?? General: Alert, in no acute distress. Respiratory: Clear to auscultation bilaterally. No wheezing, rales or rhonchi. Cardiovascular: Heart sounds normal. Regular rate and rhythm, no murmurs, rubs or gallops. Gastrointestinal: Abdomen soft, non-tender, non-distended. OB Assessment normal baseline moderate variability no accels, no decels ?? tocometer: no uterine activity Assessment/Plan Assessment:??Vandana is a 27 year old at 28+0, history of chronic hypertension and pre-eclampsia in prior , presenting for admission for blood pressure monitoring and headache treatment.Vitals on arrival. Patient did not realize she would be admitted, discussed concern for developing pre- eclampsia given new elevated blood pressures and headache feeling similar to the headache she had when she had pre-eclampsia in her past pregnancies. She is unsure if she is able to stay overnightfor childcare issues as her partner will be working and she has no childcare. Offered to write worknote for her partner, she states she will try to talk with him. Reviewed that it is our recommendation she stay for prolonged monitoring and headache treatment. Will give tylenol 975mg??for her headache at this time and will give reglan/benadryl if her headache is not improved with tylenol ?? Chronic hypertension (I10):? nifedipine 60mg daily BPq2h wihile awake, q4h while asleep 3/14 HELLP labs wnl ?? History of delivery (Z87.51):? - Iatrogenic 34wk delivery 2017 - Induced for severe preeclampsia ?? History of severe pre-eclampsia (Z87.59):? - in two of her pregnancies? - (x) ASA 162 mg daily ?? Hx of migraines (Z86.69):?Intermittent headaches, typically resolves with rest/hydration/dark room ?? (Z34.90):? CEFM regular diet [ ] 28 week labs if staying ?? Patient discussed with Dr. Henriquez, attending physician OB History History?(3,1,2,4)? # 1 ?Baby 1 [...] ? Sex:??Female?Wt:?2126 g ?Maternal Complications:??Pre-eclampsia ?Anesthesia Type:??Epidural ?Hospital:??[facility] ?Comment:??Induction of labor for preeclampsia ?? # 5 ?Baby 1 ?Outcome Date:??10/01/2019?Outcome or Result:??Vaginal ?Gest Age:??37 weeks 2 days ? Outcome:??Live ? Sex:??Male?Wt:?2760 g ? Complications:??None ?Hospital:??[facility] ?? # 6 ?Baby 1 ?Outcome Date:??2020 ?Outcome or Result:??Spontaneous ?Gest Age:??-- ? Outcome:? Sex:??-- Labs Labs Labs & Tests Antibody Screen: Negative (09/21/22) Chlamydia Trachomatis Amplified Probe: NEGATIVE (10/21/22) Creatinine-Blood: 0.6 mg/dL (02/07/23) Down Syndrome Age Risk FTS: Age Risk: (10/11/22) Down Syndrome Scrn Risk FTS: Screening Risk: (10/11/22) Hct:??34.5 %??Low (02/07/23) Hepatitis B Surface Antigen: NEGATIVE (09/21/22) Hepatitis C Ab: NEGATIVE (09/21/22) Hgb: 11.7 Gm/dL (02/07/23) HIV 4th Generation Ab-Ag Result: NEGATIVE (09/21/22) RPR Titer Result: NOT INDICATED (09/21/22) Rubella IgG Ab: POSITIVE (09/21/22) Syphilis Screen by HELENE: NEGATIVE (09/21/22) Trisomy 18 Scrn Risk FTS: Screening Risk: (10/11/22) Urine Culture: Urine Culture (09/21/22) Problem List Active Active Problem List Chronic hypertension: (Medical) Depression: (Medical) HIstory of GERD (gastroesophageal reflux disease): (Medical) History of severe pre-eclampsia: (Medical) Hx of migraines: (Medical) Marijuana use last used Jul 2022: (Medical) Obesity during : (Medical) : (Obstetric) (07/27/22) Severe obesity (BMI 35.0-39.9) with comorbidity: (Medical) Procedure/Surgical History Unilateral oophorectomy: 2019 Vaginal delivery Home Medications Aspirin: 2 tablet, By Mouth, Daily NIFEdipine: 1 tablet, By Mouth, Daily Allergies morphine??(rash) [...] Father: Hypertension Plan No Data Found * Tolu Henriquez MD: PERFORM Event Display: History and Physical Hospital Authored Date: Attending Attestation: I have seen and evaluated this patient. I have discussed the case and its management with the resident and agree with the findings and plan as documented in the resident???s note. Note * Debra Montejo DO: PERFORM Event Display: Discharge/Transfer Note Hospital Authored Date: [id number] Patient: ??VANDANA THOMAS ? Age:??27 Years?Sex:??Female?:??1995?? Admit Date Admission Date: 02/08/2023 Discharge Date 02/08/23 OB Reason for Admission OB Reason for Admission Reason for admission: Chronic hypertension [facility] Course Vandana is a 27 year old at 28+0, history of chronic hypertension and pre- eclampsia in prior , presenting for admission for blood pressure monitoring and headache treatment. Repeat labs within normal limits. Blood pressures were significant for mild range blood pressures. She had a headache that resolved with tylenol. She ultimately desires to leave because of childcare issues. Discussed continuing blood pressure monitoring twice a day and continuing her nifedipine 60mg daily. [facility] consult outpatient for further recommendations regarding blood pressure management Objective/Physical Exam on Day of Discharge Vitals & Measurements T:??99?F ?? HR:??85(Monitored)?? TX:??104?? RR:??20?? BP:??150/94?? SpO2:??100%?? HT:??153??cm?? WT:??85??kg?? BMI:??36.31?? Constitutional:??Well-developed, no acute distress. Respiratory: no labored breathing.? Abdomen/GI:??Soft, non-tender, non-distended, no guarding or rebound tenderness.??Gravid?? Skin:??No rash or jaundice. Normal for ethnicity. Neurological/Psychiatric:??Appearance appropriate, mood and affect stable. Assessment/Plan/Discharge Diagnosis Assessment:??Vandana is a 27 year old at 28+0, history of chronic hypertension and pre-eclampsia in prior , presenting for admission for blood pressure monitoring and headache treatment.Headache resolved with Tylenol. Blood pressures ranged from normotensive to mild range. Repeat HELLP labs wnl. Patient desired discharge due to childcare issues. Discussed with patient outpatient follow up with MFM consult regarding blood pressure titration. Advised to continue nifedipine 60mg and baby scripts monitoring twice a day. ?? Chronic hypertension (I10):? nifedipine 60mg daily 02/07 HELLP labs wnl 02/08 HELLP labs wnl Babyscripts monitoring MFM consult placed, outpatient ? History of delivery (Z87.51):? - Iatrogenic 34wk delivery 2017 - Induced for severe preeclampsia ?? History of severe pre-eclampsia (Z87.59):? - in two of her pregnancies? - (x) ASA 162 mg daily ?? Hx of migraines (Z86.69):?Intermittent headaches, typically resolves with rest/hydration/dark room ?? (Z34.90):? CEFM regular diet ?? Future Appointments Monday 2:20 PM EDT ?? With: Alexandrea Gupta DO Where: [facility] - Specialist Field Engineer [address] [place] [id number]- Monday 2:20 PM EDT ?? With: Celine Taylor MD Where: [facility] - Specialist Field Engineer [address] [place] [phone]- Delivery Summary Delivery Summary Maternal Information ??Delivery Information ?Gestational Age at Delivery: ??28 weeks ? Baby A ??Labor Information ? monitoring: ??External monitor ? Discharge Medications ???Aspirin (Aspirin Low Dose 81 mg oral delayed release tablet)???NIFEdipine (NIFEdipine (Eqv-Procardia XL) 60 mg oral tablet, extended release) Immunizations during Hospitalization Vaccine Date Status Commentsinfluenza virus vaccine, inactivated - Not Given Patient Refuses tetanus/diphtheria/pertussis, acel(Tdap) 07/23/2019 Given Feeding Method No Results Patient Education Titles Discharge Instructions for High Blood Pressure (Hypertension)?? Taking Your Blood Pressure?? Understanding Preeclampsia?? and Childbirth: Premature Rupture of the Membranes (PROM)?? Kick Counts?? Follow-Up Appointments MFM consult Patient Instructions Call your provider if you have any of the following symptoms: headache that doesn't go away with pain medication, spots in your vision, pain on the right side underneath the ribs, unusual swelling, chest pains or trouble breathing?? * Gillian Vance RN: PERFORM Event Display: Discharge/Transfer Note Hospital Authored Date: [id number] Nursing Discharge Note Entered On: 02/08/2023 18:29 EDT Performed On: 02/08/2023 18:20 EDT by Gillian Vance RN Nursing Discharge Note 2 Discharge Time : 02/08/2023 18:20 EDT Discharge Level of Care at Discharge : Home/Assisted/Foster Care Teacher'S Aide Utilized : No Patient Left Unit Via : Ambulatory Patient Accompanied Off Unit with : Other: Self DC Instructions Provided & Signed by Pt : Yes Patient Understands D/C Instructions : Yes Verbalized Understanding of D/C Plan By : Patient Patient Instructions Discharge Signed : Yes Did Pt have Specialty Bed or Wound Vac : No Gillian Vance RN - 02/08/2023 18:28 EDT * Gillian Vance RN: PERFORM Event Display: Patient Education/Instruction Authored Date: [id number] Inpatient Adult Discharge Instructions [address] [address] Name: VANDANA WILLIAM : 1995 Visit: 02/08/2023 10:47:00 Current Date: 02/08/2023 18:08 Account: [id number] Inpatient Adult Discharge Instructions We would like [...] and their families. Surveys are administered by [employer] ?? If further treatment with your primary care physician or another doctor is recommended, it is important for you to keep the appointment. Call your primary care physician or return to the Emergency Department immediately if your condition worsens, fails to improve, or new symptoms develop. If you need to find a doctor, you can call [facility] for a referral at [phone] or toll free at [phone] or log in to [email or web address] ?? You can view and manage your care through the patient portal or by using a health care singh of your choosing. [employer] is a website that allows you to securely view your medical information including your hospital discharge summary, office visit summaries, medications and follow-up visits. You can also request appointments, renew medications, and request access to your medical information using a health care singh of your choosing, or just ask a question. You can enroll at [email or web address] or register during your next office visit. You have been discharged from [facility], Patient Care Unit: [facility]. If you have any questions regarding these instructions after you leave, please call us and we will be happy to assist you. [facility] Your Care Team Attending Physician Elroy ABRAHAM, Diamond Henriquez MD, Tolu Discharging Providers Debra Montejo DO Reason for Admission Chronic hypertension Your Diagnosis Chronic hypertension History of delivery History of severe pre-eclampsia Hx of migraines Tests Performed Below is a partial list [...] Patient refuses to discuss Discharge Vitals Temperature: 99 DegF Height: 153 cm Pulse Rate:??104 bpm??High Weight: 85 kg Respiratory Rate: 18 br/min Body Mass Index:??36.31 kg/m2??Critical Systolic Blood Pressure:??147 mm Hg??High Body surface area: 1.9 Diastolic Blood Pressure:??91 mm Hg??High ?? Oxygen Saturation: 100 % ?? Studies Pending All tests and labs ordered during this hospital stay have been completed unless listed below. Please discuss all pending results with your provider listed above in these instructions. ?? COVID-19 (2019 Novel Coronavirus) PCR What to do next Instructions From Your Doctor Discharge Orders Scheduled Follow-Up Appointments Monday 2:20 PM EDT ?? With: Alexandrea Gupta DO Where: [facility] - Specialist Field Engineer [address] [place] [phone]- Monday 2:20 PM EDT ?? With: Celine Taylor MD Where: [facility] - Specialist Field Engineer [address] [place] [id number]- Discharge Medications VANDANA THOMAS :1995 Visit Date:02/08/2023 Medications: Please continue your medications until treatment is completed or stopped by your provider. Medications not listed below should be discontinued. Discuss any questions related to medications with your provider. What How Much When Instructions Next Dose Unchanged Aspirin (Aspirin Low Dose 81 mg oral delayed release tablet) 2 tab(s) Oral Daily 02/09/23 Unchanged NIFEdipine (NIFEdipine (Eqv-Procardia XL) 60 mg oral tablet, extended release) 1 tab(s) Oral Daily 02/09/23 Test Results Below is a partial list of the most recent Laboratory test results done prior to this discharge. You may have had other tests and procedures not included in this list. Please discuss all test resultswith your provider. ALT (02/08/2023) ???ALT (SGPT) - 8 units/L AST (02/08/2023) ???AST (SGOT) - 12 units/L CBC (02/08/2023) ???WBC - 9.8 k/mm3???RBC - 4.32 m/mm3???Hgb - 12.5 Gm/dL???Hct - 37.6 %???MCV - 87.0 femtoliters???MCH - 28.9 pg???MCHC - 33.2 g/dL???Platelet Count - 251 k/mm3???RDW-SD - 42.7 femtoliters???MPV - 9.8 femtoliters???Nucleated RBC (Automated) - 0.0 #/100 WBC'S???Abs. NRBC - 0.0 k/mm3 Creatinine (02/08/2023) ???Creatinine-Blood - 0.6 mg/dL???Estimated GFR Creatinine - 127 ML/MIN/1.73 M2 Protein/Creatinine Ratio Urine (02/08/2023) ???Protein, Total Urine Random - 5 mg/dL???TP/Cr Ratio - 0.12???Creatinine, Urine - 42.3 mg/dL Immunizations This Visit Not Given Vaccine Commentsinfluenza virus vaccine, inactivated Patient Refuses Allergies (NKA means No Known Allergies) morphine??(rash) Problems Active Problems??(9) Chronic hypertension?? Depression?? HIstory of GERD (gastroesophageal reflux disease)?? History of severe pre-eclampsia?? Hx of migraines?? Marijuana use last used Jul 2022?? Obesity during ? Severe obesity (BMI 35.0-39.9) with comorbidity?? Education Materials Below is the list of Educational Leaflet Providered with your Discharge Instructions. Discharge Instructions for High Blood Pressure (Hypertension)?? Taking Your Blood Pressure?? Understanding Preeclampsia?? and Childbirth: Premature Rupture of the Membranes (PROM)?? Kick Counts?? Valuables and Belongings I fully understand and agree that [facility] accepts no responsibility for all my personal [...] to send valuables and belongings home. ?? Date for Pt to Sign Valuables/Belongings: 02/08/23 11:44:00 ?? Other Discharge Information ? Pulmonary Rehab Status?? Pulmonary Rehab Discharge Status?? Respiratory Rate: 18 br/min ? Common Emergency Awareness Tips IS [...] are strongly encouraged to quit. Please call [facility] at [phone] or [phone] ([phone]) or log in to [email or web address] for referrals to smoking cessation programs. ?? The National Suicide Prevention Hotline is available 19/06 if you or someone you know needs to find a reason to keep living. By calling 9-879-874-[employer] (7969) you'll be connected to a skilled, trained counselor at a crisis center in your area. INPATIENT DISCHARGE INSTRUCTIONS SIGNATURE VANDANA GOODSON Location:[facility] Registration Date and Time:02/08/2023 10:47 EDT Primary Care Physician: Not on Staff, PCP VANDANA ENCINAS, have received the above patient education materials/instructions and have verbalized understanding. If ambulance or transport services are being used I further acknowledge being given a choice of service. ?? If you need to contact me, please call me at this number: . Patient/Lead Setter Name: Patient/Lead Setter Signature: Relationship to Patient: Witness Name/Signature: Date: * Rajiv CHAVES Gillian: PERFORM Event Display: Patient Education Leaflets Authored Date: [id number] Discharge Instructions for High Blood Pressure (Hypertension) ?? [id number] Discharge Instructions for High Blood Pressure (Hypertension) You have been diagnosed with high blood pressure. This is known as hypertension. This means the force of blood against your artery delaney is too strong. It means your heart is working hard to move blood. High blood pressure usually has no symptoms. But over time, it can cause serious health problems. High blood pressure raises your risk for these problems: ??? Heart attack ??? Stroke ??? Heart disease ??? Heart failure ??? Kidney disease ??? Vision loss With help from your healthcare provider, you can manage your blood pressure and protect your health. Blood pressure measurements are given as 2 numbers. Systolic blood pressure is the upper number. This is the pressure when the heart contracts or pumps. Diastolic blood pressure is the lower number. This is the pressure when the heart relaxes between beats. Blood pressure is grouped like this: ??? Normal blood pressure. This is systolic of less than 120 and diastolic of less than 80 (120/80)at rest ??? Elevated blood pressure. This is systolic of 120 to 129 and diastolic less than 80 at rest ??? Stage 1 high blood pressure. This is systolic is 130 to 139 or diastolic between 80 to 89 atrest ??? Stage 2 high blood pressure. This is when systolic is 140 or higher or the diastolic is 90or higher at rest Taking medicine ??? Learn to measure your own blood pressure. Keep a record of your results. Ask your healthcare provider what numbers mean that you need medical care. ??? Take your blood pressure medicine exactly as directed. Don???t skip doses. Missing doses??can cause your blood pressure to get out of control. ??? Ask your healthcare provider what to do if you miss a dose. ??? Don't take medicines that contain heart stimulants. This includes [id number] medicines. Check for warnings about high blood pressure on the label. Ask the pharmacist before buying a medicine you haven't used before. ??? Check with your healthcare provider before taking a decongestant. This includes medicines with pseudoephedrine or phenylephrine on the label. Ask the pharmacist if you are not sure. These can make high blood pressure worse. ??? If you take medicine to have sex, talk to your healthcare provider. Taking these medicines with a type of blood pressure medicine called nitrates can be dangerous. This can drop your blood pressure too low. ?? Lifestyle changes ??? Keep a healthy weight. Get help to lose any extra pounds. Meeting with a dietitian can help you make diet changes to help with weight loss. ??? Cut back on salt. To do this: o Limit canned, dried, packaged, and fast foods. o Don???t add salt to your food at the table. o Seasonfoods with herbs instead of salt when you cook. o Ask for no added salt when you eat out. o Have nomore than??1,500 mg a??day of sodium. You can make a positive change by??cutting back to even 2,300mg of sodium a day. Read all food labels to see how much sodium they have.? Follow the DASH eating plan. DASH stands for Dietary Approaches to Stop Hypertension.??This plan advises a way to eat for healthy blood pressure. The diet includes vegetables, fruits, whole grains, and other healthy foods. ??? Eat food rich in potassium. ??? Begin an exercise program. Talk with your healthcare provider before you get started. Work up to aerobic exercise 3 to 4 times a week for an average of 40 minutes at a time to lower blood pressure. Even simple activities can help blood pressure. These includewalking or gardening. ??? If you smoke, work to stop. Enroll in a stop- smoking program. This will improve your chance of success. Ask your healthcare provider about programs and medicines to help youstop smoking. ??? Limit drinks with caffeine to 2 per day. This includes such as coffee, black or green tea, and cola. ??? Never take stimulants such as amphetamines or cocaine. These drugs can be deadly for a person with high blood pressure. ??? Work to lessen your stress. You can learn ways to manage stress. ??? Limit how much alcohol you drink. This means no more than 1 drink a day for women and 2 drinks a day for men. ?? Follow-up care Make a follow-up appointment as directed. ?? When to call your healthcare provider Call your healthcare provider right away if you have any of these: ??? Moderate headache ??? Extreme drowsiness ??? Dizziness or fainting ??? Pulsating or rushing sound in your ears ??? Unexplained??nosebleed ??? Blood pressure measured at home that is higher than 180/110 ?? Call 911 Call 911 right away if you have any of these symptoms: ??? Chest pain or shortness of breath ??? Severe headache ??? Weakness, tingling, or numbness of your face, arms, or legs (especially on 1 side of the body) ??? Change in vision ??? Confusion, trouble speaking, or trouble understanding speech ?? Last Reviewed Date: 2021 ?? 2409-5592 [employer]. All rights reserved. This information is not intended as a substitute for professional medical care. Always follow your healthcare professional's instructions. ?? * Rajiv CHAVES, Gillian: PERFORM Event Display: Patient Education Leaflets Authored Date: [id number] Taking Your Blood Pressure ?? [address]23 C??mo tomarse la presi??n arterial La presi??n arterial es la fuerza que la javier ejerce contra las berg de los vasos al desplazarse por ellos. Usted puede tomarse bowen propia presi??n arterial con un medidor digital. T??mese la presi??n arterial a la misma hora y en el mismo brazo, busch a menudo ericka le indique bowen proveedor de atenci??n m??dica. Acerca de los monitores de presi??n arterial Los monitores de presi??n arterial est??n dise??ados para diferentes edades y diferentes casos. Usted puede encontrar monitores para adultos mayores, para mujeres embarazadas y para ni??os. Aseg??rese de que el que escoja es el adecuado para bowen edad y situaci??n. [place] [employer] recomienda un monitor automatizado con manguito que se adapte al rupesh??o de bowen brazo (biceps). Bowen brazo debe caber gail dentro del manguito, ya que si es muy wilfrido o muy peter??o no suministrar?? reba lectura exacta. M??dase el grosor de bowen barazo para encontrar la talla correcta para usted. Los monitores que se ahieren a un dedo o a la mu??eca no son busch precisos ericka los que se adhieren a bowen brazo. P??gabriela a bowen proveedor de atenci??n m??dica que le ayude a escoger un monitor. Traiga el monitor a bowen pr??xima israel m??dica si necesita ayuda para aprender a usarlo correctamente. Los pasos que se sudeep a continuaci??n son instrucciones generales para usar un monitor digital automatizado. ?? 1. Rel??henry ??? T??mese la presi??n arterial a la misma hora todos los d??as, ericka temprano en la ma??emily o al final de la tarde. ??? Espere al menos reba hora despu??s de duglas fumado, comido o hecho ejercicio. No jake caf??, t??, soda u otras bebidas cafe??nadas antes de tomarse la presi??n. ??? Si??ntese c??modamente a la magallanes. Coloque el medidor digital cerca de usted. ??? Descanse jaziel algunos minutos antes de empezar. ?? 2. Coloque el manguito ??? Ponga el brazo sobre la magallanes, con la pandya de la mano hacia arriba. El brazo debe quedar a la altura del coraz??n. Ajuste el manguito alrededor del brazo, marley por encima del codo. Es mejor colocarlo sobre la piel desnuda, sin ropa. La mayor??a de los manguitos le indicar??n donde debe alinearlo con la arteria braquial (el vaso sangu??breanne en la mitad del brazo en la parte interna del codo). Anne las instrucciones que vienen con bowen monitor para esteban reba ilustraci??n. Tambi??n puede llevar sumanguito a la israel con bowen proveedor de atenci??n m??dica para que le muestren c??mo usarlo correctamente. ?? 3. Infle el manguito ??? Oprima el bot??n para iniciar el bombeo autom??rayo. ??? El manguito mercedes se aprieta y luegose afloja. ??? Los n??meros cambian. Cuando paran de cambiar, el medidor indicar?? bowen presi??n arterial. ??? T??mese 2 o 3 lecturas con un minuto de diferencia entre reba y otra. ?? 4. Anote los resultados ??? Amberg nota de los n??meros de bowen presi??n arterial, as?? ericka de la fecha y la hora de la medici??n. Mantenga los resultados en un solo lugar, por ejemplo en un cuaderno. Incluso si bowen monitor tiene reba memoria incorporada, mantenga reba copia por escrito de los resultados. ??? Quite el manguito del brazo y apague la m??quina. ??? Traiga los resultados de vinny lecturas a cada reba de las citas con bowen proveedor de atenci??n m??dica. Tambi??n anote el d??as si cambi?? la dosis de bowen medicamento. Nadir inforamaci??n debe incuirse en los registros que sada de bowen presi??n arterial para que le ayude a bowen proveedor de atenci??n m??dica a evaluar qu?? busch gail est??n funcionando los cambios en el medi camento. ??? Preg??ntele a bowen proveedor de atenci??n m??dica a qu?? niveles debe obtener ayuda de inmediato. ?? Last Reviewed Date: 2019 ?? 9120-1064 [employer]. Todos los derechos reservados. Esta informaci??n no pretende sustituir la atenci??n m??dica profesional. S??lo bowen m??dico puede diagnosticar y tratar un problema de jaylen. ?? * Gillian Vance RN: PERFORM Event Display: Patient Education Leaflets Authored Date: [id number] Understanding Preeclampsia ?? Qu?? es la Preeclampsia - Video Con paulino video vas a aprender cu??les son los riesgos de la preeclampsia, vinny s??ntomas y lo que puedes hacer para reducir tu riesgo de esta seria condici??n. To view the video go to this web address: [email or web address] Or, scan this QR code with your smart phone ?? [facility] ?? Patient Care team information Care Team Personnel Name: Not on Staff, PCP Position: S Physician (General Medicine) Member Role: PCP Care Team Related Persons Name: ARIC MARTEL Address: home [address] [place] [address] Name: KAT THOMPSONEN Address: [address] Address: home [address] [place] [address] [place] Name: STATES, NO ONE
--- OUTSIDE RECORDS SUMMARY | 2024-05-03 10:20 | XMS_ITS | Continuity of Care Document ---
Author Organization [facility] Address [address] [place] [address]- Care Team Providers Care General Labor Forklift Operator Name Role Phone Desire Mejia DO Primary Care Physician [place] [facility] [place] Date(s): 12/06/19 - 08/01/[address] [address]- [facility] Attending Physician: Not on Staff, Attending MD [...]
--- OUTSIDE RECORDS SUMMARY | 2024-05-03 10:20 | XMS_ITS | Continuity of Care Document ---
Author Organization [facility] Address [address] [place] [address]- Care Team Providers Care Servicing Manager Name Role Phone Not on Staff, PCP Primary Care Physician Unavail able [place] [facility] [place](s): 10/24/22 - 11/23/[address] [address]- Allergies, Adverse Reactions, Alerts Substance Reaction Severity Status morphine rash Active Immunizations Given and Recorded Vaccine Date Status Refusal Reason tetanus/diphtheria/pertussis, acel(Tdap) 07/23/19 Given Medications aspirin 81 mg oral delayed release tablet 2 tablet = 162 mg, By Mouth, Daily, # 90 tablet, 0 Refills, Maintenance, 10/21/22 14:56:00 EST, CR Tablet, [facility]/pharmacy #[id number], Partial fill upon patient request if the prescription is for a schedule II opioid drug., 152.4, cm, 10/21/22 14:24:00 EST, H... Start Date: 10/21/22 Status: Ordered NIFEdipine 60 mg oral tablet, extended release 60 mg, 1, tablet, By Mouth, Daily, # 90 tablet, Refills 0, Tot. Refills 0, Maintenance, 10/21/22 15:04:00 EST, Route to Pharmacy Electronically, [facility]/pharmacy #[id number], Partial fill upon patient request if the prescription is for a schedule II opioid drug... Start Date: 10/21/22 Status: Ordered Problem List Condition Confirmation Course Effective Dates Status Health St atus Informant Depression Confirmed Active Marijuana use last used Jul 2022 Confirmed Active HIstory of GERD (gastroesophageal reflux disease) Confirmed Active Hx of migraines Confirmed Active History of severe pre-eclampsia Confirmed Active Chronic hypertension Confirmed Active Obese class I Confirmed Active Obesity during Confirmed Active Social History Social History Type Response Smoking Status Never (less than 100 in lifetime) entered on: 09/19/22 Sex Patient Care team information Care Team Personnel Name: Not on Staff, PCP Position: S Physician (General Medicine) Member Role: PCP Care Team Related Persons Name: ARIC MARTEL Address: home [address] [place] [address] Name: THOMPSON, MARISA Address: [address] Address: home [address] [place] [address] [place] Name: STATES, NO ONE
--- OUTSIDE RECORDS SUMMARY | 2024-05-03 10:20 | XMS_ITS | Continuity of Care Document ---
Author Organization [facility] Address [address] [place] [address]- Care Team Providers Care Brazing Machine Operator Automatic Name Role Phone Desire Mejia DO Primary Care Physician [place] [facility] [place] 08/25/20 - 09/24/[address] [address]- [facility] Attending Physician: Evelin Boston Admitting Physician: Evelin Boston Referring Physician: Evelin Boston Allergies, Adverse Reactions, Alerts Substance Reaction Severity [...]
--- OUTSIDE RECORDS SUMMARY | 2024-05-03 10:20 | XMS_ITS | Continuity of Care Document ---
Author Organization [facility] Address [address] [place] [address]- Care Team Providers Care Dry Kiln Operator Helper Name Role Phone Not on Staff, PCP Primary Care Physician Unavail able Encounter [facility] [place] Date(s): 08/23/22 - 09/22/[address] [address]- Allergies, Adverse Reactions, Alerts Substance Reaction Severity [...] 6 capsules/day Start Date: 09/09/19 Status: Ordered NIFEdipine = 30 mg, By Mouth, Daily, 0 Refills, Maintenance, 09/19/22 9:47:00 EDT, Partial fill upon patient request if the prescription is for a schedule II opioid drug. Start Date: 09/19/22 Status: Ordered Multivitamins with Folic Acid 1 mg oral tablet 1 tablet, By Mouth, Daily, # 90 tablet, 2 Refills, Maintenance, 03/08/19 14:50:06 EDT, Tablet, 1 tablet By Mouth Daily Start Date: 03/08/19 Status: Ordered Problem List Condition Confirmation Course Effective Dates Status Health St atus Informant Depression Confirmed Active Marijuana use last used Jul 2022 Confirmed Active HIstory of GERD (gastroesophageal reflux disease) Confirmed Active Hx of migraines Confirmed Active History of severe pre-eclampsia Confirmed Active Chronic hypertension Confirmed Active Obesity during Confirmed Active Social History Social History Type Response Smoking Status Never (less than 100 in lifetime) entered on: 09/19/22 Sex Patient Care team information Personnel Name: Not on Staff, PCP
--- OUTSIDE RECORDS SUMMARY | 2024-05-03 10:20 | XMS_ITS | Continuity of Care Document ---
Author Organization [facility] Address [address] [place] [address]- Care Team Providers Care Central Station Operator Name Role Phone Not on Staff, PCP Primary Care Physician Unavail able [place] [facility] [place] Date[place] 04/06/23 - 05/06/[address] [address]- Attending Physician: Evelin Boston Admitting Physician: AdmEvelin ortiz Referring Physician: AdmtrEvelin Allergies, Adverse Reactions, Alerts [...] give 325mg per patient preference and re-dose [id number] within 4 hours, if needed. Patient should only receive a total of 650mg of Acetaminophen every 4 hours., # 50 tablet, Refills 0, Tot. Refills 0... Start Date: 04/01/23 Status: Ordered Aspirin Low Dose 81 mg oral delayed release tablet 2 tablet, By Mouth, Daily, # 60 tablet, 6 Refills, Maintenance, 12/16/22 14:51:00 EST, [facility], 152.4, cm, 11/18/22 10:14:00 EST, Height [...] 04/01/23 9:36:00 EDT, Route to Pharmacy Electronically, [facility]/pharmacy #[id number], Partial fill upon patient request if the prescription is for a schedule II opioid drug... Start Date: 04/01/23 Status: Ordered ferrous sulfate 325 mg oral enteric coated tablet 325 mg, 1, tablet, By Mouth, Daily, # 90 tablet, Refills 1, Tot. Refills 1, Maintenance, 04/01/23 18:33:00 EDT, Route to Pharmacy Electronically, [facility]/pharmacy #[id number], Partial fill upon patient requestif the [...] 04/01/23 9:36:00 EDT, Route to Pharmacy Electronically, [facility]/pharmacy #[id number], Partial fill upon patient request if [...] 100 in lifetime) entered on: 09/19/22 Sex EKG study * Event Display: EKG Authored Date: Patient Care team information Care Team Personnel Name: Not on Staff, PCP Position: S Physician (General Medicine) Member Role: PCP Care Team Related Persons Name: ARIC MARTEL Address: home [address] [place] [address] Name: MARISA THOMPSON Address: [address] Address: home [address], [place] [address] [place] Name: SAM THOMPSON Address: home [address] [address] Name: EDUIN THOMPSON Address: [address] Address: home [address] [place] [address] [place] Name: STATES, NO ONE
--- OUTSIDE RECORDS SUMMARY | 2024-05-03 10:20 | XMS_ITS | Continuity of Care Document ---
Author Organization [facility] Address [address] [place] [address]- Care Team Providers Care Nylon Operator Name Role Phone Desire Mejia DO Primary Care Physician Encounter [facility] [place] Date(s): 05/27/20 - 09/24/[address] [address]- [facility] Attending Physician: Not on Staff, Attending MD Referring Physician: Desire Mejia DO Allergies, Adverse Reactions, Alerts Substance Reaction [...]
--- OUTSIDE RECORDS SUMMARY | 2024-05-03 10:20 | XMS_ITS | Continuity of Care Document ---
Author Organization [facility] Address [address] [place] [address]- Care Team Providers Care Certified Juvenile Probation Officer Name Role Phone Desire Mejia DO Primary Care Physician En[place] [facility] [place] Date(s): 12/23/19 - 02/28/20 [facility] [address] [place] [address]- [facility] Attending Physician: Not on Staff, Attending [...]
--- OUTSIDE RECORDS SUMMARY | 2024-05-03 10:20 | XMS_ITS | Continuity of Care Document ---
Author Organization [facility] Address [address] [place] [address]- Care Team Providers Care Forensic Structural Engineer Name Role Phone Not on Staff, PCP Primary Care Physician Unavail able Encounter [facility] [place] Date(s): 02/07/23 - 03/09/[address] [address]- Allergies, Adverse Reactions, Alerts Substance Reaction Severity [...] tablet, 6 Refills, Maintenance, 12/16/22 14:51:00 EST, [facility], 152.4, cm, 11/18/22 10:14:00 EST, [...] 02/15/23 14:41:00 EDT, Route to Pharmacy Electronically, [facility], Partial fill upon patient request if [...] Personnel Name: Not on Staff, PCP Position: [facility] Physician (General Medicine) Member Role: PCP Care Team Related Persons Name: ARIC MARTEL Address: home [address] [place] [address] Name: MARISA THOMPSON Address: [address] Address: home [address] [place] [address] Name: STATES, NO ONE
--- OUTSIDE RECORDS SUMMARY | 2024-05-03 10:20 | XMS_ITS | Continuity of Care Document ---
Author Organization [facility] Address [address] [place] [address]- Care Team Providers Care Fashion Patternmaker Name Role Phone Not on Staff, PCP Primary Care Physician Unavail able Encounter [facility] [place] Date(s): 02/17/23 - 03/19/23 [facility] [address] [place] [address] Attending Physician: Evelin Boston Admitting Physician: Evelin [...] tablet, 6 Refills, Maintenance, 12/16/22 14:51:00 EST, [facility], 152.4, cm, 11/18/22 10:14:00 EST, [...] 02/15/23 14:41:00 EDT, Route to Pharmacy Electronically, [facility], Partial fill upon patient request [...] Personnel Name: Not on Staff, PCP Position: [facility] Physician (General Medicine) Member Role: PCP Care Team Related Persons Name: ARIC MARTEL Address: home [address] [place] [address] Name: MARISA THOMPSON Address: [address] Address: home [address] [place] [address] Name: PT STATES, NO ONE
--- OUTSIDE RECORDS SUMMARY | 2024-05-03 10:20 | XMS_ITS | Continuity of Care Document ---
Author Organization [facility] Address [address] [place] [address]- Care Team Providers Care Fire Pot Operator Name Role Phone Desire Mejia DO Primary Care Physician Encounter [facility] [place] Date(s): 08/04/21 - 09/03/21 [facility] [address] [place] [id number] Allergies, Adverse Reactions, Alerts Substance Reaction Severity [...]
--- OUTSIDE RECORDS SUMMARY | 2024-05-03 10:20 | XMS_ITS | Continuity of Care Document ---
Author Organization [facility] Address [address] [place] [address]- Care Team Providers Care Hemodialysis Rn Name Role Phone Desrie Mejia DO Primary Care Physician ( [phone] Encounter [facility] [place] Date(s): 10/02/19 - 12/13/[address] [address]- [facility] Attending Physician: Not on [...]
--- OUTSIDE RECORDS SUMMARY | 2024-05-03 10:20 | XMS_ITS | Continuity of Care Document ---
Author Organization [facility] Address [address] [place] [address]- Care Team Providers Care Publication Distributor Name Role Phone Not on Staff, PCP Primary Care Physician Unavail able [place] [facility] [place] - 05/25/[address] [address]- Attending Physician: Not on Staff, Attending MD [...] give 325mg per patient preference and re-dose [id number] within 4 hours, if needed. Patient should only receive a total of 650mg of Acetaminophen every 4 hours., # 50 tablet, Refills 0, Tot. Refills 0... Start Date: 04/01/23 Status: Ordered Aspirin Low Dose 81 mg oral delayed release tablet 2 tablet, By Mouth, Daily, # 60 tablet, 6 Refills, Maintenance, 12/16/22 14:51:00 EST, [facility], 152.4, cm, 11/18/22 10:14:00 EST, [...] 04/01/23 9:36:00 EDT, Route to Pharmacy Electronically, [facility]/pharmacy #[id number], Partial fill upon patient request if the prescription is for a schedule II opioid drug... Start Date: 04/01/23 Status: Ordered ferrous sulfate 325 mg oral enteric coated tablet 325 mg, 1, tablet, By Mouth, Daily, # 90 tablet, Refills 1, Tot. Refills 1, Maintenance, 04/01/23 18:33:00 EDT, Route to Pharmacy Electronically, [facility]/pharmacy #[id number], Partial fill upon patient [...] 04/01/23 9:36:00 EDT, Route to Pharmacy Electronically, [facility]/pharmacy #[id number], Partial fill upon patient [...] ARIC MARTEL Address: home [address] [place] [address] Name: MARISA THOMPSNO Address: [address] Address: home [address] [place] [address] [place] Name: SAM THOMPSON Address: home [address] [place] [address] Name: EDUIN THOMPSON Address: [address] Address: [address] [address] [place] Name: STATES, NO ONE
--- OUTSIDE RECORDS SUMMARY | 2024-05-03 10:20 | XMS_ITS | Continuity of Care Document ---
Author Organization [facility] Address [address] [place] [address]- Care Team Providers Care Stock Hanger Name Role Phone Not on Staff, PCP Primary Care Physician Unavail able [place] [facility] [place] 04/04/23 - 06/08/[address] [address]- Attending Physician: Not on Staff, Attending MD [...] give 325mg per patient preference and re-dose [id number] within 4 hours, if needed. Patient should only receive a total of 650mg of Acetaminophen every 4 hours., # 50 tablet, Refills 0, Tot. Refills 0... Start Date: 04/01/23 Status: Ordered Aspirin Low Dose 81 mg oral delayed release tablet 2 tablet, By Mouth, Daily, # 60 tablet, 6 Refills, Maintenance, 12/16/22 14:51:00 EST, [facility], 152.4, cm, 11/18/22 10:14:00 EST, [...] 04/01/23 9:36:00 EDT, Route to Pharmacy Electronically, [facility]/pharmacy #[id number], Partial fill upon patient request if the prescription is for a schedule II opioid drug... Start Date: 04/01/23 Status: Ordered ferrous sulfate 325 mg oral enteric coated tablet 325 mg, 1, tablet, By Mouth, Daily, # 90 tablet, Refills 1, Tot. Refills 1, Maintenance, 04/01/23 18:33:00 EDT, Route to Pharmacy Electronically, [facility]/pharmacy #[id number], Partial fill upon patient [...] 04/01/23 9:36:00 EDT, Route to Pharmacy Electronically, [facility]/pharmacy #[id number], Partial fill upon patient [...] PCP Care Team Related Persons Name: ARIC AMRTEL Address: home [address] [place] [address] Name: MARISA THOMPSON Address: [address] Address: home [address] [place] [address] [place] Name: SAM THOMPSON Address: home [address] [place] [address] Name: EDUIN THOMPSON Address: [address] Address: home [address] [address] [place] Name: STATES, NO ONE
--- OUTSIDE RECORDS SUMMARY | 2024-05-03 10:20 | XMS_ITS | Continuity of Care Document ---
Author Organization [facility] Address [address] [place] [address]- Care Team Providers Care Product Line Manager Name Role Phone Not on Staff, PCP Primary Care Physician Unavail able [place] [facility] [place]/23 - 02/24/[address] [address] Discharge Disposition: A-D/C Walkout Attending Physician: Elisha Sun MD Admitting Physician: Elisha Sun MD Referring Physician: Elisha Sun MD Allergies, Adverse Reactions, Alerts Substance [...] tablet, 6 Refills, Maintenance, 12/16/22 14:51:00 EST, [facility], 152.4, cm, 11/18/22 10:14:00 EST, [...] 02/15/23 14:41:00 EDT, Route to Pharmacy Electronically, [facility], Partial fill upon patient request if the prescription is for a schedule II... Start Date: 02/15/23 Status: Ordered Reglan 10 mg oral tablet 1 tablet = 10 mg, By Mouth, 4 times a day, for 10 days, # 40 tablet, 0 Refills, Acute 03/04/23 10:25:00 EDT, 02/22/23 10:25:00 EDT, Tablet, [facility], Partial fill upon patient request [...] Persons Name: ARIC MARTEL Address: home [address] [place] [address] Name: MARISA THOMPSON Address: [address] Address: home [address] [place] [address] [place] Name: STATES, NO ONE
--- OUTSIDE RECORDS SUMMARY | 2024-05-03 10:21 | XMS_ITS | Continuity of Care Document ---
Author Organization [facility] Address [address] [place] [address]- Care Team Providers Care Drop Man Name Role Phone Not on Staff, PCP Primary Care Physician Unavail able Encounter [facility] Date(s): 03/29/23 - 05/04/[address] [address]- Attending Physician: Tiana De Leon MD Admitting [...] give 325mg per patient preference and re-dose [id number] within 4 hours, if needed. Patient should only receive a total of 650mg of Acetaminophen every 4 hours., # 50 tablet, Refills 0, Tot. Refills 0... Start Date: 04/01/23 Status: Ordered Aspirin Low Dose 81 mg oral delayed release tablet 2 tablet, By Mouth, Daily, # 60 tablet, 6 Refills, Maintenance, 12/16/22 14:51:00 EST, [facility], 152.4, cm, 11/18/22 10:14:00 [...] 04/01/23 9:36:00 EDT, Route to Pharmacy Electronically, [facility]/pharmacy #[id number], Partial fill upon patient request if the prescription is for a schedule II opioid drug... Start Date: 04/01/23 Status: Ordered ferrous sulfate 325 mg oral enteric coated tablet 325 mg, 1, tablet, By Mouth, Daily, # 90 tablet, Refills 1, Tot. Refills 1, Maintenance, 04/01/23 18:33:00 EDT, Route to Pharmacy Electronically, [facility]/pharmacy #[id number], Partial fill upon patient requestif the [...] 04/01/23 9:36:00 EDT, Route to Pharmacy Electronically, [facility]/pharmacy #[id number], Partial fill upon patient request if [...] Related Persons Name: ARIC MARTEL Address: home [address] [place] [address] [address] [place] [address] Name: MARISA THOMPSON Address: [address] Address: home [address] [address] [place] Name: SAM TH[place]ON Address: home [address] [place] [address] Name: EDUIN [place] Address: [address] Address: home [address] [address] [place] Name: STATES, NO ONE
--- OUTSIDE RECORDS SUMMARY | 2024-05-03 10:21 | XMS_ITS | Continuity of Care Document ---
Author Organization [facility] Address [address] [place] [address]- Care Team Providers Care Aircraft Inspector Name Role Phone Not on Staff, PCP Primary Care Physician Unavail able Encounter [facility] [place] Date(s): 02/13/23 - 05/25/[address] [address]- Attending Physician: Not on Staff, Attending MD [...] give 325mg per patient preference and re-dose [id number] within 4 hours, if needed. Patient should only receive a total of 650mg of Acetaminophen every 4 hours., # 50 tablet, Refills 0, Tot. Refills 0... Start Date: 04/01/23 Status: Ordered Aspirin Low Dose 81 mg oral delayed release tablet 2 tablet, By Mouth, Daily, # 60 tablet, 6 Refills, Maintenance, 12/16/22 14:51:00 EST, [facility], 152.4, cm, 11/18/22 10:14:00 EST, [...] 04/01/23 9:36:00 EDT, Route to Pharmacy Electronically, [facility]/pharmacy #[id number], Partial fill upon patient request if the prescription is for a schedule II opioid drug... Start Date: 04/01/23 Status: Ordered ferrous sulfate 325 mg oral enteric coated tablet 325 mg, 1, tablet, By Mouth, Daily, # 90 tablet, Refills 1, Tot. Refills 1, Maintenance, 04/01/23 18:33:00 EDT, Route to Pharmacy Electronically, [facility]/pharmacy #[id number], Partial fill upon patient requestif the [...] 04/01/23 9:36:00 EDT, Route to Pharmacy Electronically, [facility]/pharmacy #[id number], Partial fill upon patient request if [...] Persons Name: ARIC MARTEL Address: home [address] [place] [address] Name: MARISA THOMPSON Address: [address] Address: home [address] [place] [address] [place] Name: SAM THOMPSON Address: home [address] [place] [address] Name: EDUIN THOMPSON Address: [address] Address: [address] [address] [place] Name: STATES, NO ONE
--- OUTSIDE RECORDS SUMMARY | 2024-05-03 10:21 | XMS_ITS | Continuity of Care Document ---
Author Organization [facility] Address [address] [place] [address]- Care Team Providers Care Corn Chip Maker Name Role Phone Not on Staff, PCP Primary Care Physician Unavail able Encounter [facility] [place] Date(s): 05/09/23 - 06/08/[address] [address]- Attending Physician: Evelin [place] Admitting Physician: Evelin [...] give 325mg per patient preference and re-dose [id number] within 4 hours, if needed. Patient should only receive a total of 650mg of Acetaminophen every 4 hours., # 50 tablet, Refills 0, Tot. Refills 0... Start Date: 04/01/23 Status: Ordered Aspirin Low Dose 81 mg oral delayed release tablet 2 tablet, By Mouth, Daily, # 60 tablet, 6 Refills, Maintenance, 12/16/22 14:51:00 EST, [facility], 152.4, cm, 11/18/22 10:14:00 EST, [...] 04/01/23 9:36:00 EDT, Route to Pharmacy Electronically, [facility]/pharmacy #[id number], Partial fill upon patient request if the prescription is for a schedule II opioid drug... Start Date: 04/01/23 Status: Ordered ferrous sulfate 325 mg oral enteric coated tablet 325 mg, 1, tablet, By Mouth, Daily, # 90 tablet, Refills 1, Tot. Refills 1, Maintenance, 04/01/23 18:33:00 EDT, Route to Pharmacy Electronically, [facility]/pharmacy #[id number], Partial fill upon patient requestif the [...] 04/01/23 9:36:00 EDT, Route to Pharmacy Electronically, [facility]/pharmacy #[id number], Partial fill upon patient request if [...] Persons Name: ARIC MARTEL Address: home [address] [place] Name: MARISA THOMPSON Address: [address] Address: home [address] [address] [place] Name: SAM THOMPSON Address: home [address] [address] Name: EDUIN THOMPSON Address: [address] Address: home [address] [place] [address] [place] Name: STATES, NO ONE
--- OUTSIDE RECORDS SUMMARY | 2024-05-03 10:21 | XMS_ITS | Continuity of Care Document ---
Author Organization [facility] ter Address [address] [place] [address]- Care Team Providers Care Launch Steward Name Role Phone Desire Mejia DO Primary Care Physician Encounter [facility] Date(s): 01/20/20 - 03/11/[address] [address]- [facility] Attending Physician: Nan Palomo MD Admitting Physician: Nan Palomo MD Allergies, Adverse Reactions, Alerts Substance Reaction [...] during (Confirmed) Active Request for sterilization(Confirmed) Active Vital Signs Most recent to oldest [Reference Range]: 1 Height 152.40 cm (02/06/20 4:24 PM) Weight 81.36 kg (02/06/20 4:24 PM) Body Mass Index [18.5-24.99] 35.03 *>HHI* (02/06/20 4:24 PM) Dry Weight 81.36 kg (02/06/20 4:24 PM) Weight Obtained Via Patient/family state d (02/06/20 4:24 PM) Dry Weight Obtained Via Patient/family s tated (02/06/20 4:24 PM) Social History Social History Type Response Smoking Status Never (less than 100 in lifetime); Tobacco user in household: Yes entered on: 04/02/19 Sex
--- OUTSIDE RECORDS SUMMARY | 2024-05-03 10:21 | XMS_ITS | Continuity of Care Document ---
Author Organization [facility] ter Address [address] [place] [address]- Care Team Providers Care Flight Crew Ordnanceman Name Role Phone Not on Staff, PCP Primary Care Physician Unavail able Encounter [facility] Date(s): 03/14/23 - 05/12/[address] [address]- Attending Physician: Tolu Henriquez MD Referring Physician: Darryl Funk DO Allergies, Adverse Reactions, Alerts Substance Reaction [...] give 325mg per patient preference and re-dose [id number] within 4 hours, if needed. Patient should only receive a total of 650mg of Acetaminophen every 4 hours., # 50 tablet, Refills 0, Tot. Refills 0... Start Date: 04/01/23 Status: Ordered Aspirin Low Dose 81 mg oral delayed release tablet 2 tablet, By Mouth, Daily, # 60 tablet, 6 Refills, Maintenance, 12/16/22 14:51:00 EST, [facility], 152.4, cm, 11/18/22 10:14:00 EST, [...] 04/01/23 9:36:00 EDT, Route to Pharmacy Electronically, [facility]/pharmacy #[id number], Partial fill upon patient request if the prescription is for a schedule II opioid drug... Start Date: 04/01/23 Status: Ordered ferrous sulfate 325 mg oral enteric coated tablet 325 mg, 1, tablet, By Mouth, Daily, # 90 tablet, Refills 1, Tot. Refills 1, Maintenance, 04/01/23 18:33:00 EDT, Route to Pharmacy Electronically, [facility]/pharmacy #[id number], Partial fill upon patient [...] 04/01/23 9:36:00 EDT, Route to Pharmacy Electronically, [facility]/pharmacy #[id number], Partial fill upon patient [...] Role: PCP Care Team Related Persons Name: MARTEL ARIC Address: home [address] [place], [place] Name: MARISA THOMPSON Address: [address] Address: home [address] [address] [place] Name: SAM THOMPSON Address: home [address] [place] [address] Name: EDUIN THOMPSON Address: [address] Address: home [address] [address] [place] Name: STATES, NO ONE
--- OUTSIDE RECORDS SUMMARY | 2024-05-03 10:21 | XMS_ITS | Continuity of Care Document ---
Author Organization [facility] Address [address] [place] [address]- Care Team Providers Care Business Analyst Intern Name Role Phone Not on Staff, PCP Primary Care Physician Unavail able Encounter [facility] Date(s): 04/13/23 - 05/13/[address] [address]- Allergies, Adverse Reactions, Alerts Substance Reaction Severity [...] give 325mg per patient preference and re-dose [id number] within 4 hours, if needed. Patient should only receive a total of 650mg of Acetaminophen every 4 hours., # 50 tablet, Refills 0, Tot. Refills 0... Start Date: 04/01/23 Status: Ordered Aspirin Low Dose 81 mg oral delayed release tablet 2 tablet, By Mouth, Daily, # 60 tablet, 6 Refills, Maintenance, 12/16/22 14:51:00 EST, [facility], 152.4, cm, 11/18/22 10:14:00 EST, [...] Related Persons Name: MARTELARIC Address: home [address] [facility] [facility] [address] [place] [address] Name: MARISA THOMPSON Address: [address] Address: home [address] [address] [place] Name: SAM THOMPSON Address: home [address] [facility] [address] [place] [address] Name: EDUIN THOMPSON Address: [address] Address: home [address] [address] [place] Name: STATES, NO ONE
--- OUTSIDE RECORDS SUMMARY | 2024-05-03 10:21 | XMS_ITS | Continuity of Care Document ---
Author Organization [facility] Address [address] [place] [address]- Care Team Providers Care Stand Grinder Name Role Phone Not on Staff, PCP Primary Care Physician Unavail able Encounter [facility] Date(s): 10/24/22 - 11/23/[address] [address]- Allergies, Adverse Reactions, Alerts Substance Reaction Severity Status morphine rash Active Immunizations Given and Recorded Vaccine Date Status Refusal Reason tetanus/diphtheria/pertussis, acel(Tdap) 07/23/19 Given Medications aspirin 81 mg oral delayed release tablet 2 tablet = 162 mg, By Mouth, Daily, # 90 tablet, 0 Refills, Maintenance, 10/21/22 14:56:00 EST, CR Tablet, [facility]/pharmacy #[id number], Partial fill upon patient request if the prescription is for a schedule II opioid drug., 152.4, cm, 10/21/22 14:24:00 EST, H... Start Date: 10/21/22 Status: Ordered NIFEdipine 60 mg oral tablet, extended release 60 mg, 1, tablet, By Mouth, Daily, # 90 tablet, Refills 0, Tot. Refills 0, Maintenance, 10/21/22 15:04:00 EST, Route to Pharmacy Electronically, [facility]/pharmacy #[id number], Partial fill upon patient request if [...] Persons Name: ARIC MARTEL Address: home [address] [place] [address] Name: [place], MARISA Address: [address] Address: home [address] [facility] [address] [address] [place] [address] [place] Name: STATES, NO ONE
--- OUTSIDE RECORDS SUMMARY | 2024-05-03 10:21 | XMS_ITS | Continuity of Care Document ---
Author Organization [facility] ter Address [address] [place] [address]- Care Team Providers Care Apprentice Architect Name Role Phone Desire Mejia DO Primary Care Physician Encounter [facility] Date(s): 01/07/20 - 02/09/[address] [address]- [facility] Attending Physician: Taniya Albert MD Allergies, Adverse Reactions, Alerts Substance Reaction [...]
--- OUTSIDE RECORDS SUMMARY | 2024-05-03 10:21 | XMS_ITS | Continuity of Care Document ---
Author Organization [facility] ter Address [address] [place] [address]- Care Team Providers Care Manager Program Management Name Role Phone Not on Staff, PCP Primary Care Physician Unavail able Encounter [facility] Date(s): 03/17/23 - 03/17/[address] [address] Discharge Disposition: A-D/C Home Attending Physician: Tinaa De Leon MD Admitting Physician: Tiana De [...] tablet, 6 Refills, Maintenance, 12/16/22 14:51:00 EST, [facility], 152.4, cm, 11/18/22 10:14:00 EST, Height [...] 02/15/23 14:41:00 EDT, Route to Pharmacy Electronically, [facility], Partial fill upon patient request if [...] Persons Name: ARIC MARTEL Address: home [address] [place] [address] Name: MARISA THOMPSON Address: [address] Address: home [address] [place] [address] [place] Name: PT STATES, NO ONE
== END 2024-05-01 12:54 | disposition home or self-care (01) ==
PROVIDERS: Emergency Provider Emergency Medicine
DX: I10 Essential (primary) hypertension (principal); R51.9 Headache, unspecified
CPT/HCPCS: 36415; 80048; 81003; 81025; 84484; 85025; 93005; 99283; 99284

== ENCOUNTER → 2024-05-01 10:09 | Outpatient (BNV) | payer MEDICAID, SELFPAY | PROVIDERS: Emergency Provider Emergency Medicine; Visit Provider Internal Medicine Cardiovascular Disease | DX: R94.31 Abnormal electrocardiogram [ECG] [EKG] (principal) | CPT/HCPCS: 93010 ==

== ENCOUNTER 2024-05-24 09:16 | Outpatient (REF) | payer MEDICAID, SELFPAY ==
--- NOTE | ~2024-05-24 | XR_ITS ---
EXAMINATION: XR LUMBOSACRAL SPINE CLINICAL INFORMATION: Worsening low back pain COMPARISON: None available. TECHNIQUE: Three views of the lumbosacral spine. FINDINGS: The vertebral bodies and posterior elements are normal. The disc spaces are preserved and the vertebral alignment is normal. The paraspinal soft tissues are normal. XR/XR lumbar spine 2-3V IMPRESSION: Unremarkable examination.
== END 2024-05-24 09:17 | disposition home or self-care (01) ==
LOC: HO.HHCX 09:16
PROVIDERS: Visit Provider Emergency Medicine
DX: M54.50 Low back pain, unspecified (principal); G89.29 Other chronic pain
CPT/HCPCS: 72100

== ENCOUNTER 2024-08-08 08:19 | Outpatient (REF) | payer MEDICAID, SELFPAY ==
[2024-08-08 11:31] LABS: Hematocrit 39.9 % (37.0-47.0); Hemoglobin 13.4 g/dl (12.0-16.0); Mean Corpuscular HGB Conc 33.6 g/dl (31.0-35.0); Mean Corpuscular Hemoglobin 28.9 pg (27.0-33.0); Mean Corpuscular Volume 86.2 fL (80.0-98.0); Mean Platelet Volume 10.6 fL (9.4-12.3); Platelet Count 292 X10*3/uL (160-400); Red Blood Count 4.63 X10*6/uL (4.20-5.50); Red Cell Distribution Width 12.9 % (11.0-16.0)
[2024-08-08 11:39] LABS: Estimated Average Glucose 94 mg/dL; Hemoglobin A1c % 4.9 % (<6.0)
[2024-08-08 11:52] LABS: Alanine Aminotransferase 14 U/L (0-31); Albumin Level 4.3 g/dL (3.5-5.0); Alkaline Phosphatase 42 U/L (39-117); Anion Gap 11 (12-20); Aspartate Amino Transferase 14 U/L (5-31); Bilirubin Total 0.3 mg/dL (0.0-1.0); Blood Urea Nitrogen 18 mg/dL (9-16); Calcium 9.4 mg/dL (8.4-10.2); Carbon Dioxide 26 mmol/L (22-29); Chloride 109 mmol/L (96-108); Cholesterol 169 mg/dL (<200); Estimated Glomerular Filt Rate > 60; Glucose Random 89 mg/dL (60-115); HDL Cholesterol 47 mg/dL (>40); LDL Cholesterol Calculated 103 mg/dL (<100); Potassium 4.5 mmol/L (3.3-5.1); Sodium 141 mmol/L (135-145); Total Protein 7.3 g/dL (6.5-8.0); Triglycerides 99 mg/dL (<150)
[2024-08-08 12:00] LABS: Syphilis Screen Nonreactive (Nonreactive)
[2024-08-08 12:01] LABS: TSH reflex Free T4 0.53 uIU/mL (0.32-4.0)
[2024-08-08 12:16] LABS: HBS Num1 9.94 mIU/mL (0-7.99); HBc Num1 0.13 S/CO (0.00-0.79); HBsAGNum1 0.27 S/CO (0.00-0.99); HIV AB/AG Nonreactive (Nonreactive); HIV Num 1 0.06 S/CO (0.00-0.99); Hepatitis B Core Antibody Nonreactive (Nonreactive); Hepatitis B Surface Antigen Negative (Negative); ~HepC Num1 0.12 S/CO (0.00-0.79); ~Hepatitis C Antibody Nonreactive (Nonreactive)
[2024-08-08 13:06] LABS: HBS Num2 9.75 mIU/mL (0-7.99); HBS Num3 9.92 mIU/mL (0-7.99); ~Hepatitis B Surface Antibody GRAYZONE (Nonreactive)
== END 2024-08-08 08:20 | disposition home or self-care (01) ==
LOC: HO.HHCL 08:19
PROVIDERS: Visit Provider Student in an Organized Health Care Education/Training Program
DX: Z00.00 Encounter for general adult medical examination without abnormal findings (principal)
CPT/HCPCS: 36415; 80053; 80061; 82306; 83036; 84443; 85027; 86704; 86706; 86780; 86803; 87340; 87389

== ENCOUNTER 2025-04-01 09:54 | Outpatient (REF) | payer MEDICAID, SELFPAY ==
--- NOTE | ~2025-04-01 | XR_ITS ---
EXAMINATION: XR KNEE, LEFT CLINICAL INFORMATION: ongoing left knee pain COMPARISON: None available. TECHNIQUE: Three views of the left knee. FINDINGS: Mild sclerosis and the articular surface of the tibial plateau. No acute cortical disruption or malalignment. No lytic or blastic lesions. No suprapatellar bursa joint effusion. No metallic or radiopaque foreign body. XR/XR knee LT 3V IMPRESSION: Mild bicompartmental osteoarthrosis. Electronically signed by: Dao Cullen MD 04/01/2025 10:16 AM EDT
--- OUTSIDE RECORDS SUMMARY | 2025-04-01 11:07 | XMS_ITS | Encounter Summary ---
Author Organization [employer] Address [address] [place] [address] 7 [place] [address] Care Team Providers Care Seam Checker Name Role Phone Kait Hoff SUSAN Primary Care Provider [phone] Katie Jaffe MD Primary Care Pro vider Encounter Details Date Type Department Care Team (Late st Contact Info) Description 01/02/2023 Orders Only [facility] [address] [place], [place] [phone] Sammi Garner LPN Social History Tobacco Use Types Packs/Day Years Used Date Smoking Tobacco: Never Assessed Comments Unknown Sex and Gender Information Value Date Recorded Sex Assigned at Female 09/26/2022 10:29 AM EDT Legal Sex Female 10:29 AM EDT Gender Identity Female 09/26/2022 10:29 AM EDT Sexual Orientation Straight 09/26/2022 10 :29 AM EDT documented as of this encounter Plan of Treatment Upcoming Encounters Date Type Department Care Team (Late st Contact Info) Description 04/28/2025 10:30 AM EDT Procedure Visit [facility] [address] [place] [phone] Bria Brito CNM [address] [place] [phone] 06/10/2025 10:00 AM EDT Office Visit [facility] [address] [place] [phone] Katie Jaffe MD [address] [place], [place] [phone] documented as of this encounter Visit Diagnoses Not on filedocumented in this encounter Care Teams Seam Checker Relationship Specialty Start Date End Date Kait Hoff ANP [address] [place] [address] PCP - General Family Medicine 07/25/22 04/04/24 Katie Jaffe MD [address] [place] [phone] PCP - General Internal Medicine 04/05/24 documented as of this encounter
--- OUTSIDE RECORDS SUMMARY | 2025-04-01 11:07 | XMS_ITS | Encounter Summary ---
Author Organization [employer] Address [address] [place] [address] [address] [place] [address] Care Team Providers Care Agricultural Purchasing Agent Name Role Phone Katie Jaffe MD Primary Care Pro vider Reason for Visit * Reason Onset Date Comments Chart Prep 03/27/2025 Encounter Details Date Type Department Care Team ([facility] Contact Info) Description 03/27/2025 Telephone [facility] [address] [place] [address] Katie Jaffe MD [address] [place] [address] Chart Prep Social History Tobacco Use Types Packs/Day Years Used Date Smoking Tobacco: Never Passive Smoke Exposure: Never Smokeless Tobacco: Never Alcohol Use Standard Drinks/Week Comments Yes 0 (1 standard drink = 0.6 oz pur e alcohol) 3 times a week, 6 beers Alcohol Answer Date Recorded How often do you have a drink containing alcohol ? 1 10/10/2024 How many drinks containing a lcohol do you have on a typical day when you are drinking? 0 10/10/2024 How often do you have six or more drinks on one occasion? 1 10/10/2024 Depression Answer Date Recorded Patient Health Questionnaire-9 Score 9 06/20/2024 Patient Health Questionnaire-9 Score 9 06/20/2024 Last PHQ-9: Questionnaire Data Not on file 0 06/20/2024 Housing Stability Answer Date Recorded What is your housing situation today? I have donna valladares 02/08/[address] you li ve. Do you have problems with any of the following? None of the above 02/08/2024 Food Insecurity Answer Date Recorded Within the past 12 months, y ou worried that your food would run out before you got money to buy more: Never True 02/08/2024 Within the past 12 months,th e food you bought just didn't last and you didn't have enough money to get more: Never True Transportation Answer Date Recorded In the past 12 months, has l ack of transportation kept you from medical appts, meetings, work or from getting things needed for daily living? No 02/08/2024 Utilities Answer Date Recorded In the past 12 months, has t he electric, gas, oil or water company threatened to shut off services in your home? No 02/08/2024 Depression Answer Date Recorded Patient Health Questionnaire-2 Score 0 06/20/2024 Comments No Sex and Gender Information Value Date Recorded Sex Assigned at Female 09/26/2022 10:29 AM EDT Legal Sex Female 10:29 AM EDT Gender Identity Female 09/26/2022 10:29 AM EDT Sexual Orientation Straight 09/26/2022 10 :29 AM EDT documented as of this encounter Miscellaneous Notes * Telephone Encounter - Cristy Angelo [place] - 03/27/2025 2:29 PM EDT Chart Prep Labs: not applicable Images: not applicable Vaccines due: Covid Due, Hep B Due, and Flu Due Referrals: Not Applicable Screenings: PAP Overdue care gaps: SDOH and Oral Health documented in this encounter Plan of Treatment Upcoming Encounters Date Type Department Care Team (Late st Contact Info) Description 04/28/2025 10:30 AM EDT Procedure Visit [facility] [address] [place] [address] Bria Brito CNM [address] [place] [address] 06/10/2025 10:00 AM EDT Office Visit [facility] [address] [place] [phone] Katie Jaffe MD [address] [place] [address] documented as of this encounter Visit Diagnoses Not on filedocumented in this encounter Additional Health Concerns Assessment Noted Time PHQ-9 Depression Total Score: 9 06/20/20 24 10:23 AM EDT documented as of this encounter Care Teams Agricultural Purchasing Agent Relationship Specialty Start Date End Date Katie Jaffe MD [address] [place] [address] PCP - General Internal Medicine 04/05/24 documented as of this encounter
--- OUTSIDE RECORDS SUMMARY | 2025-04-01 11:07 | XMS_ITS | Encounter Summary ---
Author Organization [employer] Address [address] [place] [address] Care Team Providers Care Tung Nut Grower Name Role Phone Katie Jaffe MD Primary Care Pro vider Reason for Visit * Reason Onset Date Comments Med Refill 03/26/2025 Encounter Details Date Type Department Care Team ([facility] st Contact Info) Description 03/26/2025 Refill [facility] [address] [place], [place] [phone] Kaleb Lacy MD [address] [place] [address] Social History Tobacco Use Types Packs/Day Years [...] Description 04/28/2025 10:30 AM EDT Procedure Visit [facility] [address] [place] [phone] Bria Brito CNM [address] [place] [phone] 06/10/2025 10:00 AM EDT Office Visit [facility] [address] [place] [phone] Katie Jaffe MD [address] [place] [phone] documented as of this encounter Visit Diagnoses Not on filedocumented in this encounter Additional Health Concerns Assessment Noted Time PHQ-9 Depression Total Score: 9 06/20/20 24 10:23 AM EDT documented as of this encounter Care Teams Tung Nut Grower Relationship Specialty Start Date End Date Katie Jaffe MD [address] [place] [address] [phone] PCP - General Internal Medicine 04/05/24 documented as of this encounter
--- OUTSIDE RECORDS SUMMARY | 2025-04-01 11:07 | XMS_ITS | Encounter Summary ---
Author Organization [employer] Address [address] [place] [address] Care Team Providers Care Fire Investigation Lieutenant Name Role Phone Katie Jaffe MD Primary Care Pro vider Encounter Details Date Type Department Care Team (Latest Contact Info) Description 04/01/2025 Travel Social History Tobacco Use Types Packs/Day Years [...] housing situation today? I have donna valladares 04/01/[address] you li ve. Do you have problems with any of the following? None of the above 04/01/2025 Food Insecurity Answer Date Recorded Within the past 12 months, y ou worried that your food would run out before you got money to buy more: Never True 04/01/2025 Within the past 12 months,th e food you bought just didn't last and you didn't have enough money to get more: Never True 04/2025 Transportation Answer Date Recorded In the past 12 months, has l ack of transportation kept you from medical appts, meetings, work or from getting things needed for daily living? No 04/01/2025 Utilities Answer Date Recorded In the past 12 months, has t he electric, gas, oil or water company threatened to shut off services in your home? No 04/01/2025 Depression Answer Date Recorded Patient Health Questionnaire-2 Score 0 06/20/2024 Internet Access Answer Date Recorded Internet Access Q1 Yes 04/01/2025 Internet Access Q2 Not on file 04/01/2025 Comments No Sex and Gender Information Value [...] Description 04/28/2025 10:30 AM EDT Procedure Visit [facility] [address] [place] [address] Bria Brito CNM [address] [place] [address] 06/10/2025 10:00 AM EDT Office Visit [facility] [address] [place] [phone] Katie Jaffe MD [address] [place] [phone] documented as of this encounter Visit Diagnoses Not on filedocumented in this encounter Additional Health Concerns Assessment Noted Time PHQ-9 Depression Total Score: 9 06/20/20 24 10:23 AM EDT documented as of this encounter Care Teams Fire Investigation Lieutenant Relationship Specialty Start Date End Date Katie Jaffe MD [address] [place] [phone] PCP - General Internal Medicine 04/05/24 documented as of this encounter
--- OUTSIDE RECORDS SUMMARY | 2025-04-01 11:07 | XMS_ITS | Encounter Summary ---
Author Organization [employer] Address [address] [place] [address] Care Team Providers Care Vmware Consultant Name Role Phone Katie Jaffe MD Primary Care Pro vider Reason for Visit * Reason Onset Date Comments Med Refill 03/26/2025 Encounter Details Date Type Department Care Team (Late st Contact Info) Description 03/26/2025 Refill [facility] [address] [place] [address] Yuli Condon NP [address] [place] [address] Elevated blood pressure reading in office with diagnosis of hypertension Social History Tobacco Use Types Packs/Day Years [...] is your housing situation today? I have donnadavid valladares 02/08/[address] you [...] Description 04/28/2025 10:30 AM EDT Procedure Visit [facility] [address] [place] [phone] Bria Brito CNM [address] [place] [address] 06/10/2025 10:00 AM EDT Office Visit [facility] [address] [place] [phone] Katie Jaffe MD [address] [place] [phone] documented as of this encounter Visit Diagnoses Diagnosis Elevated blood pressure reading in office with diagnosis of hypertension documented in this encounter Additional Health Concerns Assessment Noted Time PHQ-9 Depression Total Score: 9 06/20/20 24 10:23 AM EDT documented as of this encounter Care Teams Vmware Consultant Relationship Specialty Start Date End Date Katie Jaffe MD [address] [place] [phone] PCP - General Internal Medicine 04/05/24 documented as of this encounter
--- OUTSIDE RECORDS SUMMARY | 2025-04-01 11:07 | XMS_ITS | Encounter Summary ---
Author Organization [employer] Address [address] [facility] 7t [place] [address] Care Team Providers Care Public Aid Eligibility Assistant Name Role Phone Katie Jaffe MD Primary Care Pro vider Reason for Referral * Consultation (Routine) - Closed Specialty Diagnoses / Procedures Referred By Contac t Referred To Contact Physical Therapy Diagnoses Chronic bilateral low back pain without sciatica Chronic right-sided low back pain without sciatica Kaleb Lacy MD [address] [place] [phone] Phone: tel: fax: [facility] [address] [place] [address] Phone: tel: fax: Referral ID Status Reason Start Date Expiration Date V isits Requested Visits Authorized [id number] Closed Specialty Services Required 05/28/2024 05/28/2025 20 20 Encounter Details Date Type Department Care Team (Late st Contact Info) Description 05/24/2024 Orders Only [facility] [address] [place], [place] [phone] Kaleb Lacy MD [address] [place], [place] [phone] Chronic bilateral low back pain without sciatica (Primary Dx); Chronic right-sided low back pain without sciatica Social History Tobacco Use Types Packs/Day Years Used Date Smoking Tobacco: Never Smokeless Tobacco: Never Housing Stability Answer Date Recorded What is [...] off services in your home? No 02/08/2024 Comments No Sex and Gender Information Value [...] Description 04/28/2025 10:30 AM EDT Procedure Visit [facility] [address] [place] [phone] Bria Brito CNM [address] [place] [phone] 06/10/2025 10:00 AM EDT Office Visit [facility] [address] [place] [phone] Katie Jaffe MD [address] [place] [phone] Scheduled Referrals Name Type Priority Associated Diagnoses Orde r Schedule Referral to Physical Therapy Outpatient Referral Routine Chronic bilateral low back pain without sciatica Chronic right-sided low back pain without sciatica Expected: 05/24/2024 (Approximate), Expires: 05/24/2025 documented as of this encounter Visit Diagnoses Diagnosis Chronic bilateral low back pain without sciatica- Primary Chronic right-sided low back pain without sciatica documented in this encounter Care Teams Public Aid Eligibility Assistant Relationship Specialty Start Date End Date Katie Jaffe MD [address] [place] [phone] PCP - General Internal Medicine 04/05/24 documented as of this encounter
--- OUTSIDE RECORDS SUMMARY | 2025-04-01 11:07 | XMS_ITS | Encounter Summary ---
Author Organization [employer] Address [address] [facility] 7t [place] [address] Care Team Providers Care Chicken And Fish Butcher Name Role Phone Katie Jaffe MD Primary Care Pro vider Reason for Visit * Reason Onset Date Comments Med Refill 03/26/2025 Encounter Details Date Type Department Care Team ([facility] st Contact Info) Description 03/26/2025 Refill [facility] [address] [place] [address] Kait Hoff, ANP [address] [place] [address] Social History Tobacco Use Types Packs/Day Years [...] the past 12 months, has t he Pact, gas, oil or water company threatened to [...] Description 04/28/2025 10:30 AM EDT Procedure Visit [facility] [address] [place] [phone] Bria Brito CNM [address] [place] [address] 06/10/2025 10:00 AM EDT Office Visit [facility] [address] [place] [phone] Katie Jaffe MD [address] [place] [phone] documented as of this encounter Visit Diagnoses Not on filedocumented in this encounter Additional Health Concerns Assessment Noted Time PHQ-9 Depression Total Score: 9 06/20/20 24 10:23 AM EDT documented as of this encounter Care Teams Chicken And Fish Butcher Relationship Specialty Start Date End Date Katie Jaffe MD [address] [place] [phone] PCP - General Internal Medicine 04/05/24 documented as of this encounter
--- OUTSIDE RECORDS SUMMARY | 2025-04-01 11:07 | XMS_ITS | Encounter Summary ---
Author Organization [employer] Address [address] [place] [address] [place] [address] Care Team Providers Care Forming Machine Tender Name Role Phone Katie Jaffe MD Primary Care Pro vider Reason for Referral * Consultation (Routine) - Pending Review Specialty Diagnoses / Procedures Referred By Margarita hu Referred To Contact Physical Therapy Diagnoses Left knee pain, unspecified chronicity Katie Jaffe MD [address] [place] [phone] Phone: tel: fax: Referral ID Status Reason Start Date Expiration Date Visits Requested Visits Authorized [id number] Pending Review Specialty Services Required 04/01/2025 04/01/2026 1 1 Encounter Details Date Type Department Care Team (Late st Contact Info) Description 04/01/2025 9:00 AM EDT Office Visit [facility] [address] [place] [address] [phone] Katie Jaffe MD [address] [place] [address] [phone] Spotting (Primary Dx); Dietary counseling; Exercise counseling; Elevated blood pressure reading in office with diagnosis of hypertension; Acute pain of left knee; Left knee pain, unspecified chronicity Social History Tobacco Use Types Packs/Day Years Used Date Smoking Tobacco: Never Passive Smoke Exposure: Never Smokeless Tobacco: Never Tobacco Cessation:Counseling Given: Not Answered Alcohol Use Standard Drinks/Week Comments Yes 0 [...] AM EDT documented as of this encounter Last Filed Vital Signs Vital Sign Reading Time Taken Comments Blood Pressure 126/90 04/01/2025 9:06 AM EDT Pulse 92 04/01/2025 9:06 AM EDT Temperature 36.5 ??C (97.7 ??F) 04/01/2025 9:06 AM ED T Respiratory Rate 20 04/01/2025 9:06 AM EDT Oxygen Saturation 98% 04/01/2025 9:06 AM EDT Inhaled Oxygen Concentration - - Weight 71 kg (156 lb 9.6 oz) 04/01/2025 9:06 AM EDT Height 152.4 cm (5') 04/01/2025 9:06 AM EDT Body Mass Index 30.58 04/01/2025 9:06 AM EDT documented in this encounter Plan of Treatment Upcoming Encounters Date Type Department Care Team (Late st Contact Info) Description 04/28/2025 10:30 AM EDT Procedure Visit [facility] [address] [place] [phone] Bria Brito CNM [address] [place] [address] 06/10/2025 10:00 AM EDT Office Visit [facility] [address] [place] [phone] Katie Jaffe MD [address] [place], [place] [phone] Scheduled Orders Name Type Priority Associated Diagnoses Orde r Schedule Comprehensive Metabolic Panel Lab Routine Elevated blood pressure reading in office with diagnosis of hypertension Expected: 04/15/2025 (Approximate), Expires: 04/01/2026 Scheduled Referrals Name Type Priority Associated Diagnoses Orde r Schedule Referral to Physical Therapy Outpatient Referral Routine Left knee pain, unspecified chronicity Expected: 04/01/2025 (Approximate), Expires: 04/01/2026 documented as of this encounter Procedures Procedure Name Priority Date/Time Associated Diagnosis Comments XR KNEE 3 VIEWS LEFT Routine 04/01/2025 9:54 AM EDT Acute pain of left knee POCT , URINE Routine 04/01/2025 9:30 AM EDT Spotting documented in this encounter Results * XR Knee 3 Views Left (04/01/2025 9:54 AM EDT) Anatomical Region Laterality Modality Lower Extremities, Knee Left Radiogra phic Imaging 04/01/2025 9:54 AM EDT Narrative 04/01/2025 10:19 AM EDT ?[facility] ?[address] ?[place] [address] ?XRay Report ? Signed ? Patient: Toro,Bryanna ?MR#: [id number] ?? [id number] ? : 1995 ?Acct:[id number] ? Age/Sex: 29 / F ?ADM Date: 04/01/25 ? Loc: HO.HHCX ? Attending Dr: Katie Escobar MD ? Ordering Physician: Katie Jaffe MD ?? Date of Service: 04/01/25 ?? Procedure(s): XR knee LT 3V ?? Accession Number(s): [id number] ? cc: Katie Jaffe MD ? EXAMINATION: ?? XR KNEE, LEFT ? CLINICAL INFORMATION: ?? ongoing left knee pain ? COMPARISON: ?? None available. ? TECHNIQUE: ?? Three views of the left knee. ? FINDINGS: ?? Mild sclerosis and the articular surface of the tibial plateau. No ?? acute cortical disruption or malalignment. No lytic or blastic lesions. ?? No suprapatellar bursa joint effusion. No metallic or radiopaque ?? foreign body. ? XR/XR knee LT 3V ?? IMPRESSION: ?? Mild bicompartmental osteoarthrosis. ? Electronically signed by: ??Dao Cullen MD ??04/01/2025 10:16 AM ?? EDT RP ? Dictated By: ?Dao Baker MD ? Signed By: ?<Electronically signed by Dao Bernal MD in OV> ? 04/01/25 1016 ? DD/ 0954 ? TD/TT: 04/01/25 1000 ? Prosthetic Lab Technician: ? Procedure Note Lela Lord - 04/01/[address] [id number] XRay Report Signed Patient: Bryanna EngelMR#: [id number] : 1995Acct:[id number] Age/Sex: 29 / FADM Date: 04/01/25 Loc: HO.HHCX Attending Dr: Katie Escobar MD Ordering Physician: Katie Jaffe MD Date of Service: 04/01/25 Procedure(s): XR knee LT 3V Accession Number(s): [id number] cc: Katie Jaffe MD EXAMINATION: XR KNEE, LEFT CLINICAL INFORMATION: ongoing left knee pain COMPARISON: None available. TECHNIQUE: Three views of the left knee. FINDINGS: Mild sclerosis and the articular surface of the tibial plateau. No acute cortical disruption or malalignment. No lytic or blastic lesions. No suprapatellar bursa joint effusion. No metallic or radiopaque foreign body. XR/XR knee LT 3V IMPRESSION: Mild bicompartmental osteoarthrosis. Electronically signed by: Dao Cullen MD 04/01/2025 10:16 AM EDT RP Dictated By: Dao Baker MD Signed By: <Electronically signed by Dao Bernal MDin OV> 04/01/25 1016 DD/ 0954 TD/TT: 04/01/25 1000 Prosthetic Lab Technician: Katie Escobar MD IMG XR PROCEDURES Final Result * POCT Urine (04/01/2025 9:30 AM EDT) Preg Test, Ur Negative Negative, Indeterminate, None Detected, Invalid, Specimen unsatisfactory for evaluation, Weakly Positive, 2+ QC Media Lot # [id number] Lot# Expiration Date [id number] Urine 04/01/2025 9:30 AM EDT Katie Escobar MD POINT OF CARE HANANE T ENTER/EDIT ORDERABLES Final Result documented in this encounter Visit Diagnoses Diagnosis Spotting- Primary Other specified noninflammatory disorder of vagina Dietary counseling Dietary surveillance and counseling Exercise counseling Elevated blood pressure reading in office with diagnosis of hypertension Acute pain of left knee Left knee pain, unspecified chronicity documented in this encounter Additional Health Concerns Assessment Noted Time PHQ-9 Depression Total Score: 9 06/20/20 10:23 AM EDT documented as of this encounter Care Teams Forming Machine Tender Relationship Specialty Start Date End Date Katie Jaffe MD [address] [place] [phone] PCP - General Internal Medicine 04/05/24 documented as of this encounter
--- OUTSIDE RECORDS SUMMARY | 2025-04-01 11:07 | XMS_ITS | Clinical Summary ---
Author Organization [employer] Address [address] [facility] [address] [place] [address] Care Team Providers Care Burlap Roll Coverer Name Role Phone Katie Jaffe MD Primary Care Pro vider Allergies Active Allergy Reactions Criticality Noted Date Comments Morphine 05/22/2024 Medications cholecalciferol (Vitamin D-3) 25 MCG (1000 UT) tablet TAKE 1 TABLET BY MOUTH EVERY DAY 90 tablet 03/26/20 25 Active lidocaine (Lidoderm) 5 % patch APPLY 1 PATCH TOPICALLY ONCE A DAY. REMOVE AND DISCARD PATCH WITHIN 12 HOURS OR DIRECTED BY MD. MAY USE 2 PATCHES AT A TIME. 60 patch 1 03/26/20 25 Active norethindrone (Ortho Micronor) 0.35 MG tablet Take 1 tablet (0.35 mg) by mouth Once per day. Start date on 12/02/2024 -that will be day to get new dose of inj every 3 months 28 tablet 3 04/01/20 25 2025 Active Blood Pressure kit 1 Device Once per day. 1 kit 04/01/20 25 Active hydroCHLOROthia zide (HYDRODiuril) 25 MG tabletIndicatio ns:Elevated blood pressure reading in office with diagnosis of hypertension Take 1 tablet (25 mg) by mouth Once per day. 90 tablet 04/01/20 25 2025 Active NIFEdipine XL (Procardia XL) 90 MG 24 hr tablet Take 1 tablet (90 mg) by mouth Once per day. Do not crush, chew, or split. 90 tablet 04/01/20 25 2025 Active Diclofenac Sodium 1 % gelIndications: Acute pain of left knee Apply 1 Application topically if needed each day (pain in knee). 50 g 1 04/01/20 25 Active tiZANidine (Zanaflex) 2 MG tablet Take 1 tablet (2 mg) by mouth every 6 (six) hours if needed for muscle spasms for up to 10 days. 30 tablet 05/22/20 24 2024 Discontinued(O ther) lidocaine (Lidoderm) 5 % patch Apply 1 patch topically Once per day. Remove & discard patch within 12 hours or as directed by MD. May use 2 patches at a time. 60 patch 2 05/22/20 24 2024 Discontinued(R eorder (will not trigger notification to Pharmacy)) Magnesium 400 MG capsule Take 400 mg by mouth Once per day. 90 capsule 06/20/20 24 2024 Discontinued(O ther) norethindrone (Ortho Micronor) 0.35 MG tablet Take 1 tablet (0.35 mg) by mouth Once per day. Start date on 12/02/2024 -that will be day to get new dose of inj every 3 months 28 tablet 3 10/10/20 24 2024 Discontinued(R eorder (will not trigger notification to Pharmacy)) cholecalciferol (Vitamin D-3) 25 MCG (1000 UT) tablet Take 1 tablet (25 mcg) by mouth Once per day. 90 tablet 1 10/10/20 24 2024 Discontinued(R eorder (will not trigger notification to Pharmacy)) hydroCHLOROthia zide 12.5 MG tabletIndicatio ns:Elevated blood pressure reading in office with diagnosis of hypertension Take 1 tablet (12.5 mg) by mouth Once per day. 30 tablet 11 01/01/202024 Discontinued(R eorder (will not trigger notification to Pharmacy)) sodium chloride ([place] Nasal [place]) 0.65 % nasal sprayIndication s:Influenza B Administer 1 spray into each nostril if needed for congestion. 30 mL 01/01/20 25 2024 Discontinued(O ther) NIFEdipine XL (Procardia XL) 90 MG 24 hr tablet Take 1 tablet (90 mg) by mouth Once per day. Do not crush, chew, or split. 90 tablet 01/31/20 25 2024 Discontinued(R eorder (will not trigger notification to Pharmacy)) Active Problems Problem Noted Date Diagnosed Date Health care maintenance 06/20/2024 Obesity 06/20/2024 Anxiety 06/20/2024 Migraine 06/20/2024 Benign essential hypertension 12/11/2020 Constipation 02/25/2016 Eczema 02/25/2016 Migraine without aura, not refractory 02/25/2016 Encounters Date Type Department Care Team Description 04/01/2025 9:00 AM EDT Office Visit [facility] [address] [place] [phone] Katie Jaffe MD Spotting (Primary Dx); Dietary counseling; Exercise counseling; Elevated blood pressure reading in office with diagnosis of hypertension; Acute pain of left knee; Left knee pain, unspecified chronicity 04/01/2025 Travel 03/27/2025 Telephone [facility] [address] [place] [address] Katie Jaffe MD Chart Prep 03/26/2025 Refill [facility] [address] [place] [phone] Yuli Condon NP Elevated blood pressure reading in office with diagnosis of hypertension 03/26/2025 Refill [facility] [address] [place] [address] Katie Jaffe MD 03/26/2025 Refill [facility] [address] [place] [address] Kait Hoff ANP 03/26/2025 Refill [facility] [address] [place] [address] Kaleb Lacy MD 03/26/2025 Travel 03/19/2025 Patient Outreach [facility] [address] [place] [address] Katie Jaffe MD Pre-visit Planning (SDOH will need to be completed in office. ) 02/07/2025 Population Health Risk Score [facility] Department [address] [place] [address], [place] [phone] Provider, Population Health Generic 01/30/2025 9:30 AM EST Clinical Support [facility] [address] [place] [phone] Antonia Bernal RN Benign essential hypertension 01/30/2025 Refill [facility] [address] [place] [address] Antonia Bernal RN 01/30/2025 Travel 01/16/2025 Telephone [facility] [address] [place] [address] Katie Jaffe MD May recall 01/15/2025 Telephone [facility] [address] [place] [address] Katie Jaffe MD No Show from Last 3 Months Immunizations Name Administration Dates Next Due DTP 10/27/1996, 6,09/27/1995,08/27 HPV, Quadrivalent 03/24/2008,10/25/2007,03/21/20 07 Hep B, adult 05/24/2021 Hib ([facility]) 10/27/1996,10/27/1995,08/27/1995 IPV 01/22/2002 Influenza, injectable, quadr ivalent, preservative free, pediatric 08/10/2010 MMR 07/28/1998,08/27/1995 Meningococcal MCV4P [id number] 03/25/2009 OPV, Trivalent 12/28/1995,10/27/1995,08/27/1995 Tdap 02/13/2023, 9,01/19/2017,10/25 Varicella 03/25/2009,08/26/1998 Family History Medical History Relation Name Comments HTN Father HTN Mother Relation Name Status Comments Father Mother Social History Tobacco Use Types Packs/Day Years [...] Orientation Straight 09/26/2022 10 :29 AM EDT Last Filed Vital Signs Vital Sign Reading [...] Mass Index 30.58 04/01/2025 9:06 AM EDT Plan of Treatment Upcoming Encounters Date Type Department Care Team (Late st Contact Info) Description 04/28/2025 10:30 AM EDT Procedure Visit [facility] [address] [place] [address] [phone] Bria Brito, ALIVIA [address] [place], [place] [phone] 06/10/2025 10:00 AM EDT Office Visit [facility] [address] [place] [address] [phone] Katie Jaffe MD [address] [place], [place] [phone] Health Maintenance Due Date Last Done Comments Family Planning (PISQ) 2009 Hepatitis B Vaccines (2 of 3 - 19+ 3-dose series) 06/21/2021 05/24/2021 COVID-19 Vaccine ( - season) 2024 Influenza Vaccine (#1) 2024 08/10/2010 HPV/Cotest 2024 Depression Screening 06/20/2025 06/20/2024, 06/20/20 Cervical Cancer Screening 06/22/2025 Pap Smear 06/22/2025 06/22/2022 Alcohol/Substance Use Screening 10/10/2025 10/10/2024 SDOH Screening 04/01/2026 04/01/2025 Tobacco Screening 04/01/2026 04/01/2025 Lipid Panel 08/08/2029 08/08/2024, 12/11/2020 DTaP/Tdap/Td Vaccines (9 - Td or Tdap) 02/13/2033 02/13/2023, 07/23/2019, 01/19/2017, Additional history exists Zoster Vaccines (1 of 2) 2044 RSV Patients and Patients Aged 60 years or older (1 - 1-dose 75+ series) 2069 HIB Vaccines Completed 10/27/1996, 11/1994, 08/27/1995 IPV Vaccines Completed 01/22/2002, 02/0 11/1995, 10/27/1995, Additional history exists HPV Vaccines Completed 03/24/2008, 09/28, 03/21/2007 Meningococcal Vaccine Aged Out 03/25/2009 No kyle macrina eligible based on patient's age to complete this topic HIV Screening Completed 08/08/2024, 05/05/2021 Hepatitis C Screening Completed 08/08/2024, 021 Hepatitis A Vaccines Aged Out No long er eligible based on patient's age to complete this topic Pneumococcal Vaccine: Pediatrics (0 to 5 Years) and At-Risk Patients (6 to 49) Years) Aged Out No longer eligible based on patient's age to complete this topic RSV under 20 months Aged Out No longe r eligible based on patient's age to complete this topic Rotavirus Vaccines Aged Out No longer eligible based on patient's age to complete this topic Procedures Procedure Name Priority Date/Time Associated Diagnosis Comments XR KNEE 3 VIEWS LEFT Routine 04/01/2025 9:54 AM EDT Acute pain of left knee POCT , URINE Routine 04/01/2025 9:30 AM EDT Spotting HEPATITIS C AB W/REFL TO HCV RNA, QN, PCR Routine 08/08/2024 8:28 AM EDT Annual physical exam HIV 1/2 ANTIGEN/ANTIBODY, FOURTH GENERATION W/RFL Routine 08/08/2024 8:28 AM EDT Annual physical exam LIPID PANEL, STANDARD Routine 08/08/2024 8:28 AM EDT Annual physical exam THINPREP IMAGING SYSTEM PAP Routine 06/22/2022 12:06 PM EDT from Last 3 Months or Most Recently Relevant to Health Maintenance Results * XR Knee 3 Views Left (04/01/2025 9:54 AM EDT) Anatomical Region Laterality Modality Lower Extremities, Knee Left Radiogra phic Imaging 04/01/2025 9:54 AM EDT Narrative 04/01/2025 10:19 AM EDT ?[facility] ?[address] ?[place] [address] ?XRay Report ? Signed ? Patient: Toro,Bryanna ?MR#: [id number] ?? [id number] ? : 1995 ?Acct:[id number] ? Age/Sex: 29 / F ?ADM Date: 04/01/25 ? Loc: HO.HHCX ? Attending Dr: Katie Escobar MD ? Ordering Physician: Katie Jaffe MD ?? Date of Service: 04/01/25 ?? Procedure(s): XR knee LT 3V ?? Accession Number(s): [id number] ? cc: Katie Jaffe MD ? EXAMINATION: [...] Cullen MD ??04/01/2025 10:16 AM ?? EDT ? Dictated By: ?Dao Baker MD ? Signed By: ?<Electronically signed by Dao Bernal MD in OV> ? 04/01/25 1016 ? DD/ 0954 ? TD/TT: 04/01/25 1000 ? Sample Book Maker: ? Procedure Note Pop, Lela - 04/01/[address] [address] XRay Report Signed Patient: Bryanna EngelMR#: [id number] : 1995Acct:[id number] Age/Sex: 29 / FADM Date: 04/01/25 Loc: HO.HHCX Attending Dr: Katie Escobar MD Ordering Physician: Katie Jaffe MD Date of Service: 04/01/25 Procedure(s): XR knee LT 3V Accession Number(s): [id number] cc: Katie Jaffe MD EXAMINATION: XR KNEE, [...] Dao Cullen MD 04/01/2025 10:16 AM EDT Dictated By: Dao Baker MD Signed By: <Electronically signed by Dao Bernal MDin OV> 04/01/25 1016 DD/ 0954 TD/TT: 04/01/25 1000 Sample Book Maker: Katie Escobar MD IMG XR PROCEDURES Final Result * POCT Urine (04/01/2025 9:30 AM EDT) Pathologist [facility] Preg Test, Ur Negative Negative, Indeterminate, None Detected, Invalid, Specimen unsatisfactory for evaluation, Weakly Positive, 2+ QC Media Lot # [id number] Lot# Expiration Date [id number] Urine 04/01/2025 9:30 AM EDT Katie Escobar MD POINT OF CARE HANANE T ENTER/EDIT ORDERABLES Final Result * Hepatitis C Antibody with Reflex to HCV, RNA, Quantitative, Real-Time PCR (08/08/2024 8:28 AM EDT) Pathologist [facility] Hepatitis C Antibody Nonreactive Nonreactive [facility] Comment:Antibodies to HCV no t detected; does not exclude early acuteHCV infection. Blood Venous blood specimen / Unknown 08/08/2024 8:28 AM EDT 08/08/2024 11:12 AM EDT us Katie Escobar MD LAB BLOOD ORDERAB LES Final Result Performing Organization Address [facility]/ZIP Co de Phone Number [facility] [address] [place] [address] [phone] * HIV-1/2 Antigen and Antibodies, Fourth Generation, with Reflexes (08/08/2024 8:28 AM EDT) HIV AB/AG Nonreactive Nonreactive [facility] Comment:HIV-1 p24 Ag and/or HIV-1/HIV-2 Ab not detected.A test result that is nonreactive does not exclude thepossibility of exposure to or infection with HIV-1 and/orHIV-2. Nonreactive results in this assay for individualswith prior exposure to HIV-1 and/or HIV-2 may be due toantigen and antibody levels that are below the limit ofdetection of this assay.The [email or web address] HIV Ag/Ab Combo assay result andsupplemental assay results should be interpreted inconjunction with the patient's clinical presentation,history and other laboratory results. If the results areinconsistent with clinical evidence, additional testing issuggested to confirm the result. Blood Venous blood specimen / Unknown 08/08/2024 8:28 AM EDT 08/08/2024 11:12 AM EDT us Katie Escobar MD LAB BLOOD ORDERAB LES Final Result Performing Organization Address [facility]/ZIP Co de Phone Number [facility] [address] [place] [address] [phone] * (ABNORMAL) Lipid Panel, Standard (08/08/2024 8:28 AM EDT) Triglycerides 99 <150 mg/dL [facility] Comment:Desirable Triglyceri de: less than 150 mg/dLBorderline High Triglyceride 150-199 mg/dLHigh Triglyceride: 200-499 mg/dLVery High Triglyceride: greater than or equal to 5OO mg/dL Cholesterol 169 <200 mg/dL [facility] Comment:Desirable Cholestero l: less than 200 mg/dLBorderline High Cholesterol: 200-239 mg/dLHigh Cholesterol: greater than 239 mg/dL LDL Cholesterol Calculated 103(H) <100 mg/dL [facility] Comment:Desirable LDL: less than 100 mg/dLNear Optimal/Above Optimal LDL: 110- 129 mg/dLBorderline High LDL: 130-159 mg/dLHigh LDL: 160-189 mg/dLVery High LDL: greater than or equal to 190 mg/dL HDL Cholesterol 47 >40 mg/dL [facility] Comment:Desirable HDL: great er than 40 mg/dL Note: This HDL assay may give artificially low results in patients with liver disease. Blood Venous blood specimen / Unknown 08/08/2024 8:28 AM EDT 08/08/2024 11:12 AM EDT Katie Escobar MD LAB BLOOD ORDERAB LES Final Result [facility] [address] [place] [phone] * THINPREP TIS PAP (06/22/2022 12:06 PM EDT) Clinical Information: None given [employer] [facility] COMMENT SEE COMMENT [facility] Comment: EXPLANATORY NOTE: ? The Pap is a screening test for cervical cancer. It is ?? not a diagnostic test and is subject to false negative ?? and false positive results. It is most reliable when a ?? satisfactory sample, regularly obtained, is submitted ?? with relevant clinical findings and history, and when ?? the Pap result is evaluated along with historic and ?? current clinical information. ?? COMMENT: This Pap test has been evaluated with computer assisted technology. [employer] [facility] Analyst Programmer : SEE COMMENT [employer] [facility] Comment: AI CT(ASCP) CT screening location: [address] ??[address] Infection Shift in vaginal des suggestive of bacterial vaginosis. [employer] [facility] Interpretation/R esult: Negative for intraepithelial lesion or malignancy. [employer] [facility] LMP: [phone] [facility] Prev. BX: NONE GIVEN [facility] Prev. PAP: NONE GIVEN [facility] SOURCE: None given [facility] Statement Of Adequacy: SEE COMMENT [facility] Comment: Satisfactory for evaluation. Endocervical/transformation zone component present. 06/22/2022 12:0 6 PM EDT Bria Brito CNM LAB PATHOLOGY ORDERABLES Final Result [facility] [address] from Last 3 Months or Most Recently Relevant to Health Maintenance Insurance [facility] [address] [address] [place] [id number] Care Teams Burlap Roll Coverer Relationship Specialty Start Date End Date Katie Jaffe MD [address] [place] [address] PCP - General Internal Medicine 04/05/24
== END 2025-04-01 09:55 | disposition home or self-care (01) ==
LOC: HO.HHCX 09:54
PROVIDERS: Visit Provider Student in an Organized Health Care Education/Training Program
DX: M25.562 Pain in left knee (principal)
CPT/HCPCS: 73562

== ENCOUNTER → 2025-04-01 09:54 | Outpatient (BNV) | payer MEDICAID, SELFPAY | PROVIDERS: Visit Provider Radiology Diagnostic Radiology | DX: M25.562 Pain in left knee (principal) | CPT/HCPCS: 73562 ==

== ENCOUNTER 2025-06-24 09:47 | Outpatient (REF) | payer MEDICAID, SELFPAY ==
--- OUTSIDE RECORDS SUMMARY | 2025-06-24 10:24 | XMS_ITS | Encounter Summary ---
Author Organization [employer] Address [address] [place] [address] [address] [place] [address] Care Team Providers Care Hoop Driving Machine Operator Name Role Phone Katie Jaffe MD Primary Care Pro vider Reason for Visit * Reason Onset Date Comments Med Refill 06/09/2025 Encounter Details Date Type Department Care Team ([facility] st Contact Info) Description 06/09/2025 Refill [facility] [address] [place] [address] Katie Jaffe MD [address] [place] [address] Social History Tobacco Use Types Packs/Day Years [...] as of this encounter Plan of Treatment Not on file documented as of this encounter Visit Diagnoses Not on filedocumented in this encounter Additional Health Concerns Assessment Noted Time PHQ-9 Depression Total Score: 9 06/20/20 10:23 AM EDT documented as of this encounter Care Teams Hoop Driving Machine Operator Relationship Specialty Start Date End Date Katie Jaffe MD [address] [place] [phone] PCP - General Internal Medicine 04/05/24 documented as of this encounter
[2025-06-24 11:50] LABS: Alanine Aminotransferase 16 U/L (0-31); Albumin Level 4.9 g/dL (3.5-5.0); Alkaline Phosphatase 55 U/L (39-117); Anion Gap 11 (12-20); Aspartate Amino Transferase 18 U/L (5-31); Blood Urea Nitrogen 13 mg/dL (9-16); Calcium 9.1 mg/dL (8.4-10.2); Carbon Dioxide 28 mmol/L (22-29); Chloride 104 mmol/L (96-108); Estimated Glomerular Filt Rate > 60; Potassium 3.9 mmol/L (3.3-5.1); Sodium 139 mmol/L (135-145); Total Protein 7.8 g/dL (6.5-8.0)
== END 2025-06-24 09:48 | disposition home or self-care (01) ==
LOC: HO.HHCL 09:47
PROVIDERS: PCP Student in an Organized Health Care Education/Training Program; Visit Provider Student in an Organized Health Care Education/Training Program
DX: I10 Essential (primary) hypertension (principal)
CPT/HCPCS: 36415; 80053